=== PATIENT | male | born 1970 | race Hispanic/Latino ===

== ENCOUNTER 2018-10-02 20:41 | Emergency (ER) | payer OTHER, SELFPAY ==
[2018-10-02] MEDS ORDERED: IBUPROFEN 600 MG TABLET ONE (21:34)
== END 2018-10-02 22:25 | disposition home or self-care (01) ==
LOC: EDH 20:41
DX: S62.396A Other fracture of fifth metacarpal bone, right hand, initial encounter for closed fracture (principal); W21.11XA Struck by baseball bat, initial encounter; Y93.64 Activity, baseball; Y92.39 Other specified sports and athletic area as the place of occurrence of the external cause; Y99.8 Other external cause status
CPT/HCPCS: 29125; 73130

== ENCOUNTER 2018-12-22 18:58 | Emergency (ER) | payer OTHER, SELFPAY | END 2018-12-22 19:29 | disposition home or self-care (01) | LOC: EDH 18:58 | DX: M79.672 Pain in left foot (principal) | CPT/HCPCS: 99281 ==

== ENCOUNTER 2019-07-10 20:56 | Emergency (ER) | payer OTHER ==
[2019-07-10] MEDS ORDERED: KETOROLAC TROMETHAMINE 60 MG/2 ML VIAL ONE (21:56)
[2019-07-10] MEDS ORDERED: COLCHICINE 0.6 MG TABLET ONE (23:35)
[2019-07-11] MEDS ORDERED: ACETAMINOPHEN EXTRA STRENGTH 500 MG TABLET ONE (00:07)
== END 2019-07-11 01:22 | disposition home or self-care (01) ==
LOC: EDH 20:56
DX: S83.91XA Sprain of unspecified site of right knee, initial encounter (principal); X58.XXXA Exposure to other specified factors, initial encounter; Y93.89 Activity, other specified; Y92.89 Other specified places as the place of occurrence of the external cause; Y99.8 Other external cause status
CPT/HCPCS: 73562; 96372; 99283; J1885

== ENCOUNTER 2019-10-03 15:38 | Emergency (ER) | payer SELFPAY ==
[2019-10-03 16:30] LABS: BASOPHILS % (AUTO) 0.2 % (0.0-5.0); HEMATOCRIT 45.8 % (42-54); LYMPHOCYTES % (AUTO) 22.1 % (21.0-51.0); MEAN CORPUSCULAR HEMOGLOBIN 31.4 pg (27.0-33.0); MEAN CORPUSCULAR HGB CONC 34.7 g/dL (32.0-36.0); MEAN CORPUSCULAR VOLUME 90.3 fL (79-99); MONOCYTES % (AUTO) 9.2 % (3.0-13.0); NEUTROPHILS % (AUTO) 68.1 % (40.0-77.0); PLATELET COUNT (AUTO) 211 K/uL (130-400); RED BLOOD CELL COUNT(AUTO) 5.07 MIL/uL (4.50-6.20); RED CELL DISTRIBUTION WIDTH 12.2 % (11.0-15.5); WHITE BLOOD COUNT (AUTO) 5.1 K/uL (4.8-10.8)
[2019-10-03 16:34] LABS: APPEARANCE,URINE Cloudy (CLEAR); BILIRUBIN,URINE Small (NEGATIVE); COLOR,URINE Dark Yellow (YELLOW); GLUCOSE, URINE (UA) Negative (NEGATIVE); KETONES,URINE 15 mg/dL (NEGATIVE); LEUKOCYTE ESTERASE ,URINE Trace (NEGATIVE); NITRATE,URINE Negative (NEGATIVE); OCCULT BLOOD,URINE Negative (NEGATIVE); PH,URINE 5.5 (5.0-8.0); PROTEIN,URINE POS 1+ mg/dL (NEGATIVE)
[2019-10-03 16:37] LABS: CREATININE 1.4 mg/dL (0.5-1.5); POTASSIUM 4.6 mmol/L (3.5-5.1)
[2019-10-03 16:43] LABS: ALBUMIN 3.6 g/dL (3.5-5.0); BILIRUBIN,TOTAL 0.4 mg/dL (0.2-1.0); TOTAL PROTEIN, SERUM 7.5 g/dL (6.0-8.3)
[2019-10-03 17:10] LABS: BACTERIA,URINE Few /HPF (None Seen); MUCUS,URINE Few LPF (None Seen); OTHER CASTS, URINE WBC CASTS 1+ /LPF (None Seen); RBC,URINE None Seen /HPF (0-1); SQUAMOUS EPITHELIAL CELL,UR None Seen /HPF (0-2)
[2019-10-03 19:19] LABS: RAPID GROUP A STREP NEGATIVE (NEGATIVE)
== END 2019-10-03 20:03 | disposition home or self-care (01) ==
LOC: EDH 15:38
DX: R05 Cough (principal); R10.9 Unspecified abdominal pain; Z87.891 Personal history of nicotine dependence
CPT/HCPCS: 36415; 71045; 80053; 81001; 82150; 83690; 85025; 87804; 87880

== ENCOUNTER 2021-12-28 07:13 | Emergency (ER) | payer BC, OTHER ==
[~2021-12-28] VITALS: Ht 182.9 cm; Wt 129.3 kg
[2021-12-28 07:14] VITALS: BP 137/78
[2021-12-28] MEDS ORDERED: INDO50CA98 PO (07:38)
[2021-12-28] MEDS ORDERED: KETOROLAC 60 MG VIAL (30MG/ML) IM ONE (08:00)
== END 2021-12-28 07:45 | disposition home or self-care (01) ==
LOC: EDH 07:13
DX: M10.9 Gout, unspecified (principal)
CPT/HCPCS: 99284; 36415; 96372; J1885

== ENCOUNTER 2022-01-22 07:26 | Emergency (ER) | payer BC ==
[~2022-01-22] VITALS: Ht 182.9 cm; Wt 135.6 kg
[~2022-01-22 07:26] MED LIST: INDO50CA98 PO
[2022-01-22 07:27] VITALS: BP 122/87
[2022-01-22] MEDS ORDERED: KETOROLAC 60 MG VIAL (30MG/ML) IM ONE (08:30)
[2022-01-22] MEDS ORDERED: INDO50CA98 PO (08:31)
== END 2022-01-22 08:44 | disposition home or self-care (01) ==
LOC: EDH 07:26
DX: M10.9 Gout, unspecified (principal)
CPT/HCPCS: 99284; 96372; J1885

== ENCOUNTER → 2022-04-05 | Emergency (ER) | payer BC | LOC: EDH 15:10 | DX: M25.569 Pain in unspecified knee (principal); Z53.21 Procedure and treatment not carried out due to patient leaving prior to being seen by health care provider ==

== ENCOUNTER 2022-05-23 06:31 | Emergency (ER) | payer BC ==
[~2022-05-23] VITALS: Ht 182.9 cm; Wt 131.1 kg
[2022-05-23 08:12] LABS: BASOPHILS % (AUTO) 0.6 % (0.0-5.0); EOSINOPHILS % (AUTO) 1.5 % (0.0-8.0); LYMPHOCYTES % (AUTO) 19.3 % (21.0-51.0); MEAN CORPUSCULAR HEMOGLOBIN 31.8 pg (27.0-33.0); MEAN CORPUSCULAR HGB CONC 35.5 g/dL (32.0-36.0); MEAN CORPUSCULAR VOLUME 89.6 fL (79-99); MONOCYTES % (AUTO) 7.6 % (3.0-13.0); NEUTROPHILS % (AUTO) 70.9 % (40.0-77.0); PLATELET COUNT (AUTO) 245 K/uL (130-400); RED BLOOD CELL COUNT(AUTO) 4.69 MIL/uL (4.50-6.20); RED CELL DISTRIBUTION WIDTH 12.3 % (11.0-15.5); WHITE BLOOD COUNT (AUTO) 6.8 K/uL (4.8-10.8)
[2022-05-23 08:52] LABS: CREATININE 1.1 mg/dL (0.5-1.5); POTASSIUM 3.9 mmol/L (3.5-5.1)
[2022-05-23 08:56] LABS: ALBUMIN 2.8 g/dL (3.5-5.0)
[2022-05-23] MEDS ORDERED: INDO50CA98 PO (09:10)
[2022-05-23] MEDS ORDERED: KETOROLAC 60 MG VIAL (30MG/ML) IM ONE ×2 (09:16→09:30)
[2022-05-23 09:19] VITALS: BP 125/81
== END 2022-05-23 09:28 | disposition home or self-care (01) ==
LOC: EDH 06:31
DX: M10.9 Gout, unspecified (principal)
CPT/HCPCS: 99284; 80053; 85025; 36415; 73630; 96372; J1885

== ENCOUNTER 2022-07-11 13:54 | Emergency (ER) | payer BC ==
[~2022-07-11] VITALS: Ht 182.9 cm; Wt 132.9 kg
[2022-07-11] MEDS ORDERED: INDO50CA98 PO (15:59)
[2022-07-11] MEDS ORDERED: KETOROLAC 30MG VIAL (30MG/ML) IM ONE (16:00)
[2022-07-11 17:15] VITALS: BP 146/80
== END 2022-07-11 17:31 | disposition home or self-care (01) ==
LOC: EDH 13:54
DX: M10.9 Gout, unspecified (principal)
CPT/HCPCS: 99284; 84550; 36415; 73660; 96372; J1885

== ENCOUNTER 2022-11-13 15:54 | Emergency (ER) | payer BC ==
[~2022-11-13] VITALS: Ht 182.9 cm; Wt 131.5 kg
[2022-11-13] MEDS ORDERED: ACETAMINOPHEN 500 MG TABLET PO ONE (16:00)
[2022-11-13] MEDS ORDERED: OSEL75 PO (18:26)
[2022-11-13] MEDS ORDERED: AMOX1TAB16 PO (18:26)
[2022-11-13 18:29] VITALS: BP 132/84
== END 2022-11-13 18:36 | disposition home or self-care (01) ==
LOC: EDH 15:54
DX: J10.1 Influenza due to other identified influenza virus with other respiratory manifestations (principal); J02.0 Streptococcal pharyngitis; Z20.822 Contact with and (suspected) exposure to COVID-19; Z79.899 Other long term (current) drug therapy
CPT/HCPCS: 99283; 87635; 87880; 87804 ×2; C9803

== ENCOUNTER 2023-11-29 20:48 | Emergency (ER) | payer BC ==
[~2023-11-29] VITALS: Ht 182.9 cm; Wt 131.5 kg
[~2023-11-29 20:48] MED LIST changes: +AMOX1TAB16 PO; +OSEL75 PO
[2023-11-29] MEDS: ORPHENADRINE 60MG/2ML IM STA (23:12)
[2023-11-29] MEDS: KETOROLAC 30MG VIAL (30MG/ML) IM ONE (23:13)
[2023-11-29 23:14] VITALS: BP 132/80; PULSE 80; RESP 20; O2SAT 100
[2023-11-29] MEDS ORDERED: METH-662 PO (23:31)
[2023-11-29] MEDS ORDERED: NAPR375T6 PO (23:31)
== END 2023-11-29 23:56 | disposition home or self-care (01) ==
LOC: EDH 20:48
DX: M10.9 Gout, unspecified (principal); Z79.899 Other long term (current) drug therapy
CPT/HCPCS: 99284; 96372 ×2; J1885; J2360

== ENCOUNTER 2023-12-04 13:14 | Emergency (ER) | payer BC ==
[~2023-12-04] VITALS: Ht 182.9 cm; Wt 131.5 kg
[~2023-12-04 13:14] MED LIST changes: +METH-662 PO; +NAPR375T6 PO
[2023-12-04] MEDS: HYDROCODONE/ACETAMINOPHEN 5/325 MG TAB PO ONE (13:33)
[2023-12-04] MEDS ORDERED: COLCHICINE 0.6 MG TABLET PO SCH (14:30)
[2023-12-04] MEDS ORDERED: PRED5TAB PO (14:34)
[2023-12-04] MEDS ORDERED: ALLO100T PO (14:34)
[2023-12-04] MEDS: KETOROLAC 30MG VIAL (30MG/ML) IM ONE (14:40)
[2023-12-04] MEDS: PREDNISONE 20 MG TABLET PO ONE (14:40)
[2023-12-04] MEDS: COLCHICINE 0.6 MG TABLET PO ONE (15:01)
[2023-12-04] MEDS: COLCHICINE 0.6 MG TABLET PO SCH (15:25)
[2023-12-04 15:26] VITALS: BP 131/71; PULSE 74; RESP 18; O2SAT 98
== END 2023-12-04 15:47 | disposition home or self-care (01) ==
LOC: EDH 13:14
DX: M10.9 Gout, unspecified (principal); M77.31 Calcaneal spur, right foot; F17.200 Nicotine dependence, unspecified, uncomplicated; Z79.899 Other long term (current) drug therapy
CPT/HCPCS: 99284; 84550; 85651; 36415; 73610; 96372; J1885

== ENCOUNTER 2023-12-29 19:58 | Emergency (ER) | payer BC ==
[~2023-12-29] VITALS: Ht 182.9 cm; Wt 131.5 kg
[~2023-12-29 19:58] MED LIST changes: +ALLO100T PO; +PRED5TAB PO
[2023-12-29] MEDS ORDERED: PRED20TA3 PO (20:49)
[2023-12-29] MEDS ORDERED: COLC0.6T73 PO (20:49)
[2023-12-29] MEDS: COLCHicine 0.6 MG TABLET PO SCH (21:16)
[2023-12-29] MEDS: Solu-medROL 125MG VIAL IM ONE (21:17)
[2023-12-29] MEDS: KETOROLAC 15MG/ML VIAL (15MG/ML) IM ONE (21:17)
[2023-12-29] MEDS ORDERED: INDO50CA98 PO (21:22)
[2023-12-29] MEDS: hydroMORPHone 0.5 MG SYG (0.5MG/0.5ML) IM ONE (22:36)
[2023-12-29 23:30] VITALS: BP 132/74; PULSE 76; RESP 18; O2SAT 98
== END 2023-12-29 23:31 | disposition home or self-care (01) ==
LOC: EDH 19:58
DX: M77.31 Calcaneal spur, right foot (principal); E66.01 Morbid (severe) obesity due to excess calories; M10.9 Gout, unspecified; F10.90 Alcohol use, unspecified, uncomplicated; F17.200 Nicotine dependence, unspecified, uncomplicated; Z79.52 Long term (current) use of systemic steroids; Z79.899 Other long term (current) drug therapy
CPT/HCPCS: 99284; 96372 ×3; J2919; J1885; J1170

== ENCOUNTER 2024-05-03 08:24 | Emergency (ER) | payer BC ==
[~2024-05-03] VITALS: Ht 182.9 cm; Wt 133.8 kg
[~2024-05-03 08:24] MED LIST changes: +COLC0.6T73 PO; +NAPR-1505 PO; -NAPR375T6 PO; +PRED20TA3 PO
[2024-05-03] MEDS: dexaMETHasone SOD PHOSPHATE 4 MG/ML 1ML VIAL IM ONE (09:02)
[2024-05-03] MEDS: ketOROlac 60 MG VIAL (30MG/ML) IM ONE (09:02)
[2024-05-03] MEDS: HYDROcodone/acetaMINOPHEN 10/325 MG TAB PO ONE (09:03)
--- NOTE | 2024-05-03 09:23 | ERN ---
ED Note History of Present Illness Stated Complaint: ELBOW PAIN Chief Complaint: Elbow Problem Time Seen by MD: 08:28 Dictation: 53-year-old male presents to the ED for evaluation of right elbow pain onset 1 week ago. Patient reports history of gout. Patient denies any trauma, injury or any other associated symptoms at this time. Allergies: Coded Allergies: No Known Allergies (Unverified Allergy, Unknown, 10/02/18) No Known Drug Allergies (Unverified Allergy, Unknown, 07/11/19) Home Meds Active Scripts Naproxen (Naproxen) 250 Mg Tablet, 250 MG PO BID for 5 Days, #10 TAB Prov:JOHN MARTINO MD 05/03/24 Colchicine (Colchicine) 0.6 Mg Capsule, 1 CAP PO DAILY for 30 Days, #30 CAP 0 Refills Prov:JOHN MARTINO MD 05/03/24 Indomethacin (Indomethacin) 50 Mg Capsule, 50 MG PO TID for gouty pain, #30 CAP Prov:LENNY GILL MD 12/29/23 Prednisone (Prednisone) 20 Mg Tablet, 20 MG PO DAILY for 5 Days, #5 TAB Prov:LENNY GILL MD 12/29/23 Colchicine (Colchicine) 0.6 Mg Tablet, 0.6 MG PO QID for gout pain, #30 TAB Prov:LENNY GILL MD 12/29/23 Prednisone (Prednisone) 5 Mg Tablet, 30 MG PO DAILY for 4 Days, #4 TAB 0 Refills Prov:JOSE DUNN NP 12/04/23 Allopurinol (Allopurinol) 100 Mg Tablet, 100 MG PO DAILY for 7 Days, #7 TAB 0 Refills Prov:JOSE DUNN NP 12/04/23 Methocarbamol (Robaxin) 750 Mg Tab, 750 MG PO BID for 5 Days, #10 TAB Prov:MAGGIE HERNANDEZ MD 11/29/23 Naproxen (Naproxen) 375 Mg Tablet.dr, 375 MG PO BID PRN for PAIN for 10 Days, #20 TAB Prov:MAGGIE HERNADNEZ MD 11/29/23 Amoxicillin/Potassium Clav (Amox Tr-K Clv 875-125 mg Tab) 1 Each Tablet, 1 EACH PO BID for 10 Days, #20 TAB Prov:LAURA COOK 11/13/22 Oseltamivir Phosphate (Tamiflu) 75 Mg Cap, 75 MG PO BID for 5 Days, #10 CAP Prov:LAURA COOK V RIVET HOLE MACHINE OPERATOR 11/13/22 Indomethacin (Indomethacin) 50 Mg Capsule, 50 MG PO TID for 30 Days, #90 CAP Prov:LAURA COOK V RIVET HOLE MACHINE OPERATOR 07/11/22 Indomethacin (Indomethacin) 50 Mg Capsule, 50 MG PO TID PRN for PAIN, #30 CAP 0 Refills Prov:GERTRUDE TARIQ MD 05/23/22 Indomethacin (Indomethacin) 50 Mg Capsule, 50 MG PO TIDP PRN for Gout pain, #20 CAP 2 Refills Prov:KIERAN ECHEVERRIA MD 01/22/22 Indomethacin (Indomethacin) 50 Mg Capsule, 50 MG PO TIDP PRN for SEVERE PAIN (7- 10), #20 CAP 0 Refills Prov:KIERAN ECHEVERRIA MD 12/28/21 Past Medical History Past Medical History: Other Additional Past Medical Hx: GOUT Surgical History: None Family History: CAD Social History: Smokers, ETOH, Lives with family, Other Review of System Dictation Constitutional: Negative for fever,chills, and weight loss Eyes: Negative for injury, pain,redness, and discharge ENT: Negative for injury,pain or swelling Cardiovascular: Negative for chest pain, palpitations, and edema Respiratory: Negative for shortness of breath, cough, and wheezing, Abdomen/GI: Negative for abdominal pain, nausea, vomiting, diarrhea, and constipation Back: Negative for injury and pain : Negative for injury, bleeding and discharge MS/Extremity: Positive for right elbow pain Negative for injury and deformity Skin: Negative for rash, and discoloration Neuro: Negative for headache, weakness, numbness, tingling, and seizure Psych: Negative for suicide ideation, homicidal ideation, and hallucinations Initial Vital Sign VS Vital Signs Date Time Temp Pulse Resp B/P (MAP) Pulse Ox O2 Delivery O2 Flow Rate FiO2 05/03/24 08:27 98.2 71 18 135/67 98 05/03/24 08:54 Room Air* 0 21 Physical Exam Dictation General: awake, alert, NAD Head/Face: Normocephalic, atraumatic Eyes: PERRL, EOMI, vision at baseline ENT: oral cavity clear, TMs clear, no signs of infection Neck: Trachea midline, supple, no nuchal rigidity Cardiovascular: RRR, normal S1/S2, No MRGs, no JVD Respiratory: CTAB, no respiratory distress, No rales or wheezes Abdomen: Soft, non-tender, non-distended, normal bowel sounds, no guarding or rebound. Skin: Warm, dry, normal turgor, no rash MS/Extremity: Pulses equal, no cyanosis, neurovascular intact, painful range of motion Neuro: COAx4, GCS 15, strength 5/5, CN 2-12 intact, normal cerebellar exam, normal gait, Psych: Normal behavior, mood, and affect normal Results (Laboratory/Radiology) Laboratory/Radiology Laboratory Tests Test 05/03/24 08:39 Whole Blood Glucose 112 MG/DL (70-110) H Labs Reviewed?: Yes ED Course ED Course Orders Procedure Category Date Status Time Dexamethasone 4mg/Ml PHA 05/03/24 Complete 1ml Vial (Dexametha 09:00 Ketorolac 60mg/2ml PHA 05/03/24 Complete (Toradol 60mg/2ml) 09:00 Hydrocodone/Apap PHA 05/03/24 Complete 10/325 Tab ([place] 10) 09:00 Current Medications Medications (Trade) Dose Ordered Sig/Dino Route PRN Reason Start Time Stop Time Status Last Admin Dose Admin Acetaminophen/ Hydrocodone Bitart (NORco 10) 1 tab ONCE ONCE PO 05/03/24 09:00 05/03/24 09:01 DC 05/03/24 09:03 Dexamethasone Sodium Phosphate (dexaMETHasone 4MG/ML 1ML VIAL) 6 mg ONCE ONCE IM 05/03/24 09:00 05/03/24 09:01 DC 05/03/24 09:02 Ketorolac Tromethamine (toRADol 60MG/ 2ML) 30 mg ONCE ONCE IM 05/03/24 09:00 05/03/24 09:01 DC 05/03/24 09:02 Vital Signs Date Time Temp Pulse Resp B/P (MAP) Pulse Ox O2 Delivery O2 Flow Rate FiO2 05/03/24 08:54 98.6 70 16 130/84 99 Room Air* 0 21 05/03/24 08:27 98.2 71 18 135/67 98 Medical Decision Making MDM MDM: Differential diagnosis: Elbow pain, gout, elbow effusion Previous outside records reviewed: Old ER visits. Need for hospitalization: Patient does not meet criteria for hospitalization. Need for emergency major/minor surgery: No Patient's prior external medical records from other ER visits were reviewed by me as indicated. Prior testing and results from previous visits were reviewed. Prior tests were taken into account with medical decision making and resource utilization, independent historian/historians were used to obtain complete medical history. I independently interpreted the test that were performed, results were reviewed by me and considered findings on radiology if ordered. Medical management and examination interpretation discussions were had by me with other qualified healthcare professionals as indicated for the patient's care. Patient is improving and stable. Discussed physical findings, results, current treatment plan for discharge and plan of treatment with patient. Follow up and return to emergency department and warnings for any new or worsening conditions given. Patient understands and agrees with plan discussed. All questions have been answered at this time. DX & DISP Disposition: Discharge Departure Impression: Primary Impression: Acute gout Additional Impression: Effusion, right elbow Condition: Stable Scripts Naproxen (Naproxen) 250 Mg Tablet 250 MG PO BID for 5 Days, #10 TAB Prov: JOHN MARTINO MD 05/03/24 Colchicine (Colchicine) 0.6 Mg Capsule 1 CAP PO DAILY for 30 Days, #30 CAP 0 Refills Prov: JOHN MARTINO MD 05/03/24 Referrals: JCARLOS BALLESTEROS MD (PCP) Time of Disposition: 10:00 I have reviewed, & agreed with my scribe's, documentation. (Entered by Tate Dennison, acting as a scribe for Dr. Martino) I personally scribed for JOHN MARTINO MD ([email or web address]) on 05/03/24 at 09:23. Electronically submitted by Tate Dennison ([email or web address]). I personally scribed for JOHN MARTINO MD ([email or web address]) on 05/03/24 at 10:06. Electronically submitted by Tate Dennison ([email or web address]). JOHN MARTINO MD May 03, 2024 09:23
[2024-05-03] MEDS ORDERED: COLC0.6C3 PO (10:00)
[2024-05-03] MEDS ORDERED: NAPR-1196 PO (10:00)
[2024-05-03 10:07] VITALS: BP 127/76; PULSE 70; RESP 16; TEMP 98.6; O2SAT 98
[2024-05-03] MEDS: hydroMORPHone 0.5 MG SYG (0.5MG/0.5ML) IVP ONE (10:49)
--- NOTE | 2024-05-03 11:05 | NUR ---
PT AAOX4, STABLE NO DISTRESS VITALS WNL PT MEDICATED FOR PAIN PRIOR TO DISCHARGED PT STATES HE READY TO GO HOME. PT HAD NO IV, PT GIVEN INSTRUCTIONS FOR HOME WILL VICE PRESIDENT NETWORK PRESCRIPTIONS FROM PHARMACY AND START TODAY. PT DRIVEN HOME BY .
== END 2024-05-03 11:09 | disposition home or self-care (01) ==
LOC: EDH 08:24
DX: M10.9 Gout, unspecified (principal); F17.200 Nicotine dependence, unspecified, uncomplicated; Z79.52 Long term (current) use of systemic steroids; Z79.899 Other long term (current) drug therapy
CPT/HCPCS: 99284; 96374; 82948; 96372 ×2; J1100; J1885; J1171

== ENCOUNTER 2024-06-19 07:11 | Emergency (ER) | payer BC ==
[~2024-06-19] VITALS: Ht 182.9 cm; Wt 133.8 kg
[~2024-06-19 07:11] MED LIST changes: +COLC0.6C3 PO; +NAPR-1196 PO
--- NOTE | 2024-06-19 08:37 | ERN ---
General Chief Complaint: Elbow Problem Stated Complaint: RIGHT ELBOW PAIN Time Seen by MD: 07:22 History of Present Illness Initial Comments Patient is a 53-year-old male with a past medical history of gout who presented to the emergency room with acute onset of severe pain, redness and swelling to the right elbow the symptoms started about 3 days ago and have progressively worsened. Patient described the pain as sharp, throbbing and continuous in frequency rated the pain as a 9/10. Pain is exacerbated by movement and reli eved mildly by rest. Patient reports similar episodes in the past. No history of trauma or falls. States he ate at a restaurant prior to the onset the pain. Patient denies any chest pain, shortness of breath, palpitations, nausea vomiting or change in bowel movements. Allergies: Coded Allergies: No Known Allergies (Unverified Allergy, Unknown, 10/02/18) No Known Drug Allergies (Unverified Allergy, Unknown, 07/11/19) Home Meds Active Scripts Naproxen (Naproxen) 250 Mg Tablet, 250 MG PO BID for 5 Days, #10 TAB Prov:JOHN MARTINO MD 05/03/24 Colchicine (Colchicine) 0.6 Mg Capsule, 1 CAP PO DAILY for 30 Days, #30 CAP 0 Refills Prov:JOHN MARTINO MD 05/03/24 Indomethacin (Indomethacin) 50 Mg Capsule, 50 MG PO TID for gouty pain, #30 CAP Prov:LENNY GILL MD 12/29/23 Prednisone (Prednisone) 20 Mg Tablet, 20 MG PO DAILY for 5 Days, #5 TAB Prov:LENNY GILL MD 12/29/23 Colchicine (Colchicine) 0.6 Mg Tablet, 0.6 MG PO QID for gout pain, #30 TAB Prov:LENNY GILL MD 12/29/23 Prednisone (Prednisone) 5 Mg Tablet, 30 MG PO DAILY for 4 Days, #4 TAB 0 Refills Prov:JOSE DUNN NP 12/04/23 Allopurinol (Allopurinol) 100 Mg Tablet, 100 MG PO DAILY for 7 Days, #7 TAB 0 Refills Prov:JOSE DUNN NP 12/04/23 Methocarbamol (Robaxin) 750 Mg Tab, 750 MG PO BID for 5 Days, #10 TAB Prov:MAGGIE HERNANDEZ MD 11/29/23 Naproxen (Naproxen) 375 Mg Tablet.dr, 375 MG PO BID PRN for PAIN for 10 Days, #20 TAB Prov:MAGGIE HERNANDEZ MD 11/29/23 Amoxicillin/Potassium Clav (Amox Tr-K Clv 875-125 mg Tab) 1 Each Tablet, 1 EACH PO BID for 10 Days, #20 TAB Prov:LAURA COOK V HAND ROUTER OPERATOR 11/13/22 Oseltamivir Phosphate (Tamiflu) 75 Mg Cap, 75 MG PO BID for 5 Days, #10 CAP Prov:LAURA COOK V HAND ROUTER OPERATOR 11/13/22 Indomethacin (Indomethacin) 50 Mg Capsule, 50 MG PO TID for 30 Days, #90 CAP Prov:LAURA COOKP 07/11/22 Indomethacin (Indomethacin) 50 Mg Capsule, 50 MG PO TID PRN for PAIN, #30 CAP 0 Refills Prov:GERTRUDE TARIQ MD 05/23/22 Indomethacin (Indomethacin) 50 Mg Capsule, 50 MG PO TIDP PRN for Gout pain, #20 CAP 2 Refills Prov:KIERAN ECHEVERRIA MD 01/22/22 Indomethacin (Indomethacin) 50 Mg Capsule, 50 MG PO TIDP PRN for SEVERE PAIN (7- 10), #20 CAP 0 Refills Prov:KIERAN ECHEVERRIA MD 12/28/21 Past Medical History Past Medical History: Other Medical History Other: GOUT Past Surgical History: None Family History Family History: CAD Social History Social History: Smokers, ETOH, Lives with family, Other ROS Dictation Constitutional: No appetite loss, No fevers, chills , No night sweats, No weakness, fatigue Eye: No vision change, No redness, pain or discharge ENT: No hearing loss, ear pain or discharge, No nose bleeds, No sore throat, Neck: No swelling. pain or stiffness Respiratory: No cough, shortness of breath, wheezing Cardiovascular: No chest pain,, palpitations, dyspnea, No edema Gastrointestinal: No abdominal pain, No nausea, vomiting, No diarrhea, constipation Genitourinary: No painful urination, No blood in urine, No urinary incontinence, No frequency or urgency Musculoskeletal: Right elbow pain , swelling or stiffness Neurological: No numbness, tingling, No weakness, tremors or seizures Psychiatric: : No depression, No anxiety, No sleep disturbance, No Memory changes Lymphatic: No easy bruising, No bleeding tendencies , No swollen lymph nodes A 13-point Review of Systems was assessed, all of which are negative except for HPI or as indicated above. Physical Exam Physical Exam Dictation General: Alert & Oriented, No acute distress. EENT: No conjunctival redness or discharge noted Tympanic membranes are clear, Normal hearing, Oral mucosa is moist, No pharyngeal erythema, No nasal discharge, No oral lesions. Neck: Non-tender, No jugular vein distention, No lymphadenopathy, No thyromegaly, Supple. Respiratory: Lungs are clear to auscultation, Respirations are non-labored, Breath sounds are equal, No chest wall tenderness, _. Cardiovascular: Normal rate, Normal rhythm, No murmur, Good pulses equal in all extremities, Normal peripheral perfusion, No edema. Gastrointestinal: Soft, Non-tender, Non-distended, Normal bowel sounds, No organomegaly, _. Musculoskeletal: Decreased range of motion, decreased strength, tenderness, swelling, Integumentary: Warm, Dry, [place], Intact, No pallor, No rash. Neurologic: Alert, Oriented x4, Normal sensory, No focal defects Psychiatric: Cooperative, Appropriate mood & affect, Normal judgement, Non- suicidal. MDM Potential differential diagnoses include: * Acute gout * Rheumatoid arthritis * Trauma * Assessment: Patient with a right swollen elbow, we will order Toradol 30 mg IM and Kenalog 40 mg for adequate pain relief. I will re-evaluate the patient after treatment to determine whether they require further testing, can be safely discharged home, or need admission for further treatment and evaluation. Given the social determinants of health affecting care, including literacy, access to medical care, prescription drug management, and [id number] drugs, I will ensure that treatment plans are tailored accordingly. Revaluation : Patient is alert and oriented. States she feels a lot better . Disposition: Will discharge patient at this time with prescription of Naproxen 500mg. PO and instructions to follow up with PCP for further evaluation and treatment. Attestation: Patient's case was discussed with the ER MD. Reviewed the documentation, medical decision making and treatment plan. Agrees with the findings and plan of care. ED Course Orders Procedure Category Date Status Time Ketorolac 60mg/2ml PHA 06/19/24 Complete (Toradol 60mg/2ml) 08:00 Triamcinolone Acet PHA 06/19/24 Complete 40mg/Ml 1ml (Kenalog 08:00 Current Medications Medications (Trade) Dose Ordered Sig/Dino Route PRN Reason Start Time Stop Time Status Last Admin Dose Admin Ketorolac Tromethamine (toRADol 60MG/ 2ML) 30 mg ONCE ONCE IM 06/19/24 08:00 06/19/24 08:02 DC Triamcinolone Acetonide (Kenalog 40) 40 mg ONCE ONCE SQ 06/19/24 08:00 06/19/24 08:02 DC Vital Signs Date Time Temp Pulse Resp B/P (MAP) Pulse Ox O2 Delivery O2 Flow Rate FiO2 06/19/24 07:12 99.0 75 20 124/71 96 Room Air 0 DX & DISP Disposition: Discharge Departure Impression: Primary Impression: Acute gout Critical Time: 30 minutes Condition: Stable Scripts Naproxen (Naproxen) 250 Mg Tablet 1 TAB PO BID for pain for 15 Days, #30 TAB 0 Refills Prov: RICHELLE MARMOLEJO MD 06/19/24 Referrals: JCARLOS BALLESTEROS MD (PCP) RICHELLE MARMOLEJO MD Jun 19, 2024 08:37
[2024-06-19] MEDS ORDERED: NAPR-1196 PO (08:53)
[2024-06-19 09:42] VITALS: BP 151/77; PULSE 87; RESP 18; TEMP 98.7; O2SAT 100
[2024-06-19] MEDS: TRIAMCINOLONE ACETONIDE 40 MG/ML 1ML VIAL SQ ONE (09:52)
[2024-06-19] MEDS: ketOROlac 60 MG VIAL (30MG/ML) IM ONE (09:52)
== END 2024-06-19 10:09 | disposition home or self-care (01) ==
LOC: EDH 07:11
DX: M10.9 Gout, unspecified (principal); F17.200 Nicotine dependence, unspecified, uncomplicated; Z79.52 Long term (current) use of systemic steroids; Z79.899 Other long term (current) drug therapy
CPT/HCPCS: 99284; 96372 ×2; J1885; J3301

== ENCOUNTER 2024-11-08 18:01 | Emergency (ER) | payer BC ==
[~2024-11-08] VITALS: Ht 182.9 cm; Wt 131.5 kg
--- NOTE | 2024-11-08 18:12 | ERN ---
ED Note History of Present Illness Stated Complaint: RT FOOT PAIN Chief Complaint: FOOT INJURY/PAIN Time Seen by MD: 18:05 Time Seen by Midlevel: 18:06 Dictation: 54-year-old male who presents to the emergency department due to reported having a flare-up of his gout that began 4 days ago. He states that he has been dealing with a gone for years in today the flare-up is occurring I his right foot. Patient states that the pain feels exactly like when he has post flare- ups. At this time, he rates his pain level as a 10/10. Currently, he denies having any fever, chills or any reported trauma. Patient states the pain is worsened when he attempts to ambulate in the right foot. Upon initial evaluation, the patient presents mildly uncomfortable looking. 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6 Mg Tablet, 0.6 MG PO QID for gout pain, #30 TAB Prov:LENNY GILL MD 12/29/23 Prednisone (Prednisone) 5 Mg Tablet, 30 MG PO DAILY for 4 Days, #4 TAB 0 Refills Prov:JOSE DUNN NP 12/04/23 Allopurinol (Allopurinol) 100 Mg Tablet, 100 MG PO DAILY for 7 Days, #7 TAB 0 Refills Prov:JOSE DUNN NP 12/04/23 Methocarbamol (Robaxin) 750 Mg Tab, 750 MG PO BID for 5 Days, #10 TAB Prov:MAGGIE HERNANDEZ MD 11/29/23 Naproxen (Naproxen) 375 Mg Tablet.dr, 375 MG PO BID PRN for PAIN for 10 Days, #20 TAB Prov:MAGGIE HERNANDEZ MD 11/29/23 Amoxicillin/Potassium Clav (Amox Tr-K Clv 875-125 mg Tab) 1 Each Tablet, 1 EACH PO BID for 10 Days, #20 TAB Prov:LAURA COOK V SPOUT LINER HELPER 11/13/22 Oseltamivir Phosphate (Tamiflu) 75 Mg Cap, 75 MG PO BID for 5 Days, #10 CAP Prov:LAURA COOK V SPOUT LINER HELPER 11/13/22 Indomethacin (Indomethacin) 50 Mg Capsule, 50 MG PO TID for 30 Days, #90 CAP Prov:LAURA COOK V SPOUT LINER HELPER 07/11/22 Indomethacin (Indomethacin) 50 Mg Capsule, 50 MG PO TID PRN for PAIN, #30 CAP 0 Refills Prov:GERTRUDE TARIQ MD 05/23/22 Indomethacin (Indomethacin) 50 Mg Capsule, 50 MG PO TIDP PRN for Gout pain, #20 CAP 2 Refills Prov:KIERAN ECHEVERRIA MD 01/22/22 Indomethacin (Indomethacin) 50 Mg Capsule, 50 MG PO TIDP PRN for SEVERE PAIN (7- 10), #20 CAP 0 Refills Prov:KIERAN ECHEVERRIA MD 12/28/21 Past Medical History Past Medical History: Other Additional Past Medical Hx: GOUT Surgical History: None Family History: CAD Social History: Smokers, ETOH, Lives with family, Other RN Note Reviewed/Agreed w/PFSH: Yes Review of System Dictation MS/Extremity: Right foot pain. Initial Vital Sign VS Vital Signs Date Time Temp Pulse Resp B/P (MAP) Pulse Ox O2 Delivery O2 Flow Rate FiO2 11/08/24 18:03 98.2 72 18 146/89 95 Room Air 0 11/08/24 19:32 21 Physical Exam Dictation General: awake, alert, NAD Head/Face: Normocephalic, atraumatic Eyes: PERRL, EOMI ENT: Oral mucosa moist Neck: Trachea midline, supple Cardiovascular: RRR, no edema Respiratory: Symmetrical, non-labored Abdomen: Soft, non-tender, non-distended, no guarding. Skin: Warm, dry, good turgor, no rash MS/Extremity: Pain, swelling and tenderness to the dorsal aspect of the right foot. Normal neurovascular examination. Neuro: COAx4, GCS 15, steady gait, Psych: Normal behavior, mood, and affect normal ED Course ED Course Orders Procedure Category Date Status Time Ketorolac 60mg/2ml PHA 11/08/24 Complete (Toradol 60mg/2ml) 19:00 Methylprednisolone PHA 11/08/24 Complete Acetate (Depo-Medrol 19:00 Current Medications Medications (Trade) Dose Ordered Sig/Dino Route PRN Reason Start Time Stop Time Status Last Admin Dose Admin Ketorolac Tromethamine (toRADol 60MG/ 2ML) 60 mg ONCE ONCE IM 11/08/24 19:00 11/08/24 19:01 DC 11/08/24 20:05 Methylprednisolone Acetate (Depo-Medrol 40 Mg/ml Vial) 80 mg ONCE ONCE IM 11/08/24 19:00 11/08/24 19:01 DC 11/08/24 20:04 Vital Signs Date Time Temp Pulse Resp B/P (MAP) Pulse Ox O2 Delivery O2 Flow Rate FiO2 11/08/24 19:32 98.2 70 16 145/85 98 Room Air* 0 21 11/08/24 18:03 98.2 72 18 146/89 95 Room Air 0 Medical Decision Making MDM MDM: Differential diagnosis: Doubt t flare-up, acute right foot pain, foot strain. Rationale: Tests considered and ordered secondary to shared decision making include: Previous outside records reviewed: Old ER visits. Risk of complication and/or morbidity or mortality of patient management: None Medications-Per medication reconciliation Need for hospitalization: Patient does not meet criteria for hospitalization. Need for emergency major/minor surgery: No There are no social concerns with this patient. Prescription drug management Prescriptions will include symptomatic care Patient's prior external medical records from other ER visits were reviewed by me as indicated. Prior testing and results from previous visits were reviewed. Prior tests were taken into account with medical decision making and resource utilization, independent historian/historians were used to obtain complete medical history. I independently interpreted the test that were performed, results were reviewed by me and considered findings on radiology if ordered. Medical management and examination interpretation discussions were had by me with other qualified healthcare professionals as indicated for the patient's care. DX & DISP Disposition: Discharge Departure Impression: Primary Impression: Chronic gout of right foot Condition: Stable Scripts Naproxen Sodium (Naproxen Sodium) 550 Mg Tablet 1 TAB PO BID for arthritis for 15 Days, #30 TAB 0 Refills Prov: CHRISTY GIBBS 11/08/24 Referrals: JCARLOS BALLESTEROS MD (PCP) Time of Disposition: 20:13 CHRISTY GIBBS Nov 08, 2024 18:12
[2024-11-08 19:32] VITALS: BP 145/85; PULSE 70; RESP 16; TEMP 98.3; O2SAT 98
[2024-11-08] MEDS: methylPREDNISolone aceTATE 40 MG/ML VIAL IM ONE (20:04)
[2024-11-08] MEDS ORDERED: NAPR-1174 PO (20:13)
== END 2024-11-08 20:26 | disposition home or self-care (01) ==
LOC: EDH 18:01
DX: M1A.0710 Idiopathic chronic gout, right ankle and foot, without tophus (tophi) (principal); F17.200 Nicotine dependence, unspecified, uncomplicated; Z79.52 Long term (current) use of systemic steroids; Z79.899 Other long term (current) drug therapy
CPT/HCPCS: 99284; 96372 ×2; J1885; J1010

== ENCOUNTER 2025-03-18 17:26 | Inpatient (IN) | payer BC ==
[~2025-03-18] VITALS: Ht 182.9 cm; Wt 139.6 kg
[~2025-03-18 17:26] MED LIST changes: -COLC0.6T73 PO; +COLC0.6T79 PO; +NAPR-1174 PO
[2025-03-18 17:55] VITALS: BP 137/82; PULSE 77; RESP 18; TEMP 98.6
--- NOTE | 2025-03-18 18:25 | HP ---
[facility] HISTORY AND PHYSICAL Date of Service: Mar 18, 2025 Time of Service: 18:24 HISTORY OF PRESENT ILLNESS: 54-year-old male with no significant past medical history presented to the hospital secondary to pain in the left lateral aspect of the chest wall. The patient states around two days ago he noted a small induration on the left anterior lateral aspect of the chest wall. The area was getting progressively indurated with increasing pain with movement of the shoulder and chest. He noted redness on the chest area. Denied any drainage from the area. Denied any insect bites, any cuts, scrapes to the chest wall. Patient is unsure if he had a rash present. Denied any chest pain, abdominal pain, nausea, vomiting. He noted he was having fevers today. Denied any nausea, vomiting. He currently does not take any medications at home. Denied any previous history of skin abscess. Patient thereafter went to [facility] for further evaluation. Patient was transferred from [facility] to [facility] due to concern for chest wall cellulitis with associated abscess. Labs in [facility] showed white count of 15.1, hemoglobin was 13.9, platelet count was 226 K, sodium was 134, potassium was 4.5, chloride was 107, bicarb was 31 , blood glucose was 114 Patient underwent a ultrasound which showed a two subcutaneous lesions with echogenic center and anechoic rims. This was concerning for possible early abscess versus infected sebaceous cyst. In [facility] ER patient had a T-max of 101.9, heart rate was 92, patient was saturating 97% on room air, blood pressure was 168/71 REVIEW OF SYSTEMS CONSTITUTIONAL: Denies fevers, chills, or night sweats. No unintentional weight loss reported. NEUROLOGICAL: Denies headache, amaurosis fugax, motor weakness, sensory deficit, vertigo/spinning sensation, gait abnormalities, or tremors. ENT: No hearing loss, otalgia, otorrhea, rhinitis, rhinorrhea, hoarseness, or sore throat. CARDIOVASCULAR: Denies any exertional angina, dyspnea on exertion, orthopnea, paroxysmal nocturnal dyspnea, palpitations, life-threatening arrhythmias, claudication. PULMONARY: Denies any shortness of breath, cough, phlegm/sputum, hemoptysis, pleuritic chest pain. GASTROINTESTINAL: Denies any type of dysphagia to either liquids or solids. Denies nausea, vomiting, pyrosis, early satiety, abdominal pain, diarrhea, c onstipation, or changes in stool consistency or caliber. Denies coffee-ground emesis, hematemesis, hematochezia, or melanotic stools. GENITOURINARY: Denies frequency, urgency, nocturia, hematuria or incontinence (Storage/Irritative symptoms.) Low urinary stream, straining to void, urinary intermittency or hesitancy, splitting of the voiding stream, terminal dribbling. ENDOCRINOLOGIC: Denies polyuria, polydipsia, polyphagia or heat/cold intolerances. HEMATOLOGIC: Denies thrombophilia/previous clots, or coagulopathy/bleeding disorders. ONCOLOGIC: Denies personal history of malignancy. DERMATOLOGIC: Positive Erythema and swelling on the left anterior chest wall area PSYCHIATRIC: Denies any suicidal or homicidal ideation. Denies hallucinations. PAST MEDICAL HISTORY: No significant past medical history PAST SURGICAL HISTORY: Denied any previous surgical history PAST SOCIAL HISTORY: Denied any smoking, alcohol, drug use FAMILY HISTORY: Denied any pertinent family Coded Allergies: No Known Allergies (Unverified Allergy, Unknown, 10/02/18) No Known Drug Allergies (Unverified Allergy, Unknown, 07/11/19) PHYSICAL EXAM GENERAL APPEARANCE: The patient is awake, alert, and oriented, in no acute cardiopulmonary distress. NEUROLOGICAL: Cranial nerves II-XII grossly intact. Motor is 5/5 in bilateral upper and lower extremities proximal to distal. No sensory deficits. HEENT: Face is symmetric. Pupils are equal and reactive. Extraocular movements are intact. NECK: Supple. No JVD. No thyromegaly. No submental, submandibular, pre- /postauricular, occipital or supraclavicular lymphadenopathy. CHEST: Normal chest expansion. No Telemetry. On the left lateral anterior asp ect of the chest wall. There is significant induration which is tender to palpation there is a small open wound which is not draining anything. There is associated erythema on the left chest wall area. No redness in the arm LUNGS: Absence of any rales, rhonchi or any wheezing. CARDIOVASCULAR: Regular. S1 and S2 normal. No appreciable rubs, murmurs or gallops. ABDOMEN: Soft, nontender, and nondistended. There is no rebound, voluntary guarding, or rigidity. : Deferred. No Berger. EXTREMITIES: Non-edematous and not cyanotic. No clubbing. Good capillary refill. SKIN: Erythema and induration on the left lateral anterior chest wall area LABS: Labs reviewed from [facility] DIAGNOSTICS / RADIOLOGY: Ultrasound was reviewed for outside ER ASSESSMENT: Sepsis secondary to chest wall cellulitis with associated abscess POA Obesity BMI 41.4 Leukocytosis secondary to chest wall cellulitis PLAN: -patient to be admitted to medical-surgical unit -in reference to chest wall cellulitis in the associated abscess. Patient will be started on vancomycin, cefepime, Flagyl. We will request consultation with General surgery. We will repeat CBC, CMP, blood cultures, A1c, procalcitonin. -we will request consultation with ID -obtain home medications which will be reconciled once available -further orders per hospitalization course Advanced Care Planning Which of the following were discussed: Hospice care: Yes __ No _x_ Therapeutic options: Yes __ No __ Advance directives: Yes __ No __ Other discussions: Discussed with who?: patient (Patient, family or surrogates) Voluntary nature of this service was explained to the patient? Yes _x_ No __ Amount of time spent: 25 minutes PREM Vazquez MD, MD Mar 18, 2025 18:25
[2025-03-18] MEDS ORDERED: VANCOMYCIN PROTOCOL PER PHARMACY IV SCH (18:30)
[2025-03-18] MEDS ORDERED: LACTATED RINGERS 1000ML 1,000 ML IV SCH (18:30)
[2025-03-18 18:34] VITALS: O2SAT 98
[2025-03-18 19:16] LABS: IMMATURE GRANULOCYTE ABSOLUTE 0.08 K/uL (0-1); NUCLEATED RED BLOOD CELLS 0.0 % (0.0-0.19); PLATELET COUNT (AUTO) 225 K/uL (130-400); RED BLOOD CELL COUNT(AUTO) 4.29 MIL/uL (4.50-6.20); RED CELL DISTRIBUTION WIDTH 12.3 % (11.0-15.5); WHITE BLOOD COUNT (AUTO) 15.4 K/uL (4.8-10.8)
[2025-03-18 19:20] LABS: ASPARTATE AMINOTRANSFERASE 12.0 U/L (10-37); CREATININE 1.2 mg/dL (0.5-1.3); GLOMERULAR FILTR. RATE CALC 71.0 mL/min (>90); GLUCOSE,RANDOM 90.0 mg/dL (70-105); PHOSPHORUS 2.5 mg/dL (2.5-4.9); SODIUM SERUM 138.0 mmol/L (136-145); TOTAL PROTEIN, SERUM 7.1 g/dL (6.0-8.3); UREA NITROGEN, BLOOD 12.0 mg/dL (7-18)
[2025-03-18 20:00] VITALS: BP 157/63; PULSE 90; RESP 20; TEMP 100.7
[2025-03-18] MEDS: VANCOMYCIN 2GM/500 ML BAG 500 ML IV ONE (20:26)
[2025-03-18] MEDS: 0.9%NACL 1000ML 1,000 ML IV SCH (20:26)
[2025-03-18] MEDS: FAMOTIDINE 20MG VIAL IV SCH (21:00)
[2025-03-19] VITALS (26 sets, daily range): BP systolic 110–136; BP diastolic 51–85; PULSE 78–89; RESP 16–19; TEMP 97.6–101.7; O2SAT 96–97
--- NOTE | 2025-03-19 06:26 | HMCIMG ---
EXAM: CR Chest, 1 View. CLINICAL HISTORY: pre procedural COMPARISON: None provided. FINDINGS: LUNGS: There is no mass, infiltrate, or acute pulmonary abnormality. Mild bibasilar atelectasis. PLEURAL SPACES: No pleural effusion or pneumothorax. MEDIASTINUM: Cardiomediastinal silhouette is mildly prominent. BONES: No aggressive appearing osseous lesion seen. IMPRESSION: 1. No acute cardiopulmonary findings. 2. Mildly prominent cardiomediastinal silhouette. /[place]
[2025-03-19 07:21] LABS: IMMATURE GRANULOCYTE ABSOLUTE 0.07 K/uL (0-1); NUCLEATED RED BLOOD CELLS 0.0 % (0.0-0.19); PLATELET COUNT (AUTO) 210 K/uL (130-400); RED BLOOD CELL COUNT(AUTO) 4.01 MIL/uL (4.50-6.20); RED CELL DISTRIBUTION WIDTH 12.2 % (11.0-15.5); WHITE BLOOD COUNT (AUTO) 14.8 K/uL (4.8-10.8)
[2025-03-19 07:32] LABS: CREATININE 1.2 mg/dL (0.5-1.3); GLOMERULAR FILTR. RATE CALC 71.0 mL/min (>90); GLUCOSE,RANDOM 112.0 mg/dL (70-105); SODIUM SERUM 139.0 mmol/L (136-145); UREA NITROGEN, BLOOD 10.0 mg/dL (7-18)
[2025-03-19] MEDS ORDERED: FAMOTIDINE 20MG VIAL IV SCH (09:00)
--- NOTE | 2025-03-19 09:03 | NUR ---
PHYSICIAN ROUNDING Dr. Elliott at bedside. New order for consent for Incision and Drainage, left under arm abscess
--- NOTE | 2025-03-19 09:25 | NUR ---
VANCOMYCIN PENDING DELIVERY Called pharmacistJese. Vancomycin not available in [facility]. Pharmacy will deliver dose. Will administer once received. Per pharmacist, no need to retime, may give within 2 hours of scheduled time.
[2025-03-19] MEDS: VANCOMYCIN 1.25 GM/250 ML BAG 250 ML IV SCH (09:34)
--- NOTE | 2025-03-19 09:57 | NUR ---
DCp; HOME Pr resides at his mobile home with ramp with common law Blanca Hung [phone]. Pt states they have been together 13+ years. 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 Pt uses no DME or in home care services. PCP is Fanny Zuniga and uses [facility] for rx needs. Pt denies dc needs and will return home with
[2025-03-19] MEDS ORDERED: LIDOCAINE PF 100MG/5ML (2%) SYRINGE 5ML ONE (10:54)
[2025-03-19] MEDS ORDERED: MIDAZOLAM HCL 1 MG/ML 2ML VIAL ONE (10:57)
[2025-03-19] MEDS ORDERED: PROMETHAZINE HCL 25 MG/ML 1ML AMPULE IM PRN (11:30)
[2025-03-19] MEDS ORDERED: LIDOCAINE HCL 1% 20 ML VIAL ONE (11:54)
[2025-03-19] MEDS: LIDOCAINE HCL 1% 20 ML VIAL INJ ONE (12:00)
--- NOTE | 2025-03-19 12:00 | NUR ---
PAIN ASSESSMENT, NURSING OBSERVATION Interventions not performed as patient is off unit for scheduled procedure Addendum: 03/19/25 at 1252 by LJ FLORES RN RN Amended: Links added.
--- NOTE | 2025-03-19 13:06 | CONS ---
GENERAL SURGERY CONSULTATION NOTE DATE OF CONSULTATION: Mar 19, 2025 TIME OF CONSULTATION: 13:06 CONSULTING SERVICE: Marino Lira MD REQUESTING PHYSICAIN: [ ] REASON FOR CONSULTATION: [ ] Pain and swelling chest wall HISTORY OF PRESENT ILLNESS: [ ] 54-year-old male who presented with painful swelling and redness chest wall Denied any trauma prior to onset of this Fever PAST MEDICAL HISTORY: [ ] Gout PAST SURGICAL HISTORY: [ ] None FAMILY HISTORY: [ ] Positive for diabetes in the mother SOCIAL HISTORY: [ ] Ex-smoker No alcohol Current Medications Medications (Trade) Dose Ordered Sig/Dino Route Start Time Stop Time Status Last Admin Dose Admin Cefepime HCl (MAXipime 1 GM vial) 1 gm Q8H IVPB 03/19/25 01:00 03/18/25 23:58 DC Cefepime HCl (MAXipime 1 GM vial) 1 gm Q8H IVPB 03/19/25 02:00 03/29/25 01:59 03/19/25 09:34 1 GM Cefepime HCl (MAXipime 1 GM vial) 1 gm Q8H IVPB 03/18/25 18:30 03/18/25 18:26 DC Famotidine (Pepcid 20mg Vial) 20 mg BID IV 03/18/25 21:00 04/17/25 20:59 03/19/25 09:33 20 MG Famotidine (Pepcid 20mg Vial) 20 mg DAILY IV 03/19/25 09:00 03/18/25 18:37 DC Lactated Ringer's 1,000 ml @ 75 mls/hr [id number] IV 03/18/25 18:30 03/18/25 18:51 DC Metronidazole/ Sodium Chloride 100 ml @ 100 mls/hr Q8H6 IVPB 03/19/25 01:00 03/29/25 00:59 03/19/25 00:57 100 MLS/HR Metronidazole/ Sodium Chloride 100 ml @ 100 mls/hr Q8H6 IVPB 03/18/25 23:00 03/18/25 23:57 DC Sodium Chloride 1,000 ml @ 100 mls/hr Q10H IV 03/18/25 18:30 04/17/25 18:29 03/18/25 20:26 100 MLS/HR Vancomycin HCl 250 ml @ 125 mls/hr Q12H IV 03/19/25 08:00 03/29/25 07:59 03/19/25 09:34 125 MLS/HR Vancomycin HCl (Vancomycin Protocol) 1 each AD IV 03/18/25 18:30 04/01/25 18:29 Allergies: Coded Allergies: No Known Allergies (Unverified Allergy, Unknown, 10/02/18) No Known Drug Allergies (Unverified Allergy, Unknown, 07/11/19) REVIEW OF SYSTEMS: ASSISTANT MANAGER: [Denies headaches or blurring of vision.] RESP: [No cough, chest pain or SOB.] CVS: [No palpitaions.] GI: [No abdominal pain with nausea and vomiting, no diarrhea or constipation.] Chest wall pain and swelling JARAD: [No dysuria or hematuria.] Musculoskeletal: [No swelling or joint pain.] BACK: [No pain or swelling.] All other systems are reviewed and essentially negative pertinent positives in HPI. PHYSICAL EXAMINATION: GENERAL: [Patient is lying comfortably in bed, not in any obvious distress.] HEAD: [Normal with no signs of head trauma.] EYES: [Not pale not jaundiced afebrile to touch.] ENT: [ Normal.] NECK: [Supple,no tenderness,no lymphadenopathy,no masses,no thyromegaly ,no bruits, no JVD.] LUNGS: [Clear breath sounds bilaterally. No wheezes, rales, or rhonchi.] Chest wall swelling erythema tender HEART: [Regular rate and rhythm. Normal S1 and S2, without murmurs, rub or gallop.] VASC: [No edema. Peripheral pulses normal and equal in all extremities.] ABD: [Obese benign.] : [Normal, no suprapubic tenderness.] LYMPH: [No lymphadenopathy noted.] EXT: [ Warm soft, non tender.] SKIN: [ No rashes or lesions.] NEURO: [ Awake Alert and oriented x3.] Vital Signs (last 8hr) Date Time Temp Pulse Resp B/P (MAP) Pulse Ox O2 Delivery O2 Flow Rate FiO2 03/19/25 12:58 83 16 113/72 94 Room Air 03/19/25 12:53 85 17 121/67 94 Room Air 03/19/25 12:48 85 18 122/67 95 Room Air 03/19/25 12:43 84 17 117/75 95 Room Air 03/19/25 12:38 89 16 114/68 95 Room Air 03/19/25 12:33 86 17 117/70 96 Room Air 03/19/25 12:28 85 18 127/67 98 Nonrebreathing Mask 10.0 03/19/25 12:23 84 17 124/63 98 Nonrebreathing Mask 10.0 03/19/25 12:18 98.1 87 16 110/68 98 Nonrebreathing Mask 10.0 03/19/25 08:03 98.8 84 18 131/72 97 Room Air LABORATORY: [ ] Hematology Labs: Test 03/19/25 06:12 Range/Units White Blood Count 14.8 H 4.8-10.8 K/uL Red Blood Count 4.01 L 4.50-6.20 MIL/uL Hemoglobin 12.8 L 14.0-18.0 g/dL Hematocrit 37.9 L 42-54 % Mean Corpuscular Volume 94.5 79-99 fL Mean Corpuscular Hemoglobin 31.9 27.0-33.0 pg Mean Corpuscular Hemoglobin Concent 33.8 32.0-36.0 g/dL Red Cell Distribution Width 12.2 11.0-15.5 % Platelet Count 210 130-400 K/uL Mean Platelet Volume 10.6 H 7.5-10.5 fL Immature Granulocyte % (Auto) 0.5 0-1 % Neutrophils (%) (Auto) 81.7 H 40.0-77.0 % Lymphocytes (%) (Auto) 9.4 L 21.0-51.0 % Monocytes (%) (Auto) 7.9 3.0-13.0 % Eosinophils (%) (Auto) 0.3 0.0-8.0 % Basophils (%) (Auto) 0.2 0.0-5.0 % Neutrophils # (Auto) 12.1 H 1.8-7.7 K/uL Lymphocytes # (Auto) 1.4 1.0-4.8 K/uL Monocytes # (Auto) 1.2 H 0.1-1.0 K/uL Eosinophils # (Auto) 0.04 0.00-0.70 K/uL Basophils # (Auto) 0.03 0.00-0.20 K/uL Absolute Immature Granulocyte (auto 0.07 0-1 K/uL Nucleated Red Blood Cells 0.0 0.0-0.19 % White Cell Morphology Comment See comments Chemistry Labs: Test 03/19/25 06:12 03/18/25 18:40 Range/Units Sodium Level 139 136-145 mmol/L Potassium Level 4.2 3.5-5.1 mmol/L Chloride Level 103 101-111 mmol/L Carbon Dioxide Level 29 21-32 mmol/L Blood Urea Nitrogen 10 7-18 mg/dL Creatinine 1.2 0.5-1.3 mg/dL Glomerular Filtration Rate Calc 71 >90 mL/min Random Glucose 112 H 70-105 mg/dL Total Calcium 8.2 L 8.5-10.1 mg/dL Hemoglobin A1c 5.8 4.0-6.0 % Estimated Average Glucose (eAG) 120 70-126 mg/dL Phosphorus Level 2.5 2.5-4.9 mg/dL Magnesium Level 1.80 1.80-2.40 mg/dL Total Bilirubin 1.3 H 0.2-1.0 mg/dL Aspartate Amino Transf (AST/SGOT) 12 10-37 U/L Alanine Aminotransferase (ALT/SGPT) 28 12-78 U/L Alkaline Phosphatase 84 50-136 U/L C-Reactive Protein, Quantitative 130.50 H 0.5-3.0 mg/L Total Protein 7.1 6.0-8.3 g/dL Albumin 2.8 L 3.5-5.0 g/dL Procalcitonin < 0.05 L 0.05-0.5 ng/mL Thyroid Stimulating Hormone (TSH) 1.05 0.36-3.74 uIU/mL DIAGNOSTICS / RADIOLOGY: [Copy/Paste Echos/Imaging Report here] ASSESSMENT: [] Chest wall cellulitis and abscess PLAN: [] NPO/IVF/IV ANTIOBIOTICS Schedule for OR We talked about various treatment options including but not limited to surgery. We talked about risks and benefits of surgery, patient verbalized understanding has agreed to proceed [ ]. We will schedule [ incision and drainage chest wall cellulitis and abscess]. MARINO LIRA MD Mar 19, 2025 13:06
--- NOTE | 2025-03-19 13:06 | PN ---
[facility] PROGRESS NOTE Date of Service: Mar 19, 2025 Time of Service: 12:57 SUBJECTIVE: [ Patient evaluated in PACU, status post incision and drainage (I&D) of left anterior chest wall abscess. He currently has no complaints. Reports adequate pain control and is tolerating pain management regimen. No new symptoms reported. ] Objective: Physical Exam: Chest wall: Post-I&D site on left anterior chest wall, no new erythema or drainage noted. No signs of acute distress. No evidence of systemic complications. Labs: WBC: Downtrending, now 14.8 (previously 15.4) Hgb/Hct: 12.8/37.9 Random glucose: 112 Total calcium: 8.2 Magnesium: 1.8 CRP: 130.50 on admission Albumin: 2.8 REVIEW OF SYSTEMS CONSTITUTIONAL: Denies fevers, chills, or night sweats. No unintentional weight loss reported. NEUROLOGICAL: Denies headache, amaurosis fugax, motor weakness, sensory deficit, vertigo/spinning sensation, gait abnormalities, or tremors. ENT: No hearing loss, otalgia, otorrhea, rhinitis, rhinorrhea, hoarseness, or sore throat. CARDIOVASCULAR: Denies any exertional angina, dyspnea on exertion, orthopnea, paroxysmal nocturnal dyspnea, palpitations, life-threatening arrhythmias, claudication. PULMONARY: Denies any shortness of breath, cough, phlegm/sputum, hemoptysis, p leuritic chest pain. GASTROINTESTINAL: Denies any type of dysphagia to either liquids or solids. Denies nausea, vomiting, pyrosis, early satiety, abdominal pain, diarrhea, constipation, or changes in stool consistency or caliber. Denies coffee-ground emesis, hematemesis, hematochezia, or melanotic stools. GENITOURINARY: Denies frequency, urgency, nocturia, hematuria or incontinence (Storage/Irritative symptoms.) Low urinary stream, straining to void, urinary intermittency or hesitancy, splitting of the voiding stream, terminal dribbling. ENDOCRINOLOGIC: Denies polyuria, polydipsia, polyphagia or heat/cold intolerances. HEMATOLOGIC: Denies thrombophilia/previous clots, or coagulopathy/bleeding disorders. ONCOLOGIC: Denies personal history of malignancy. DERMATOLOGIC: Positive Erythema and swelling on the left anterior chest wall area PSYCHIATRIC: Denies any suicidal or homicidal ideation. Denies hallucinations. PHYSICAL EXAM GENERAL APPEARANCE: The patient is awake, alert, and oriented, in no acute cardiopulmonary distress. NEUROLOGICAL: Cranial nerves II-XII grossly intact. Motor is 5/5 in bilateral upper and lower extremities proximal to distal. No sensory deficits. HEENT: Face is symmetric. Pupils are equal and reactive. Extraocular movements are intact. NECK: Supple. No JVD. No thyromegaly. No submental, submandibular, pre- /postauricular, occipital or supraclavicular lymphadenopathy. CHEST: Normal chest expansion. No Telemetry. On the left lateral anterior aspect of the chest wall. There is significant induration which is tender to palpation there is a small open wound which is not draining anything. There is associated erythema on the left chest wall area. No redness in the arm LUNGS: Absence of any rales, rhonchi or any wheezing. CARDIOVASCULAR: Regular. S1 and S2 normal. No appreciable rubs, murmurs or gallops. ABDOMEN: Soft, nontender, and nondistended. There is no rebound, voluntary guarding, or rigidity. : Deferred. No Berger. EXTREMITIES: Non-edematous and not cyanotic. No clubbing. Good capillary refill. SKIN: Erythema and induration on the left lateral anterior chest wall area Vital Signs (last 8hr) Date Time Temp Pulse Resp B/P (MAP) Pulse Ox O2 Delivery O2 Flow Rate FiO2 03/19/25 12:53 85 17 121/67 94 Room Air 03/19/25 12:48 85 18 122/67 95 Room Air 03/19/25 12:43 84 17 117/75 95 Room Air 03/19/25 12:38 89 16 114/68 95 Room Air 03/19/25 12:33 86 17 117/70 96 Room Air 03/19/25 12:28 85 18 127/67 98 Nonrebreathing Mask 10.0 03/19/25 12:23 84 17 124/63 98 Nonrebreathing Mask 10.0 03/19/25 12:18 98.1 87 16 110/68 98 Nonrebreathing Mask 10.0 03/19/25 08:03 98.8 84 18 131/72 97 Room Air LABS: Laboratory: Test 03/19/25 06:12 03/18/25 18:40 Range/Units White Blood Count 14.8 H 4.8-10.8 K/uL Red Blood Count 4.01 L 4.50-6.20 MIL/uL Hemoglobin 12.8 L 14.0-18.0 g/dL Hematocrit 37.9 L 42-54 % Mean Corpuscular Volume 94.5 79-99 fL Mean Corpuscular Hemoglobin 31.9 27.0-33.0 pg Mean Corpuscular Hemoglobin Concent 33.8 32.0-36.0 g/dL Red Cell Distribution Width 12.2 11.0-15.5 % Platelet Count 210 130-400 K/uL Mean Platelet Volume 10.6 H 7.5-10.5 fL Immature Granulocyte % (Auto) 0.5 0-1 % Neutrophils (%) (Auto) 81.7 H 40.0-77.0 % Lymphocytes (%) (Auto) 9.4 L 21.0-51.0 % Monocytes (%) (Auto) 7.9 3.0-13.0 % Eosinophils (%) (Auto) 0.3 0.0-8.0 % Basophils (%) (Auto) 0.2 0.0-5.0 % Neutrophils # (Auto) 12.1 H 1.8-7.7 K/uL Lymphocytes # (Auto) 1.4 1.0-4.8 K/uL Monocytes # (Auto) 1.2 H 0.1-1.0 K/uL Eosinophils # (Auto) 0.04 0.00-0.70 K/uL Basophils # (Auto) 0.03 0.00-0.20 K/uL Absolute Immature Granulocyte (auto 0.07 0-1 K/uL Nucleated Red Blood Cells 0.0 0.0-0.19 % White Cell Morphology Comment See comments Sodium Level 139 136-145 mmol/L Potassium Level 4.2 3.5-5.1 mmol/L Chloride Level 103 101-111 mmol/L Carbon Dioxide Level 29 21-32 mmol/L Blood Urea Nitrogen 10 7-18 mg/dL Creatinine 1.2 0.5-1.3 mg/dL Glomerular Filtration Rate Calc 71 >90 mL/min Random Glucose 112 H 70-105 mg/dL Total Calcium 8.2 L 8.5-10.1 mg/dL Hemoglobin A1c 5.8 4.0-6.0 % Estimated Average Glucose (eAG) 120 70-126 mg/dL Phosphorus Level 2.5 2.5-4.9 mg/dL Magnesium Level 1.80 1.80-2.40 mg/dL Total Bilirubin 1.3 H 0.2-1.0 mg/dL Aspartate Amino Transf (AST/SGOT) 12 10-37 U/L Alanine Aminotransferase (ALT/SGPT) 28 12-78 U/L Alkaline Phosphatase 84 50-136 U/L C-Reactive Protein, Quantitative 130.50 H 0.5-3.0 mg/L Total Protein 7.1 6.0-8.3 g/dL Albumin 2.8 L 3.5-5.0 g/dL Procalcitonin < 0.05 L 0.05-0.5 ng/mL Thyroid Stimulating Hormone (TSH) 1.05 0.36-3.74 uIU/mL Current Medications Medications (Trade) Dose Ordered Sig/Dino Route PRN Reason Start Time Stop Time Status Last Admin Dose Admin Cefepime HCl (MAXipime 1 GM vial) 1 gm Q8H IVPB 03/19/25 01:00 03/18/25 23:58 DC Cefepime HCl (MAXipime 1 GM vial) 1 gm Q8H IVPB 03/19/25 02:00 03/29/25 01:59 03/19/25 09:34 1 GM Cefepime HCl (MAXipime 1 GM vial) 1 gm Q8H IVPB 03/18/25 18:30 03/18/25 18:26 DC Famotidine (Pepcid 20mg Vial) 20 mg BID IV 03/18/25 21:00 04/17/25 20:59 03/19/25 09:33 20 MG Famotidine (Pepcid 20mg Vial) 20 mg DAILY IV 03/19/25 09:00 03/18/25 18:37 DC Fentanyl Citrate (FENTanyl CITRate PF 50 MCG/ 1 ML 2ML VIAL) 25 mcg Q5MIN PRN IVP PAIN LEVEL 7 TO 10 03/19/25 11:30 Hydralazine HCl (APRESOLine 20MG INJ) 10 mg Q6H PRN IV For:SBP above 160;DBP above 90 03/18/25 18:30 04/17/25 18:29 Ketorolac Tromethamine (toRADol) 15 mg Q6H PRN IV MODERATE PAIN (4-6) 03/18/25 18:30 03/23/25 18:29 03/18/25 20:56 15 MG Ketorolac Tromethamine (toRADol) 30 mg AD PRN IV PAIN LEVEL 1 TO 3 03/19/25 11:30 Lactated Ringer's 1,000 ml @ 75 mls/hr [id number] IV 03/18/25 18:30 03/18/25 18:51 DC Metoclopramide HCl (regLAN 10MG IV) 10 mg AD PRN IVP NAUSEA/VOMITING 03/19/25 11:30 Metronidazole/ Sodium Chloride 100 ml @ 100 mls/hr Q8H6 IVPB 03/19/25 01:00 03/29/25 00:59 03/19/25 00:57 100 MLS/HR Metronidazole/ Sodium Chloride 100 ml @ 100 mls/hr Q8H6 IVPB 03/18/25 23:00 03/18/25 23:57 DC Morphine Sulfate (morPHINE 2MG SYG) 2 mg AD PRN IVP PAIN LEVEL 4 TO 6 03/19/25 11:30 Morphine Sulfate (morPHINE 2MG SYG) 2 mg Q4H PRN IVP SEVERE PAIN (7-10) 03/18/25 18:30 03/25/25 18:29 Morphine Sulfate (morPHINE 4MG SYG) 4 mg Q4H PRN IVP SEVERE PAIN (7-10) 03/18/25 18:30 03/18/25 18:37 DC Naloxone HCl (NARcan 0.4mg/1 mL) 0.1 mg AD PRN IVP RESPIRATORY SYMPTOMS 03/19/25 11:30 04/18/25 11:29 Ondansetron HCl (zoFRAN 4MG INJ) 4 mg AD PRN IVP NAUSEA/VOMITING 03/19/25 11:30 Ondansetron HCl (zoFRAN 4MG INJ) 4 mg Q6H PRN IV NAUSEA/VOMITING 03/18/25 18:30 04/17/25 18:29 Promethazine HCl (Phenergan) 25 mg AD PRN IM NAUSEA/VOMITING 03/19/25 11:30 Sodium Chloride 1,000 ml @ 100 mls/hr Q10H IV 03/18/25 18:30 04/17/25 18:29 03/18/25 20:26 100 MLS/HR Vancomycin HCl 250 ml @ 125 mls/hr Q12H IV 03/19/25 08:00 03/29/25 07:59 03/19/25 09:34 125 MLS/HR Vancomycin HCl (Vancomycin Protocol) 1 each AD IV 03/18/25 18:30 04/01/25 18:29 DIAGNOSTICS / RADIOLOGY: [ ] ASSESSMENT: Status post I&D of left anterior chest wall abscess, secondary to cellulitis. Sepsis, improving. Leukocytosis, downtrending. Obesity (BMI 41.4). Hypoalbuminemia PLAN: Continue current IV antibiotics (vancomycin, cefepime, metronidazole). Continue pain management as tolerated. Monitor wound site for signs of recurrent infection or drainage. Repeat CBC, CMP, CRP as indicated. Infectious Disease consultation to be obtained. Monitor for clinical improvement and adjust management as needed. Continue to monitor hemodynamic status and laboratory trends. Advance care planning previously discussed; no new updates at this time. ATTESTATION BY PHYSICIAN I have seen and examined the patient. I reviewed the documentation, medical decision making, and treatment plan as noted by the mid-level provider above. I agree with the findings and plan of care. RUBIN ORONA MD, JANICE B AGACNP Mar 19, 2025 13:06
--- NOTE | 2025-03-19 17:00 | NUR ---
NURSING NOTE Patient had scheduled procedure, I & D of left chest wall abscess performed today by Dr. Durand. Returned to unit with dressing in place, clean dry and intact. Wound care: 2" iodoform packing, cover with gauze, abd pad, medipore tape. Wound care consult for wound care to initiate tomorrow, 03/20/25. Nurse, Vanessa with Dr. Meir Marshall present on unit today and notified. She will evaluate patient tomorrow. Patient has had no complaints of pain status post procedure. Continues with SCDs to bilateral lower extremity. Ambulates to restroom. Has voided within appropriated timeframe. Infectious disease consult. Bernice Diana visited patient at bedside. Aerobic and anaerobic cultures obtained during surgical procedure, pending results.
--- NOTE | 2025-03-19 17:23 | CONS ---
INFECTIOUS DISEASE CONSULTATION NOTE Date of Service: Mar 19, 2025 Reason for Consultation: Chest wall cellulitis and Abscess. Requesting Physician: Katherine Simpson NP. HISTORY OF PRESENT ILLNESS: This is a 54-year-old male patient with current medical history of gout and obesity who presented to the emergency room for chief complaint of left lateral chest wall erythema, pain and swelling which patient first noticed it on Wednesday. Yesterday however patient stated that the redness was spreading and he started with a stabbing pain on the chest wall and he [facility]. There he was found with a fever of 101.9, an ultrasound was obtained which showed concern for possible early abscess versus infected sebaceous cyst. Patient denying experiencing fevers at home, he did reported experiencing chills and nausea yesterday. Denied any previous history o f similar abscess. Patient was evaluated by General surgery and underwent an incision and drainage of the abscess on the left side of the chest today. Patient has been started on vancomycin, cefepime and metronidazole. We will continue current antibiotics and follow up on the intraoperative wound cultures. REVIEW OF SYSTEMS CONSTITUTIONAL: Denies fever, chills, or fatigue. HEAD/FACE: No signs of trauma. EENT: Denies eye pain, blurred vision, double vision, or light sensitivity. RESPIRATORY: Denies shortness of breath, cough, wheezing. CARDIOVASCULAR: Denies chest pain, palpitation, syncope GASTROINTESTINAL/ABDOMINAL: Denies abdominal pain, constipation, diarrhea, nausea or vomiting. GENITOURINARY: Denies dysuria or hematuria. MUSCULOSKELETAL: Denies joint pain, tenderness, or trauma. INTEGUMENTARY: Denies rash or itchiness. Swelling, pain and redness on the left lateral chest area. NEUROLOGICAL/PSYCH: Denies anxiety, depression, heat or cold intolerance. PAST MEDICAL HISTORY: Gout. Obesity. Former smoker, quit 30 years ago. PAST SURGICAL HISTORY: Skull laceration on the right side requiring sutures at age [age]. PAST SOCIAL HISTORY: Quit smoking 30 years ago, drinks two cups of wine approximately twice a month. Denied current use of illicit drug. FAMILY HISTORY: Mother is diabetic. Coded Allergies: No Known Allergies (Unverified Allergy, Unknown, 10/02/18) No Known Drug Allergies (Unverified Allergy, Unknown, 07/11/19) PHYSICAL EXAM EYES: Anicteric. Pupils equal and reactive. HENT: No oral thrush seen, moist Oral mucosa. NECK: Supple, no JVD or thyromegaly. LUNGS: Good air entry. No rales, no rhonchi. CHEST: Abscess on left lateral side of the chest, status post I&D. CARDIOVASCULAR: S1, S2 regular. No murmur heard. ABDOMEN: Soft, non tender, bowel sounds present. CENTRAL NERVOUS SYSTEM: Awake, alert, oriented x 3. SKIN: No rashes, no swelling. LYMPHATICS: No peripheral lymphadenopathy. MUSCULOSKELETAL: No joint swelling, erythema or tenderness. EXTREMITIES: No cyanosis or clubbing. BACK: No deformity, no pressure ulcer. GENITOURINARY: No dysuria or hematuria. Vital Sign (Last 24 Hours) 03/19/25 03/19/25 03/19/25 03/19/25 01:45 12:28 13:03 15:15 Temp 97.5 Pulse 78 Resp 17 B/P (MAP) 120/68 Pulse Ox 96 O2 Delivery Room Air O2 Flow Rate 10.0 FiO2 21 Intake & Output (last 24hrs) 03/18/25 03/18/25 03/19/25 15:00 23:00 07:00 Intake Total 1600.0 ml Balance 1600.0 ml LABS: Laboratory: Test 03/19/25 06:12 03/18/25 18:40 Range/Units White Blood Count 14.8 H 4.8-10.8 K/uL Red Blood Count 4.01 L 4.50-6.20 MIL/uL Hemoglobin 12.8 L 14.0-18.0 g/dL Hematocrit 37.9 L 42-54 % Mean Corpuscular Volume 94.5 79-99 fL Mean Corpuscular Hemoglobin 31.9 27.0-33.0 pg Mean Corpuscular Hemoglobin Concent 33.8 32.0-36.0 g/dL Red Cell Distribution Width 12.2 11.0-15.5 % Platelet Count 210 130-400 K/uL Mean Platelet Volume 10.6 H 7.5-10.5 fL Immature Granulocyte % (Auto) 0.5 0-1 % Neutrophils (%) (Auto) 81.7 H 40.0-77.0 % Lymphocytes (%) (Auto) 9.4 L 21.0-51.0 % Monocytes (%) (Auto) 7.9 3.0-13.0 % Eosinophils (%) (Auto) 0.3 0.0-8.0 % Basophils (%) (Auto) 0.2 0.0-5.0 % Neutrophils # (Auto) 12.1 H 1.8-7.7 K/uL Lymphocytes # (Auto) 1.4 1.0-4.8 K/uL Monocytes # (Auto) 1.2 H 0.1-1.0 K/uL Eosinophils # (Auto) 0.04 0.00-0.70 K/uL Basophils # (Auto) 0.03 0.00-0.20 K/uL Absolute Immature Granulocyte (auto 0.07 0-1 K/uL Nucleated Red Blood Cells 0.0 0.0-0.19 % White Cell Morphology Comment See comments Sodium Level 139 136-145 mmol/L Potassium Level 4.2 3.5-5.1 mmol/L Chloride Level 103 101-111 mmol/L Carbon Dioxide Level 29 21-32 mmol/L Blood Urea Nitrogen 10 7-18 mg/dL Creatinine 1.2 0.5-1.3 mg/dL Glomerular Filtration Rate Calc 71 >90 mL/min Random Glucose 112 H 70-105 mg/dL Total Calcium 8.2 L 8.5-10.1 mg/dL Hemoglobin A1c 5.8 4.0-6.0 % Estimated Average Glucose (eAG) 120 70-126 mg/dL Phosphorus Level 2.5 2.5-4.9 mg/dL Magnesium Level 1.80 1.80-2.40 mg/dL Total Bilirubin 1.3 H 0.2-1.0 mg/dL Aspartate Amino Transf (AST/SGOT) 12 10-37 U/L Alanine Aminotransferase (ALT/SGPT) 28 12-78 U/L Alkaline Phosphatase 84 50-136 U/L C-Reactive Protein, Quantitative 130.50 H 0.5-3.0 mg/L Total Protein 7.1 6.0-8.3 g/dL Albumin 2.8 L 3.5-5.0 g/dL Procalcitonin < 0.05 L 0.05-0.5 ng/mL Thyroid Stimulating Hormone (TSH) 1.05 0.36-3.74 uIU/mL ASSESSMENT: Left lateral chest wall abscess, s/p incision and drainage. Chest wall Cellulitis. Leukocytosis. Former smoker. Gout. Morbid Obesity. PLAN: Continue vancomycin per pharmacy protocol. Continue cefepime. Continue metronidazole. Continue GI prophylaxis. We will follow up on the culture results. Continue pain management. Thank you for allowing ID to participate in the care of this patient. This case was reviewed and discussed with my supervising physician Dr. Gomez and the above assessment and plan was formulated and agreed upon. ATTESTATION BY PHYSICIAN I have seen and examined the patient. I reviewed the documentation, medical decision making, and treatment plan as noted by the mid-level provider above. I agree with the findings and plan of care. ABDIRAHMAN GOMEZ MD, [facility] Mar 19, 2025 17:23
[2025-03-20] VITALS (7 sets, daily range): BP systolic 124–136; BP diastolic 60–85; PULSE 69–83; RESP 18–19; TEMP 97.9–98.3; O2SAT 96–97
[2025-03-20 07:42] LABS: NUCLEATED RED BLOOD CELLS 0.0 % (0.0-0.19); PLATELET COUNT (AUTO) 215.0 K/uL (130-400); RED BLOOD CELL COUNT(AUTO) 3.83 MIL/uL (4.50-6.20); RED CELL DISTRIBUTION WIDTH 12.0 % (11.0-15.5); WHITE BLOOD COUNT (AUTO) 13.8 K/uL (4.8-10.8)
[2025-03-20 08:27] LABS: ASPARTATE AMINOTRANSFERASE 14.0 U/L (10-37); CREATININE 1.0 mg/dL (0.5-1.3); GLOMERULAR FILTR. RATE CALC 88.0 mL/min (>90); GLUCOSE,RANDOM 129.0 mg/dL (70-105); SODIUM SERUM 141.0 mmol/L (136-145); TOTAL PROTEIN, SERUM 5.8 g/dL (6.0-8.3); UREA NITROGEN, BLOOD 11.0 mg/dL (7-18)
--- NOTE | 2025-03-20 13:25 | NUR ---
CHANGE IN CONDITION: LEFT FOREARM WITH RED, SWOLLEN AREA (APRROXIMATELY 2" X 1 1/2") DISTAL FROM ANTECUBITAL Patient reports that this originated last night. Right hand is edematous. Radial pulses strong. Capillary refill within normal limits. Patient unable to fully close fingers to make a fist. Reports pain at wrist with flexion/extenion of wrist joint. Primary team notified.
--- NOTE | 2025-03-20 14:10 | NUR ---
INFECTIOUS DISEASE ROUNDING Dr. Pendleton at bedside. Patient with blood cultures negative (24 hours). Wound cultures with gram + cocci clusters. Patient will continue on Maxipime and Vancomycin. Flagyl has been discontinued. Pending final results of wound ID & sensitivity.
--- NOTE | 2025-03-20 14:10 | NUR ---
[facility] Consult: Patient assessed by wound healing team. See wound assessment. Assessment and recommendations provided to primary nurse. Education provided to patient r/t to wound and wound management. Wound care done.
--- NOTE | 2025-03-20 14:15 | NUR ---
WOUND CARE CONSULT Wound care nurse, Vanessa at bedside. Wound care performed as ordered. Iodoform packing, 4 x 4 gauze, cover with abd, secure with Medipore tape. Wound care nurse may consider placement of wound vac to expedite healing. Will continue with current order in place, until further notified/order changed. Patient tolerated procedure. Morphine prn administered for acute wound dressing change, pain.
--- NOTE | 2025-03-20 14:38 | NUR ---
VENOUS DOPPLER, RIGHT UPPER EXTREMITY New order received for venous doppler to right arm. Indication: Rule out DVT. Patient aware.
--- NOTE | 2025-03-20 16:22 | PN ---
[facility] PROGRESS NOTE Date of Service: Mar 20, 2025 Time of Service: 16:[address] [place] SUBJECTIVE: 03/18/25 54-year-old male with no significant past medical history presented to the hospital secondary to pain in the left lateral aspect of the chest wall. The patient states around two days ago he noted a small induration on the left anterior lateral aspect of the chest wall. The area was getting progressively indurated with increasing pain with movement of the shoulder and chest. He noted redness on the chest area. Denied any drainage from the area. Denied any insect bites, any cuts, scrapes to the chest wall. Patient is unsure if he had a rash present. Denied any chest pain, abdominal pain, nausea, vomiting. He noted he was having fevers today. Denied any nausea, vomiting. He currently does not take any medications at home. Denied any previous history of skin abscess. Patient thereafter went to [facility] for further evaluation. Patient was transferred from [facility] to [facility] due to concern for chest wall cellulitis with associated abscess. Labs in [facility] ER showed white count of 15.1, hemoglobin was 13.9, platelet count was 226 K, sodium was 134, potassium was 4.5, chloride was 107, bicarb was 31 , blood glucose was 114 Patient underwent a ultrasound which showed a two subcutaneous lesions with echogenic center and anechoic rims. This was concerning for possible early abscess versus infected sebaceous cyst. 03/19/25 Patient evaluated in PACU, status post incision and drainage (I&D) of left anterior chest wall abscess. He currently has no complaints. Reports adequate pain control and is tolerating pain management regimen. No new symptoms reported. 03/20/25 patient was seen by nurse practitioner and physician during rounding in room 427. Patient is s/p I and D with Dr. Wen on 03/19/2025. Patient continues to be on Flagyl cefepime and vancomycin. ID consulted for IV antibiotic treatment. Cultures growing Gram-positive cocci. Patient is complaining of the right wrist swelling. Right wrist x-ray and right wrist ultrasound Doppler was ordered. We will continue to monitor patient in the meantime. A.m. labs. REVIEW OF SYSTEMS CONSTITUTIONAL: Denies fevers, chills, or night sweats. No unintentional weight loss reported. NEUROLOGICAL: Denies headache, amaurosis fugax, motor weakness, sensory deficit, vertigo/spinning sensation, gait abnormalities, or tremors. ENT: No hearing loss, otalgia, otorrhea, rhinitis, rhinorrhea, hoarseness, or sore throat. CARDIOVASCULAR: Denies any exertional angina, dyspnea on exertion, orthopnea, paroxysmal nocturnal dyspnea, palpitations, life-threatening arrhythmias, claudication. PULMONARY: Denies any shortness of breath, cough, phlegm/sputum, hemoptysis, pleuritic chest pain. GASTROINTESTINAL: Denies any type of dysphagia to either liquids or solids. Denies nausea, vomiting, pyrosis, early satiety, abdominal pain, diarrhea, constipation, or changes in stool consistency or caliber. Denies coffee-ground emesis, hematemesis, hematochezia, or melanotic stools. GENITOURINARY: Denies frequency, urgency, nocturia, hematuria or incontinence (Storage/Irritative symptoms.) Low urinary stream, straining to void, urinary intermittency or hesitancy, splitting of the voiding stream, terminal dribbling. ENDOCRINOLOGIC: Denies polyuria, polydipsia, polyphagia or heat/cold intolerances. HEMATOLOGIC: Denies thrombophilia/previous clots, or coagulopathy/bleeding disorders. ONCOLOGIC: Denies personal history of malignancy. DERMATOLOGIC: Positive Erythema and swelling on the left anterior chest wall area PSYCHIATRIC: Denies any suicidal or homicidal ideation. Denies hallucinations. PHYSICAL EXAM GENERAL APPEARANCE: The patient is awake, alert, and oriented, in no acute cardiopulmonary distress. NEUROLOGICAL: Cranial nerves II-XII grossly intact. Motor is 5/5 in bilateral upper and lower extremities proximal to distal. No sensory deficits. HEENT: Face is symmetric. Pupils are equal and reactive. Extraocular movements are intact. NECK: Supple. No JVD. No thyromegaly. No submental, submandibular, pre- /postauricular, occipital or supraclavicular lymphadenopathy. CHEST: Normal chest expansion. No Telemetry. On the left lateral anterior aspect of the chest wall. There is significant induration which is tender to palpation there is a small open wound which is not draining anything. There is associated erythema on the left chest wall area. No redness in the arm LUNGS: Absence of any rales, rhonchi or any wheezing. CARDIOVASCULAR: Regular. S1 and S2 normal. No appreciable rubs, murmurs or gallops. ABDOMEN: Soft, nontender, and nondistended. There is no rebound, voluntary guarding, or rigidity. : Deferred. No Berger. EXTREMITIES: Non-edematous and not cyanotic. No clubbing. Good capillary refill. SKIN: Erythema and induration on the left lateral anterior chest wall area Vital Signs (last 8hr) Date Time Temp Pulse Resp B/P (MAP) Pulse Ox O2 Delivery O2 Flow Rate FiO2 03/20/25 12:12 98.2 72 18 128/79 97 Room Air 03/20/25 08:20 97.9 72 19 128/85 98 Room Air LABS: Laboratory: Test 03/20/25 07:31 03/19/25 06:12 03/18/25 18:40 Range/Units White Blood Count 13.8 H 4.8-10.8 K/uL Red Blood Count 3.83 L 4.50-6.20 MIL/uL Hemoglobin 12.2 L 14.0-18.0 g/dL Hematocrit 35.7 L 42-54 % Mean Corpuscular Volume 93.2 79-99 fL Mean Corpuscular Hemoglobin 31.9 27.0-33.0 pg Mean Corpuscular Hemoglobin Concent 34.2 32.0-36.0 g/dL Red Cell Distribution Width 12.0 11.0-15.5 % Platelet Count 215 130-400 K/uL Mean Platelet Volume 10.5 7.5-10.5 fL Nucleated Red Blood Cells 0.0 0.0-0.19 % Sodium Level 141 136-145 mmol/L Potassium Level 4.0 3.5-5.1 mmol/L Chloride Level 107 101-111 mmol/L Carbon Dioxide Level 29 21-32 mmol/L Blood Urea Nitrogen 11 7-18 mg/dL Creatinine 1.0 0.5-1.3 mg/dL Glomerular Filtration Rate Calc 88 >90 mL/min Random Glucose 129 H 70-105 mg/dL Total Calcium 8.1 L 8.5-10.1 mg/dL Magnesium Level 2.10 1.80-2.40 mg/dL Total Bilirubin 0.4 0.2-1.0 mg/dL Aspartate Amino Transf (AST/SGOT) 14 10-37 U/L Alanine Aminotransferase (ALT/SGPT) 25 12-78 U/L Alkaline Phosphatase 78 50-136 U/L Total Protein 5.8 L 6.0-8.3 g/dL Albumin 2.4 L 3.5-5.0 g/dL Vancomycin Level Trough 9.2 L 10.0-20.0 UG/ML Immature Granulocyte % (Auto) 0.5 0-1 % Neutrophils (%) (Auto) 81.7 H 40.0-77.0 % Lymphocytes (%) (Auto) 9.4 L 21.0-51.0 % Monocytes (%) (Auto) 7.9 3.0-13.0 % Eosinophils (%) (Auto) 0.3 0.0-8.0 % Basophils (%) (Auto) 0.2 0.0-5.0 % Neutrophils # (Auto) 12.1 H 1.8-7.7 K/uL Lymphocytes # (Auto) 1.4 1.0-4.8 K/uL Monocytes # (Auto) 1.2 H 0.1-1.0 K/uL Eosinophils # (Auto) 0.04 0.00-0.70 K/uL Basophils # (Auto) 0.03 0.00-0.20 K/uL Absolute Immature Granulocyte (auto 0.07 0-1 K/uL White Cell Morphology Comment See comments Hemoglobin A1c 5.8 4.0-6.0 % Estimated Average Glucose (eAG) 120 70-126 mg/dL Phosphorus Level 2.5 2.5-4.9 mg/dL C-Reactive Protein, Quantitative 130.50 H 0.5-3.0 mg/L Procalcitonin < 0.05 L 0.05-0.5 ng/mL Thyroid Stimulating Hormone (TSH) 1.05 0.36-3.74 uIU/mL Current Medications Medications (Trade) Dose Ordered Sig/Dino Route PRN Reason Start Time Stop Time Status Last Admin Dose Admin Cefepime HCl (MAXipime 1 GM vial) 1 gm Q8H IVPB 03/19/25 01:00 03/18/25 23:58 DC Cefepime HCl (MAXipime 1 GM vial) 1 gm Q8H IVPB 03/19/25 02:00 03/29/25 01:59 03/20/25 10:05 1 GM Cefepime HCl (MAXipime 1 GM vial) 1 gm Q8H IVPB 03/18/25 18:30 03/18/25 18:26 DC Enoxaparin Sodium (Lovenox) 40 mg DAILY SQ 03/21/25 09:00 04/20/25 08:59 Famotidine (Pepcid 20mg Vial) 20 mg BID IV 03/18/25 21:00 04/17/25 20:59 03/20/25 10:05 20 MG Famotidine (Pepcid 20mg Vial) 20 mg DAILY IV 03/19/25 09:00 03/18/25 18:37 DC Fentanyl Citrate (FENTanyl CITRate PF 50 MCG/ 1 ML 2ML VIAL) 25 mcg Q5MIN PRN IVP PAIN LEVEL 7 TO 10 03/19/25 11:30 03/20/25 03:07 DC Hydralazine HCl (APRESOLine 20MG INJ) 10 mg Q6H PRN IV For:SBP above 160;DBP above 90 03/18/25 18:30 04/17/25 18:29 Hydromorphone HCl (DiLAUDid 1MG INJ) 1 mg Q4H PRN IVP SEVERE PAIN (7-10) 03/20/25 03:00 03/25/25 02:59 03/20/25 14:15 1 MG Ketorolac Tromethamine (toRADol) 15 mg Q6H PRN IV MILD PAIN (1-3) 03/18/25 18:30 03/23/25 18:29 03/18/25 20:56 15 MG Ketorolac Tromethamine (toRADol) 30 mg AD PRN IV MODERATE PAIN (4-6) 03/19/25 11:30 03/20/25 08:26 DC Lactated Ringer's 1,000 ml @ 75 mls/hr [id number] IV 03/18/25 18:30 03/18/25 18:51 DC Metoclopramide HCl (regLAN 10MG IV) 10 mg AD PRN IVP NAUSEA/VOMITING 03/19/25 11:30 03/20/25 08:26 DC Metronidazole/ Sodium Chloride 100 ml @ 100 mls/hr Q8H6 IVPB 03/19/25 01:00 03/19/25 22:05 DC 03/19/25 18:32 100 MLS/HR Metronidazole/ Sodium Chloride 100 ml @ 100 mls/hr Q8H6 IVPB 03/20/25 02:30 03/30/25 02:29 03/20/25 06:34 100 MLS/HR Metronidazole/ Sodium Chloride 100 ml @ 100 mls/hr Q8H6 IVPB 03/18/25 23:00 03/18/25 23:57 DC Morphine Sulfate (morPHINE 2MG SYG) 2 mg AD PRN IVP PAIN LEVEL 4 TO 6 03/19/25 11:30 03/20/25 03:05 DC Morphine Sulfate (morPHINE 2MG SYG) 2 mg Q4H PRN IVP SEVERE PAIN (7-10) 03/18/25 18:30 03/20/25 03:06 DC Morphine Sulfate (morPHINE 4MG SYG) 4 mg Q4H PRN IVP SEVERE PAIN (7-10) 03/18/25 18:30 03/18/25 18:37 DC Naloxone HCl (NARcan 0.4mg/1 mL) 0.1 mg AD PRN IVP RESPIRATORY SYMPTOMS 03/19/25 11:30 03/20/25 08:26 DC Ondansetron HCl (zoFRAN 4MG INJ) 4 mg AD PRN IVP NAUSEA/VOMITING 03/19/25 11:30 03/20/25 08:26 DC Ondansetron HCl (zoFRAN 4MG INJ) 4 mg Q6H PRN IV NAUSEA/VOMITING 03/18/25 18:30 04/17/25 18:29 Oxycodone/ Acetaminophen (perCOCET) 1 tab Q4H PRN PO SEVERE PAIN (7-10) 03/20/25 03:00 03/27/25 02:59 Promethazine HCl (Phenergan) 25 mg AD PRN IM NAUSEA/VOMITING 03/19/25 11:30 03/20/25 08:26 DC Sodium Chloride 1,000 ml @ 100 mls/hr Q10H IV 03/18/25 18:30 04/17/25 18:29 03/20/25 02:06 100 MLS/HR Vancomycin HCl 250 ml @ 125 mls/hr Q12H IV 03/19/25 08:00 03/29/25 07:59 03/20/25 10:05 125 MLS/HR Vancomycin HCl (Vancomycin Protocol) 1 each AD IV 03/18/25 18:30 04/01/25 18:29 DIAGNOSTICS / RADIOLOGY: [ ] ASSESSMENT: Status post I&D of left anterior chest wall abscess, secondary to cellulitis. Sepsis, improving. Leukocytosis, downtrending. Obesity (BMI 41.4). Hypoalbuminemia PLAN: Patient is s/p I and D with Dr. Wen on 03/19/2025. Patient continues to be on Flagyl cefepime and vancomycin. ID consulted for IV antibiotic treatment. Cultures growing Gram-positive cocci. Patient is complaining of the right wrist swelling. Right wrist x-ray and right wrist ultrasound Doppler was ordered. We will continue to monitor patient in the meantime. A.m. labs. Continue pain management as tolerated. Monitor wound site for signs of recurrent infection or drainage. Infectious Disease consultated Monitor for clinical improvement and adjust management as needed. Continue to monitor hemodynamic status and laboratory trends. Advance care planning previously discussed; no new updates at this time. ATTESTATION BY PHYSICIAN I have seen and examined the patient. I reviewed the documentation, medical decision making, and treatment plan as noted by the mid-level provider above. I agree with the findings and plan of care. RUBIN ORONA MD, [facility] Mar 20, 2025 16:22
--- NOTE | 2025-03-20 19:05 | PN ---
INFECTIOUS DISEASE PROGRESS NOTE Date of Service: Mar 20, 2025 SUBJECTIVE: This is a 54-year-old male patient who is status post incision and drainage of the left lateral chest wall abscess day #1. During visit today the wound care team was evaluating patient and the wound is packed with packing gauze. No fever reported this morning, latest temperature is 98.2 and the WBC has trended down to 13.8. Patient continues on vancomycin, cefepime and metronidazole. We will discontinue metronidazole. Swelling present to the right upper extremity. We will obtain a venous Doppler to rule out DVT. PHYSICAL EXAM EYES: Anicteric. Pupils equal and reactive. HENT: No oral thrush seen, moist Oral mucosa NECK: Supple, no JVD or thyromegaly. LUNGS: Good air entry. No rales, no rhonchi. CHEST: Left chest wall Abscess/ s/p I/D. CARDIOVASCULAR: S1, S2 regular. No murmur heard. ABDOMEN: Soft, non tender, bowel sounds present. Obese. CENTRAL NERVOUS SYSTEM: Awake, alert, oriented x 3. SKIN: No rashes, no swelling. LYMPHATICS: No peripheral lymphadenopathy. MUSCULOSKELETAL: No joint swelling, erythema or tenderness. EXTREMITIES: No cyanosis or clubbing. Right upper extremity swelling. BACK: No deformity, no pressure ulcer. GENITOURINARY: No dysuria or hematuria. Vital Sign (Last 12 Hours) 03/20/25 03/20/25 03/20/25 03/20/25 08:00 08:00 08:20 12:12 Temp 97.9 98.2 Pulse 72 72 Resp 19 18 B/P (MAP) 128/85 128/79 Pulse Ox 96 97 98 97 O2 Delivery Room Air* Room Air* Room Air Room Air O2 Flow Rate 0 0 FiO2 21 21 03/20/25 16:24 Temp 97.9 Pulse 83 Resp 19 B/P (MAP) 136/74 Pulse Ox 97 O2 Delivery Room Air Intake & Output (last 24hrs) 03/19/25 03/19/25 03/20/25 15:00 23:00 07:00 Intake Total 0 ml 500 ml 1100.0 ml Balance 0 ml 500 ml 1100.0 ml LABS: Laboratory: Test 03/20/25 07:31 03/19/25 06:12 Range/Units White Blood Count 13.8 H 4.8-10.8 K/uL Red Blood Count 3.83 L 4.50-6.20 MIL/uL Hemoglobin 12.2 L 14.0-18.0 g/dL Hematocrit 35.7 L 42-54 % Mean Corpuscular Volume 93.2 79-99 fL Mean Corpuscular Hemoglobin 31.9 27.0-33.0 pg Mean Corpuscular Hemoglobin Concent 34.2 32.0-36.0 g/dL Red Cell Distribution Width 12.0 11.0-15.5 % Platelet Count 215 130-400 K/uL Mean Platelet Volume 10.5 7.5-10.5 fL Nucleated Red Blood Cells 0.0 0.0-0.19 % Sodium Level 141 136-145 mmol/L Potassium Level 4.0 3.5-5.1 mmol/L Chloride Level 107 101-111 mmol/L Carbon Dioxide Level 29 21-32 mmol/L Blood Urea Nitrogen 11 7-18 mg/dL Creatinine 1.0 0.5-1.3 mg/dL Glomerular Filtration Rate Calc 88 >90 mL/min Random Glucose 129 H 70-105 mg/dL Total Calcium 8.1 L 8.5-10.1 mg/dL Magnesium Level 2.10 1.80-2.40 mg/dL Total Bilirubin 0.4 0.2-1.0 mg/dL Aspartate Amino Transf (AST/SGOT) 14 10-37 U/L Alanine Aminotransferase (ALT/SGPT) 25 12-78 U/L Alkaline Phosphatase 78 50-136 U/L Total Protein 5.8 L 6.0-8.3 g/dL Albumin 2.4 L 3.5-5.0 g/dL Vancomycin Level Trough 9.2 L 10.0-20.0 UG/ML Immature Granulocyte % (Auto) 0.5 0-1 % Neutrophils (%) (Auto) 81.7 H 40.0-77.0 % Lymphocytes (%) (Auto) 9.4 L 21.0-51.0 % Monocytes (%) (Auto) 7.9 3.0-13.0 % Eosinophils (%) (Auto) 0.3 0.0-8.0 % Basophils (%) (Auto) 0.2 0.0-5.0 % Neutrophils # (Auto) 12.1 H 1.8-7.7 K/uL Lymphocytes # (Auto) 1.4 1.0-4.8 K/uL Monocytes # (Auto) 1.2 H 0.1-1.0 K/uL Eosinophils # (Auto) 0.04 0.00-0.70 K/uL Basophils # (Auto) 0.03 0.00-0.20 K/uL Absolute Immature Granulocyte (auto 0.07 0-1 K/uL White Cell Morphology Comment See comments ASSESSMENT: Left lateral chest wall abscess, s/p incision and drainage. Chest wall Cellulitis. Leukocytosis. Right upper extremity swelling. Former smoker. Gout. Morbid Obesity. PLAN: Discontinue metronidazole Continue vancomycin per pharmacy protocol. Continue cefepime. Continue GI prophylaxis. Wound care as recommended by General surgeon. We will follow up on the culture results. Continue pain management. Obtain right upper extremity venous Doppler to rule out DVT. This case was reviewed and discussed with my supervising physician Dr. Gomez and the above assessment and plan was formulated and agreed upon. ATTESTATION BY PHYSICIAN I have seen and examined the patient. I reviewed the documentation, medical decision making, and treatment plan as noted by the mid-level provider above. I agree with the findings and plan of care. ABDIRAHMAN GOMEZ MD, [facility] Mar 20, 2025 19:04
--- NOTE | 2025-03-20 19:31 | PN ---
GENERAL SURGERY PROGRESS NOTE DATE OF SERVICE: Mar 20, 2025 TIME OF SERVICE: 19:31 PROBLEM LISTS: [ ] Chest wall cellulitis and abscess INTERVAL HISTORY: [ ] Status post I and D PHYSICAL EXAMINATION: GENERAL: [Patient is lying comfortably in bed, not in any obvious distress.] HEAD: [Normal with no signs of head trauma.] EYES: [Not pale not jaundiced afebrile to touch.] ENT: [ Normal.] NECK: [Supple,no tenderness,no lymphadenopathy,no masses,no thyromegaly ,no bruits, no JVD.] LUNGS: [Clear breath sounds bilaterally. No wheezes, rales, or rhonchi.] Chest wall dressing in place HEART: [Regular rate and rhythm. Normal S1 and S2, without murmurs, rub or gallop.] VASC: [No edema. Peripheral pulses normal and equal in all extremities.] ABD: [Benign : [Normal, no suprapubic tenderness.] LYMPH: [No lymphadenopathy noted.] EXT: [ Warm soft, non tender.] SKIN: [ No rashes or lesions.] NEURO: [ Awake Alert and oriented x3.] LABORATORY: [ ] Hematology Labs: Test 03/20/25 07:31 03/19/25 06:12 Range/Units White Blood Count 13.8 H 4.8-10.8 K/uL Red Blood Count 3.83 L 4.50-6.20 MIL/uL Hemoglobin 12.2 L 14.0-18.0 g/dL Hematocrit 35.7 L 42-54 % Mean Corpuscular Volume 93.2 79-99 fL Mean Corpuscular Hemoglobin 31.9 27.0-33.0 pg Mean Corpuscular Hemoglobin Concent 34.2 32.0-36.0 g/dL Red Cell Distribution Width 12.0 11.0-15.5 % Platelet Count 215 130-400 K/uL Mean Platelet Volume 10.5 7.5-10.5 fL Nucleated Red Blood Cells 0.0 0.0-0.19 % Immature Granulocyte % (Auto) 0.5 0-1 % Neutrophils (%) (Auto) 81.7 H 40.0-77.0 % Lymphocytes (%) (Auto) 9.4 L 21.0-51.0 % Monocytes (%) (Auto) 7.9 3.0-13.0 % Eosinophils (%) (Auto) 0.3 0.0-8.0 % Basophils (%) (Auto) 0.2 0.0-5.0 % Neutrophils # (Auto) 12.1 H 1.8-7.7 K/uL Lymphocytes # (Auto) 1.4 1.0-4.8 K/uL Monocytes # (Auto) 1.2 H 0.1-1.0 K/uL Eosinophils # (Auto) 0.04 0.00-0.70 K/uL Basophils # (Auto) 0.03 0.00-0.20 K/uL Absolute Immature Granulocyte (auto 0.07 0-1 K/uL White Cell Morphology Comment See comments Chemistry Labs: Test 03/20/25 07:31 Range/Units Sodium Level 141 136-145 mmol/L Potassium Level 4.0 3.5-5.1 mmol/L Chloride Level 107 101-111 mmol/L Carbon Dioxide Level 29 21-32 mmol/L Blood Urea Nitrogen 11 7-18 mg/dL Creatinine 1.0 0.5-1.3 mg/dL Glomerular Filtration Rate Calc 88 >90 mL/min Random Glucose 129 H 70-105 mg/dL Total Calcium 8.1 L 8.5-10.1 mg/dL Magnesium Level 2.10 1.80-2.40 mg/dL Total Bilirubin 0.4 0.2-1.0 mg/dL Aspartate Amino Transf (AST/SGOT) 14 10-37 U/L Alanine Aminotransferase (ALT/SGPT) 25 12-78 U/L Alkaline Phosphatase 78 50-136 U/L Total Protein 5.8 L 6.0-8.3 g/dL Albumin 2.4 L 3.5-5.0 g/dL DIAGNOSTICS / RADIOLOGY: [Copy/Paste Echos/Imaging Report here] ASSESSMENT: [] Cellulitis and abscess Left chest wall S/p I&D PLAN: Local wound care IV antibiotics MARINO MCCRAY MD Mar 20, 2025 19:31
--- NOTE | 2025-03-20 23:51 | HMCIMG ---
EXAM: RIGHT WRIST (SCAPHOID) RADIOGRAPH, 2 VIEWS CLINICAL INFORMATION: Swelling. TECHNIQUE: Dedicated scaphoid (navicular) projections of the right wrist. COMPARISON: None provided. FINDINGS: OSSEOUS STRUCTURES: No acute fracture or cortical interruption of the scaphoid is identified and osseous alignment is preserved. JOINTS: Scapholunate interval is within normal limits and no carpal malalignment is identified. SOFT TISSUES: No soft-tissue gas or focal swelling is identified. DEVICES/FOREIGN BODIES: No radiopaque foreign body is identified. IMPRESSION: * No acute osseous abnormality of the right scaphoid or wrist. /[place]
[2025-03-21] VITALS (9 sets, daily range): BP systolic 122–148; BP diastolic 69–88; PULSE 66–86; RESP 16–20; TEMP 98–98.8; O2SAT 96–97
--- NOTE | 2025-03-21 00:58 | HMCIMG ---
EXAM: RIGHT UPPER EXTREMITY VENOUS DOPPLER ULTRASOUND CLINICAL INFORMATION: Right upper extremity edema; right hand edema with inability to make a fist. TECHNIQUE: Grayscale, color Doppler, and spectral Doppler evaluation of the right internal jugular, subclavian, axillary, brachial, radial, ulnar, basilic, and cephalic veins with compression maneuvers and augmentation where feasible. COMPARISON: None provided. FINDINGS: VENOUS SYSTEM ??? DEEP (IJV, SUBCLAVIAN, AXILLARY, BRACHIAL, RADIAL, ULNAR): Veins are patent with complete compressibility where assessable and demonstrate normal color fill and phasic/spectral flow; no intraluminal thrombus is identified. VENOUS SYSTEM ??? SUPERFICIAL (BASILIC, CEPHALIC): Noncompressible thrombus is present within the cephalic vein at the antecubital fossa with absent color flow consistent with superficial venous thrombosis; basilic vein is patent and compressible. SOFT TISSUES: Regional soft-tissue edema is present about the antecubital fossa. IMPRESSION: * Thrombosis of the right cephalic vein at the antecubital fossa, consistent with superficial venous thrombosis. * No evidence of deep venous thrombosis in the evaluated right upper extremity veins. * Correlate clinically for management of superficial thrombophlebitis; if there is progression of symptoms, extension toward the deep system, or persistent concern, short-interval follow-up ultrasound may be considered. /[place]
[2025-03-21 04:00] LABS: IMMATURE GRANULOCYTE ABSOLUTE 0.04 K/uL (0-1); NUCLEATED RED BLOOD CELLS 0.0 % (0.0-0.19); PLATELET COUNT (AUTO) 267 K/uL (130-400); RED BLOOD CELL COUNT(AUTO) 3.79 MIL/uL (4.50-6.20); RED CELL DISTRIBUTION WIDTH 12.2 % (11.0-15.5); WHITE BLOOD COUNT (AUTO) 9.6 K/uL (4.8-10.8)
[2025-03-21 04:15] LABS: ASPARTATE AMINOTRANSFERASE 17.0 U/L (10-37); CREATININE 1.1 mg/dL (0.5-1.3); GLOMERULAR FILTR. RATE CALC 79.0 mL/min (>90); GLUCOSE,RANDOM 113.0 mg/dL (70-105); SODIUM SERUM 139.0 mmol/L (136-145); TOTAL PROTEIN, SERUM 6.1 g/dL (6.0-8.3); UREA NITROGEN, BLOOD 14.0 mg/dL (7-18)
[2025-03-21] MEDS: ENOXAPARIN SODIUM 40 MG/0.4 ML SYRINGE SQ SCH (08:14)
--- NOTE | 2025-03-21 13:30 | PN ---
[facility] PROGRESS NOTE Date of Service: Mar 21, 2025 Time of Service: 13:25 Attending doctor Shade SUBJECTIVE: 03/18/25 54-year-old male with no significant past medical history presented to the hospital secondary to pain in the left lateral aspect of the chest wall. The patient states around two days ago he noted a small induration on the left anterior lateral aspect of the chest wall. The area was getting progressively indurated with increasing pain with movement of the shoulder and chest. He noted redness on the chest area. Denied any drainage from the area. Denied any insect bites, any cuts, scrapes to the chest wall. Patient is unsure if he had a rash present. Denied any chest pain, abdominal pain, nausea, vomiting. He noted he was having fevers today. Denied any nausea, vomiting. He currently does not take any medications at home. Denied any previous history of skin absc ess. Patient thereafter went to [facility] for further evaluation. Patient was transferred from [facility] to [facility] due to concern for chest wall cellulitis with associated abscess. Labs in [facility] ER showed white count of 15.1, hemoglobin was 13.9, platelet count was 226 K, sodium was 134, potassium was 4.5, chloride was 107, bicarb was 31 , blood glucose was 114 Patient underwent a ultrasound which showed a two subcutaneous lesions with echogenic center and anechoic rims. This was concerning for possible early abscess versus infected sebaceous cyst. 03/19/25 Patient evaluated in PACU, status post incision and drainage (I&D) of left anterior chest wall abscess. He currently has no complaints. Reports adequate pain control and is tolerating pain management regimen. No new symptoms reported. 03/20/25 patient was seen by nurse practitioner and physician during rounding in room 427. Patient is s/p I and D with Dr. Wen on 03/19/2025. Patient continues to be on Flagyl cefepime and vancomycin. ID consulted for IV antibiotic treatment. Cultures growing Gram-positive cocci. Patient is complaining of the right wrist swelling. Right wrist x-ray and right wrist ultrasound Doppler was ordered. We will continue to monitor patient in the meantime. A.m. labs. 03/21/25 patient was seen by nurse practitioner physician during rounding in room 4. WBC 9.6. Patient continues to be on vanco, cefepime and Flagyl as per ID. Wound culture is growing Gram-positive cocci. Patient was also complaining yesterday regarding that right wrist pain. Wrist x-ray showed no acute osseous abnormality of the right scaphoid or wrist. Venous Doppler showed thrombosis of the right cephalic vein at the antecubital suck consistent with a superficial venous thrombosis no evidence of DVT. Patient to elevate the hand and apply hot packs. Potassium today is 3.4 patient will receive 40 mEq x2 of potassium. We will continue to monitor patient in the meantime. A.m. labs. REVIEW OF SYSTEMS CONSTITUTIONAL: Denies fevers, chills, or night sweats. No unintentional weight loss reported. NEUROLOGICAL: Denies headache, amaurosis fugax, motor weakness, sensory deficit, vertigo/spinning sensation, gait abnormalities, or tremors. ENT: No hearing loss, otalgia, otorrhea, rhinitis, rhinorrhea, hoarseness, or sore throat. CARDIOVASCULAR: Denies any exertional angina, dyspnea on exertion, orthopnea, paroxysmal nocturnal dyspnea, palpitations, life-threatening arrhythmias, claudication. PULMONARY: Denies any shortness of breath, cough, phlegm/sputum, hemoptysis, pleuritic chest pain. GASTROINTESTINAL: Denies any type of dysphagia to either liquids or solids. Denies nausea, vomiting, pyrosis, early satiety, abdominal pain, diarrhea, constipation, or changes in stool consistency or caliber. Denies coffee-ground emesis, hematemesis, hematochezia, or melanotic stools. GENITOURINARY: Denies frequency, urgency, nocturia, hematuria or incontinence (Storage/Irritative symptoms.) Low urinary stream, straining to void, urinary intermittency or hesitancy, splitting of the voiding stream, terminal dribbling. ENDOCRINOLOGIC: Denies polyuria, polydipsia, polyphagia or heat/cold intolerances. HEMATOLOGIC: Denies thrombophilia/previous clots, or coagulopathy/bleeding disorders. ONCOLOGIC: Denies personal history of malignancy. DERMATOLOGIC: Positive Erythema and swelling on the left anterior chest wall area PSYCHIATRIC: Denies any suicidal or homicidal ideation. Denies hallucinations. PHYSICAL EXAM GENERAL APPEARANCE: The patient is awake, alert, and oriented, in no acute cardiopulmonary distress. NEUROLOGICAL: Cranial nerves II-XII grossly intact. Motor is 5/5 in bilateral upper and lower extremities proximal to distal. No sensory deficits. HEENT: Face is symmetric. Pupils are equal and reactive. Extraocular movements are intact. NECK: Supple. No JVD. No thyromegaly. No submental, submandibular, pre- /postauricular, occipital or supraclavicular lymphadenopathy. CHEST: Normal chest expansion. No Telemetry. On the left lateral anterior aspect of the chest wall. There is significant induration which is tender to palpation there is a small open wound which is not draining anything. There is associated erythema on the left chest wall area. No redness in the arm LUNGS: Absence of any rales, rhonchi or any wheezing. CARDIOVASCULAR: Regular. S1 and S2 normal. No appreciable rubs, murmurs or gallops. ABDOMEN: Soft, nontender, and nondistended. There is no rebound, voluntary guarding, or rigidity. : Deferred. No Berger. EXTREMITIES: Non-edematous and not cyanotic. No clubbing. Good capillary refill. SKIN: Erythema and induration on the left lateral anterior chest wall area Vital Signs (last 8hr) Date Time Temp Pulse Resp B/P (MAP) Pulse Ox O2 Delivery O2 Flow Rate FiO2 03/21/25 08:20 97 Room Air* 0 21 03/21/25 08:00 98.2 71 16 134/84 97 Room Air LABS: Laboratory: Test 03/21/25 03:32 03/20/25 07:31 Range/Units White Blood Count 9.6 # 4.8-10.8 K/uL Red Blood Count 3.79 L 4.50-6.20 MIL/uL Hemoglobin 11.9 L 14.0-18.0 g/dL Hematocrit 35.0 L 42-54 % Mean Corpuscular Volume 92.3 79-99 fL Mean Corpuscular Hemoglobin 31.4 27.0-33.0 pg Mean Corpuscular Hemoglobin Concent 34.0 32.0-36.0 g/dL Red Cell Distribution Width 12.2 11.0-15.5 % Platelet Count 267 130-400 K/uL Mean Platelet Volume 11.2 H 7.5-10.5 fL Immature Granulocyte % (Auto) 0.4 0-1 % Neutrophils (%) (Auto) 71.1 40.0-77.0 % Lymphocytes (%) (Auto) 18.7 L 21.0-51.0 % Monocytes (%) (Auto) 8.2 3.0-13.0 % Eosinophils (%) (Auto) 1.2 0.0-8.0 % Basophils (%) (Auto) 0.4 0.0-5.0 % Neutrophils # (Auto) 6.8 1.8-7.7 K/uL Lymphocytes # (Auto) 1.8 1.0-4.8 K/uL Monocytes # (Auto) 0.8 0.1-1.0 K/uL Eosinophils # (Auto) 0.11 0.00-0.70 K/uL Basophils # (Auto) 0.04 0.00-0.20 K/uL Absolute Immature Granulocyte (auto 0.04 0-1 K/uL Nucleated Red Blood Cells 0.0 0.0-0.19 % Sodium Level 139 136-145 mmol/L Potassium Level 3.4 L 3.5-5.1 mmol/L Chloride Level 106 101-111 mmol/L Carbon Dioxide Level 28 21-32 mmol/L Blood Urea Nitrogen 14 7-18 mg/dL Creatinine 1.1 0.5-1.3 mg/dL Glomerular Filtration Rate Calc 79 >90 mL/min Random Glucose 113 H 70-105 mg/dL Total Calcium 8.0 L 8.5-10.1 mg/dL Magnesium Level 1.90 1.80-2.40 mg/dL Total Bilirubin 0.3 # 0.2-1.0 mg/dL Aspartate Amino Transf (AST/SGOT) 17 10-37 U/L Alanine Aminotransferase (ALT/SGPT) 27 12-78 U/L Alkaline Phosphatase 69 50-136 U/L B-Type Natriuretic Peptide 90 0-100 pg/mL Total Protein 6.1 6.0-8.3 g/dL Albumin 2.2 L 3.5-5.0 g/dL Vancomycin Level Trough 9.2 L 10.0-20.0 UG/ML Current Medications Medications (Trade) Dose Ordered Sig/Dino Route PRN Reason Start Time Stop Time Status Last Admin Dose Admin Cefepime HCl (MAXipime 1 GM vial) 1 gm Q8H IVPB 03/19/25 01:00 03/18/25 23:58 DC Cefepime HCl (MAXipime 1 GM vial) 1 gm Q8H IVPB 03/19/25 02:00 03/21/25 11:56 DC 03/21/25 10:53 1 GM Cefepime HCl (MAXipime 1 GM vial) 1 gm Q8H IVPB 03/18/25 18:30 03/18/25 18:26 DC Enoxaparin Sodium (Lovenox) 40 mg DAILY SQ 03/21/25 09:00 04/20/25 08:59 03/21/25 08:14 40 MG Famotidine (Pepcid 20mg Vial) 20 mg BID IV 03/18/25 21:00 04/17/25 20:59 03/21/25 08:13 20 MG Famotidine (Pepcid 20mg Vial) 20 mg DAILY IV 03/19/25 09:00 03/18/25 18:37 DC Fentanyl Citrate (FENTanyl CITRate PF 50 MCG/ 1 ML 2ML VIAL) 25 mcg Q5MIN PRN IVP PAIN LEVEL 7 TO 10 03/19/25 11:30 03/20/25 03:07 DC Hydralazine HCl (APRESOLine 20MG INJ) 10 mg Q6H PRN IV For:SBP above 160;DBP above 90 03/18/25 18:30 04/17/25 18:29 Hydromorphone HCl (DiLAUDid 1MG INJ) 1 mg Q4H PRN IVP SEVERE PAIN (7-10) 03/20/25 03:00 03/25/25 02:59 03/20/25 18:25 1 MG Ketorolac Tromethamine (toRADol) 15 mg Q4HPRN PRN IV MODERATE PAIN (4-6) 03/20/25 19:30 03/25/25 19:29 Ketorolac Tromethamine (toRADol) 15 mg Q6H PRN IV MILD PAIN (1-3) 03/18/25 18:30 03/20/25 19:23 DC 03/18/25 20:56 15 MG Ketorolac Tromethamine (toRADol) 30 mg AD PRN IV MODERATE PAIN (4-6) 03/19/25 11:30 03/20/25 08:26 DC Lactated Ringer's 1,000 ml @ 75 mls/hr [id number] IV 03/18/25 18:30 03/18/25 18:51 DC Metoclopramide HCl (regLAN 10MG IV) 10 mg AD PRN IVP NAUSEA/VOMITING 03/19/25 11:30 03/20/25 08:26 DC Metronidazole/ Sodium Chloride 100 ml @ 100 mls/hr Q8H6 IVPB 03/19/25 01:00 03/19/25 22:05 DC 03/19/25 18:32 100 MLS/HR Metronidazole/ Sodium Chloride 100 ml @ 100 mls/hr Q8H6 IVPB 03/20/25 02:30 03/20/25 19:03 DC 03/20/25 06:34 100 MLS/HR Metronidazole/ Sodium Chloride 100 ml @ 100 mls/hr Q8H6 IVPB 03/18/25 23:00 03/18/25 23:57 DC Morphine Sulfate (morPHINE 2MG SYG) 2 mg AD PRN IVP PAIN LEVEL 4 TO 6 03/19/25 11:30 03/20/25 03:05 DC Morphine Sulfate (morPHINE 2MG SYG) 2 mg Q4H PRN IVP SEVERE PAIN (7-10) 03/18/25 18:30 03/20/25 03:06 DC Morphine Sulfate (morPHINE 4MG SYG) 4 mg Q4H PRN IVP SEVERE PAIN (7-10) 03/18/25 18:30 03/18/25 18:37 DC Naloxone HCl (NARcan 0.4mg/1 mL) 0.1 mg AD PRN IVP RESPIRATORY SYMPTOMS 03/19/25 11:30 03/20/25 08:26 DC Ondansetron HCl (zoFRAN 4MG INJ) 4 mg AD PRN IVP NAUSEA/VOMITING 03/19/25 11:30 03/20/25 08:26 DC Ondansetron HCl (zoFRAN 4MG INJ) 4 mg Q6H PRN IV NAUSEA/VOMITING 03/18/25 18:30 04/17/25 18:29 Oxycodone/ Acetaminophen (perCOCET) 1 tab Q4H PRN PO SEVERE PAIN (7-10) 03/20/25 03:00 03/27/25 02:59 03/21/25 08:14 1 TAB Promethazine HCl (Phenergan) 25 mg AD PRN IM NAUSEA/VOMITING 03/19/25 11:30 03/20/25 08:26 DC Sodium Chloride 1,000 ml @ 100 mls/hr Q10H IV 03/18/25 18:30 04/17/25 18:29 03/20/25 02:06 100 MLS/HR Vancomycin HCl 250 ml @ 125 mls/hr Q12H IV 03/19/25 08:00 03/29/25 07:59 03/21/25 08:13 125 MLS/HR Vancomycin HCl (Vancomycin Protocol) 1 each AD IV 03/18/25 18:30 04/01/25 18:29 DIAGNOSTICS / RADIOLOGY: [ ] ASSESSMENT: Status post I&D of left anterior chest wall abscess, secondary to cellulitis. Sepsis, improving. Leukocytosis, downtrending. Obesity (BMI 41.4). Hypoalbuminemia PLAN: WBC 9.6. Patient continues to be on vanco, cefepime and Flagyl as per ID. Wound culture is growing Gram-positive cocci. Patient was also complaining yesterday regarding that right wrist pain. Wrist x-ray showed no acute osseous abnormality of the right scaphoid or wrist. Venous Doppler showed thrombosis of the right cephalic vein at the antecubital suck consistent with a superficial venous thrombosis no evidence of DVT. Patient to elevate the hand and apply hot packs. Potassium today is 3.4 patient will receive 40 mEq x2 of potassium. We will continue to monitor patient in the meantime. A.m. labs. Continue pain management as tolerated. Monitor wound site for signs of recurrent infection or drainage. Infectious Disease consultated Monitor for clinical improvement and adjust management as needed. Continue to monitor hemodynamic status and laboratory trends. Advance care planning previously discussed; no new updates at this time. ATTESTATION BY PHYSICIAN I have seen and examined the patient. I reviewed the documentation, medical decision making, and treatment plan as noted by the mid-level provider above. I agree with the findings and plan of care. RUBIN ORONA MD ATTESTATION BY PHYSICIAN I have seen and examined the patient. I reviewed the documentation, medical decision making, and treatment plan as noted by the mid-level provider above. I agree with the findings and plan of care. RUBIN ORONA MD, KATARZYNA B [facility] Mar 21, 2025 13:30
[2025-03-21] MEDS: PoTASSium chloRIDE 20MEQ ER 20 MEQ ERTAB PO ONE ×2 (16:28→19:39)
--- NOTE | 2025-03-21 16:45 | CONS ---
CONSULTATION NOTE Date of Service: Mar 21, 2025 Reason for Consultation: [ ] Requesting Physician: [ ] HISTORY OF PRESENT ILLNESS: [ ] REVIEW OF SYSTEMS CONSTITUTIONAL: Denies fever, chills, or fatigue. HEAD/FACE: No signs of trauma. EENT: Denies eye pain, blurred vision, double vision, or light sensitivity. RESPIRATORY: Denies shortness of breath, cough, wheezing CARDIOVASCULAR: Denies chest pain, palpitation, syncope GASTROINTESTINAL/ABDOMINAL: Denies abdominal pain, constipation, diarrhea, nausea or vomiting GENITOURINARY: Denies dysuria or hematuria. MUSCULOSKELETAL: Denies joint pain, tenderness, or trauma. INTEGUMENTARY: Denies rash or itchiness NEUROLOGICAL/PSYCH: Denies anxiety, depression, heat or cold intolerance. PAST MEDICAL HISTORY: [ ] PAST SURGICAL HISTORY: [ ] PAST SOCIAL HISTORY: [ ] FAMILY HISTORY: [ ] Coded Allergies: No Known Allergies (Unverified Allergy, Unknown, 10/02/18) No Known Drug Allergies (Unverified Allergy, Unknown, 07/11/19) PHYSICAL EXAM EYES: Anicteric. Pupils equal and reactive. HENT: No oral thrush seen, moist Oral mucosa NECK: Supple, no JVD or thyromegaly. LUNGS: Good air entry. No rales, no rhonchi. CARDIOVASCULAR: S1, S2 regular. No murmur heard. ABDOMEN: Soft, non tender, bowel sounds present, no organomegaly CENTRAL NERVOUS SYSTEM: Awake, alert, oriented x 3. No focal deficits. SKIN: No rashes, no swelling. LYMPHATICS: No peripheral lymphadenopathy MUSCULOSKELETAL: No joint swelling, erythema or tenderness. EXTREMITIES: No cyanosis or clubbing BACK: No deformity, no pressure ulcer. GENITOURINARY: No dysuria or hematuria Vital Sign (Last 24 Hours) 03/21/25 03/21/25 08:20 12:00 Temp 98.1 Pulse 75 Resp 17 B/P (MAP) 148/88 Pulse Ox 98 O2 Delivery Room Air O2 Flow Rate 0 FiO2 21 Intake & Output (last 24hrs) 03/20/25 03/20/25 03/21/25 15:00 23:00 07:00 Intake Total 600 ml 500 ml Balance 600 ml 500 ml LABS: Laboratory: Test 03/21/25 03:32 03/20/25 07:31 Range/Units White Blood Count 9.6 # 4.8-10.8 K/uL Red Blood Count 3.79 L 4.50-6.20 MIL/uL Hemoglobin 11.9 L 14.0-18.0 g/dL Hematocrit 35.0 L 42-54 % Mean Corpuscular Volume 92.3 79-99 fL Mean Corpuscular Hemoglobin 31.4 27.0-33.0 pg Mean Corpuscular Hemoglobin Concent 34.0 32.0-36.0 g/dL Red Cell Distribution Width 12.2 11.0-15.5 % Platelet Count 267 130-400 K/uL Mean Platelet Volume 11.2 H 7.5-10.5 fL Immature Granulocyte % (Auto) 0.4 0-1 % Neutrophils (%) (Auto) 71.1 40.0-77.0 % Lymphocytes (%) (Auto) 18.7 L 21.0-51.0 % Monocytes (%) (Auto) 8.2 3.0-13.0 % Eosinophils (%) (Auto) 1.2 0.0-8.0 % Basophils (%) (Auto) 0.4 0.0-5.0 % Neutrophils # (Auto) 6.8 1.8-7.7 K/uL Lymphocytes # (Auto) 1.8 1.0-4.8 K/uL Monocytes # (Auto) 0.8 0.1-1.0 K/uL Eosinophils # (Auto) 0.11 0.00-0.70 K/uL Basophils # (Auto) 0.04 0.00-0.20 K/uL Absolute Immature Granulocyte (auto 0.04 0-1 K/uL Nucleated Red Blood Cells 0.0 0.0-0.19 % Sodium Level 139 136-145 mmol/L Potassium Level 3.4 L 3.5-5.1 mmol/L Chloride Level 106 101-111 mmol/L Carbon Dioxide Level 28 21-32 mmol/L Blood Urea Nitrogen 14 7-18 mg/dL Creatinine 1.1 0.5-1.3 mg/dL Glomerular Filtration Rate Calc 79 >90 mL/min Random Glucose 113 H 70-105 mg/dL Total Calcium 8.0 L 8.5-10.1 mg/dL Magnesium Level 1.90 1.80-2.40 mg/dL Total Bilirubin 0.3 # 0.2-1.0 mg/dL Aspartate Amino Transf (AST/SGOT) 17 10-37 U/L Alanine Aminotransferase (ALT/SGPT) 27 12-78 U/L Alkaline Phosphatase 69 50-136 U/L B-Type Natriuretic Peptide 90 0-100 pg/mL Total Protein 6.1 6.0-8.3 g/dL Albumin 2.2 L 3.5-5.0 g/dL Vancomycin Level Trough 9.2 L 10.0-20.0 UG/ML DIAGNOSTICS / RADIOLOGY: [ ] PROBLEM LIST : Unspecified open wound of left front wall of thorax without penetration into thoracic cavity, initial encounter PLAN: Wound care to left lateral chest wall: Cleanse with normal saline, pat dry, lightly pack with 1/2 inch iodoform packing strip, cover with gauze, secure with tape change daily and prn Keep wounds clean and dry Offloading/reposition q 2 hours Continue IV antibiotics per ID Comorbidities per primary care team Further Management per hospital course. Thank You for the consult and allowing us to participate in the care of this patient. FRANCINE GODOY SCOURER Mar 21, 2025 16:45
--- NOTE | 2025-03-21 17:35 | PN ---
INFECTIOUS DISEASE PROGRESS NOTE Date of Service: Mar 21, 2025 SUBJECTIVE: This is a 54-year-old male patient who was seen and examined at bedside in room 427. Patient is status post incision and drainage of the left lateral chest wall abscess on 03/19/2025. The preliminary wound cultures results is growing Gram- positive cocci in clusters, Staphylococcus aureus. The wound is very deep and being packed with iodoform gauze. Recommended Solara placement, patient's granddaughter however wants for patient to be discharged to home. Stated she is wound care certified and she wants to do the dressing changes at home. Case management to arrange. We will discontinue cefepime and continue Vancomycin per pharmacy protocol. The venous Doppler of the right upper extremity is positive for a superficial venous thrombosis of the right cephalic vein. Remains afebrile, temperature is 98.1. We will continue to monitor. PHYSICAL EXAM EYES: Anicteric. Pupils equal and reactive. HENT: No oral thrush seen, moist Oral mucosa NECK: Supple, no JVD or thyromegaly. LUNGS: Good air entry. No rales, no rhonchi. CHEST: Left chest wall Abscess/ s/p I/D. CARDIOVASCULAR: S1, S2 regular. No murmur heard. ABDOMEN: Soft, non tender, bowel sounds present. Obese. CENTRAL NERVOUS SYSTEM: Awake, alert, oriented x 3. SKIN: No rashes, no swelling. LYMPHATICS: No peripheral lymphadenopathy. MUSCULOSKELETAL: No joint swelling, erythema or tenderness. EXTREMITIES: No cyanosis or clubbing. Right upper extremity superficial venous thrombosis of the right cephalic vein. BACK: No deformity, no pressure ulcer. GENITOURINARY: No dysuria or hematuria. Vital Sign (Last 12 Hours) 03/21/25 03/21/25 03/21/25 03/21/25 08:00 08:20 12:00 16:00 Temp 98.2 98.1 98.8 Pulse 71 75 76 Resp 16 17 16 B/P (MAP) 134/84 148/88 143/81 Pulse Ox 97 97 98 98 O2 Delivery Room Air Room Air* Room Air Room Air O2 Flow Rate 0 FiO2 21 Intake & Output (last 24hrs) 03/20/25 03/20/25 03/21/25 15:00 23:00 07:00 Intake Total 600 ml 500 ml Balance 600 ml 500 ml LABS: Laboratory: Test 03/21/25 03:32 03/20/25 07:31 Range/Units White Blood Count 9.6 # 4.8-10.8 K/uL Red Blood Count 3.79 L 4.50-6.20 MIL/uL Hemoglobin 11.9 L 14.0-18.0 g/dL Hematocrit 35.0 L 42-54 % Mean Corpuscular Volume 92.3 79-99 fL Mean Corpuscular Hemoglobin 31.4 27.0-33.0 pg Mean Corpuscular Hemoglobin Concent 34.0 32.0-36.0 g/dL Red Cell Distribution Width 12.2 11.0-15.5 % Platelet Count 267 130-400 K/uL Mean Platelet Volume 11.2 H 7.5-10.5 fL Immature Granulocyte % (Auto) 0.4 0-1 % Neutrophils (%) (Auto) 71.1 40.0-77.0 % Lymphocytes (%) (Auto) 18.7 L 21.0-51.0 % Monocytes (%) (Auto) 8.2 3.0-13.0 % Eosinophils (%) (Auto) 1.2 0.0-8.0 % Basophils (%) (Auto) 0.4 0.0-5.0 % Neutrophils # (Auto) 6.8 1.8-7.7 K/uL Lymphocytes # (Auto) 1.8 1.0-4.8 K/uL Monocytes # (Auto) 0.8 0.1-1.0 K/uL Eosinophils # (Auto) 0.11 0.00-0.70 K/uL Basophils # (Auto) 0.04 0.00-0.20 K/uL Absolute Immature Granulocyte (auto 0.04 0-1 K/uL Nucleated Red Blood Cells 0.0 0.0-0.19 % Sodium Level 139 136-145 mmol/L Potassium Level 3.4 L 3.5-5.1 mmol/L Chloride Level 106 101-111 mmol/L Carbon Dioxide Level 28 21-32 mmol/L Blood Urea Nitrogen 14 7-18 mg/dL Creatinine 1.1 0.5-1.3 mg/dL Glomerular Filtration Rate Calc 79 >90 mL/min Random Glucose 113 H 70-105 mg/dL Total Calcium 8.0 L 8.5-10.1 mg/dL Magnesium Level 1.90 1.80-2.40 mg/dL Total Bilirubin 0.3 # 0.2-1.0 mg/dL Aspartate Amino Transf (AST/SGOT) 17 10-37 U/L Alanine Aminotransferase (ALT/SGPT) 27 12-78 U/L Alkaline Phosphatase 69 50-136 U/L B-Type Natriuretic Peptide 90 0-100 pg/mL Total Protein 6.1 6.0-8.3 g/dL Albumin 2.2 L 3.5-5.0 g/dL Vancomycin Level Trough 9.2 L 10.0-20.0 UG/ML DIAGNOSTICS/ RADIOLOGY: ATIENT: KRISTINA BLOCK ACCT: [id number] LOC: [facility] U: [id number] AGE/SX: 54/M ROOM: 427 RE03/18/[address]: PREM ADAM MD : 1970 BED: 1 DIS: STATUS: ADM IN TLOC: --------- --- SPEC: [id number] FIOR: 03/19/25 STATUS: RES REQ: [id number] RECD: 03/19/[address]: MARINO MCCRAY MD SOURCE: CHEST ENTR: 03/19/25-[address]: ABDIRAHMAN GOMEZ MD SPDESC: ABSCESS PREM ADAM MD, FRANK MD ORDERED: GS, NADINE CULTURE, AEROBIC CULTURE COMMENTS: Has specimen been collected/obtained? Y Specimen Comment: CHEST LEFT SIDE ABSCESS COL BY DR Procedure Result Curtis Date-Time GRAM STAIN ONLY Final 03/19/25161 GRAM STAIN: RARE GRAM POSITIVE COCCI 2+ GRAM POSITIVE COCCI IN CLUSTERS 2+ WBC ANAEROBIC CULTURE Preliminary 03/21/25 [facility] DESCRIPTION: REPORT 1: NO ANAEROBES AT 24-35 HOURS; STUDIES TO CONTINUE Test(s) performed by: [facility] [address] [place] [address] AEROBIC CULTURE Preliminary 03/21/25 [facility] DESCRIPTION: REPORT 1: 2+ GRAM POSITIVE COCCI IN CLUSTERS STAPHYLOCOCCUS AUREUS SENSITIVITY TO FOLLOW ASSESSMENT: Left lateral chest wall abscess, s/p incision and drainage on 03/19/2025. Chest wall Cellulitis. Leukocytosis, improving. Former smoker. Gout. Morbid Obesity. Superficial venous thrombosis of the right cephalic vein. PLAN: Discontinue cefepime. Continue vancomycin per pharmacy protocol. Continue GI prophylaxis. Continue Wound care as recommended by General surgeon. We will follow up on the culture results. Continue pain management. This case was reviewed and discussed with my supervising physician Dr. Gomez and the above assessment and plan was formulated and agreed upon. ATTESTATION BY PHYSICIAN I have seen and examined the patient. I reviewed the documentation, medical decision making, and treatment plan as noted by the mid-level provider above. I agree with the findings and plan of care. ABDIRAHMAN GOMEZ MD, MIRTA L [facility] Mar 21, 2025 17:35
--- NOTE | 2025-03-21 19:08 | PN ---
GENERAL SURGERY PROGRESS NOTE DATE OF SERVICE: Mar 21, 2025 TIME OF SERVICE: 19:08 No new issues PROBLEM LISTS: [ ] Left chest wall cellulitis and abscess INTERVAL HISTORY: [ ] S/p I&D Doing better PHYSICAL EXAMINATION: GENERAL: [Patient is lying comfortably in bed, not in any obvious distress.] HEAD: [Normal with no signs of head trauma.] EYES: [Not pale not jaundiced afebrile to touch.] ENT: [ Normal.] NECK: [Supple,no tenderness,no lymphadenopathy,no masses,no thyromegaly ,no bruits, no JVD.] LUNGS: [Clear breath sounds bilaterally. No wheezes, rales, or rhonchi.] Left chest wall dressing in place HEART: [Regular rate and rhythm. Normal S1 and S2, without murmurs, rub or gallop.] VASC: [No edema. Peripheral pulses normal and equal in all extremities.] ABD: Benign : [Normal, no suprapubic tenderness.] LYMPH: [No lymphadenopathy noted.] EXT: [ Warm soft, non tender.] SKIN: [ No rashes or lesions.] NEURO: [ Awake Alert and oriented x3.] LABORATORY: [ ] Hematology Labs: Test 03/21/25 03:32 Range/Units White Blood Count 9.6 # 4.8-10.8 K/uL Red Blood Count 3.79 L 4.50-6.20 MIL/uL Hemoglobin 11.9 L 14.0-18.0 g/dL Hematocrit 35.0 L 42-54 % Mean Corpuscular Volume 92.3 79-99 fL Mean Corpuscular Hemoglobin 31.4 27.0-33.0 pg Mean Corpuscular Hemoglobin Concent 34.0 32.0-36.0 g/dL Red Cell Distribution Width 12.2 11.0-15.5 % Platelet Count 267 130-400 K/uL Mean Platelet Volume 11.2 H 7.5-10.5 fL Immature Granulocyte % (Auto) 0.4 0-1 % Neutrophils (%) (Auto) 71.1 40.0-77.0 % Lymphocytes (%) (Auto) 18.7 L 21.0-51.0 % Monocytes (%) (Auto) 8.2 3.0-13.0 % Eosinophils (%) (Auto) 1.2 0.0-8.0 % Basophils (%) (Auto) 0.4 0.0-5.0 % Neutrophils # (Auto) 6.8 1.8-7.7 K/uL Lymphocytes # (Auto) 1.8 1.0-4.8 K/uL Monocytes # (Auto) 0.8 0.1-1.0 K/uL Eosinophils # (Auto) 0.11 0.00-0.70 K/uL Basophils # (Auto) 0.04 0.00-0.20 K/uL Absolute Immature Granulocyte (auto 0.04 0-1 K/uL Nucleated Red Blood Cells 0.0 0.0-0.19 % Chemistry Labs: Test 03/21/25 03:32 Range/Units Sodium Level 139 136-145 mmol/L Potassium Level 3.4 L 3.5-5.1 mmol/L Chloride Level 106 101-111 mmol/L Carbon Dioxide Level 28 21-32 mmol/L Blood Urea Nitrogen 14 7-18 mg/dL Creatinine 1.1 0.5-1.3 mg/dL Glomerular Filtration Rate Calc 79 >90 mL/min Random Glucose 113 H 70-105 mg/dL Total Calcium 8.0 L 8.5-10.1 mg/dL Magnesium Level 1.90 1.80-2.40 mg/dL Total Bilirubin 0.3 # 0.2-1.0 mg/dL Aspartate Amino Transf (AST/SGOT) 17 10-37 U/L Alanine Aminotransferase (ALT/SGPT) 27 12-78 U/L Alkaline Phosphatase 69 50-136 U/L B-Type Natriuretic Peptide 90 0-100 pg/mL Total Protein 6.1 6.0-8.3 g/dL Albumin 2.2 L 3.5-5.0 g/dL DIAGNOSTICS / RADIOLOGY: [Copy/Paste Echos/Imaging Report here] ASSESSMENT: [] Left chest wall cellulitis and abscess S/p I&D Overall doing well PLAN: Local wound care IV antibiotics MARINO MCCRAY MD Mar 21, 2025 19:08
[2025-03-21] MEDS: INDOMETHACIN 25 MG CAP PO SCH (20:52)
[2025-03-22 03:44] VITALS: BP 120/68; PULSE 72; RESP 16; TEMP 97.7
[2025-03-22 04:09] LABS: IMMATURE GRANULOCYTE ABSOLUTE 0.04 K/uL (0-1); NUCLEATED RED BLOOD CELLS 0.0 % (0.0-0.19); PLATELET COUNT (AUTO) 278 K/uL (130-400); RED BLOOD CELL COUNT(AUTO) 3.69 MIL/uL (4.50-6.20); RED CELL DISTRIBUTION WIDTH 12.0 % (11.0-15.5); WHITE BLOOD COUNT (AUTO) 8.3 K/uL (4.8-10.8)
[2025-03-22 04:28] LABS: ASPARTATE AMINOTRANSFERASE 16.0 U/L (10-37); CREATININE 1.0 mg/dL (0.5-1.3); GLOMERULAR FILTR. RATE CALC 88.0 mL/min (>90); GLUCOSE,RANDOM 111.0 mg/dL (70-105); SODIUM SERUM 140.0 mmol/L (136-145); TOTAL PROTEIN, SERUM 6.1 g/dL (6.0-8.3); UREA NITROGEN, BLOOD 10.0 mg/dL (7-18)
[2025-03-22 08:00] VITALS: BP 139/84; PULSE 81; RESP 18; TEMP 99.3
[2025-03-22 08:56] VITALS: O2SAT 99
[2025-03-22 12:00] VITALS: BP 127/70; PULSE 76; RESP 16; TEMP 97.9
[2025-03-22] MEDS: Solu-medROL 40MG VIAL IVP ONE (13:21)
--- NOTE | 2025-03-22 14:12 | PN ---
INFECTIOUS DISEASE PROGRESS NOTE Date of Service: Mar 22, 2025 SUBJECTIVE: This is a 54-year-old male patient who was seen and examined at bedside in room 427. Patient is status post incision and drainage of the left lateral chest wall abscess on 03/19/2025. The preliminary wound cultures results is growing Methicillin-Resistant Staphylococcus aureus. Patient is to continue on vancomycin. Low-grade fever of 99.3 this morning, the WBC however has trended down to 8.3. Patient reported pain to his joints and applying ice packs. Stated he feels he feels is probably his gout flaring-up. We will administer Solu-Medrol 40 mg IV x1 dose. Case management working on placement. PHYSICAL EXAM EYES: Anicteric. Pupils equal and reactive. HENT: No oral thrush seen, moist Oral mucosa NECK: Supple, no JVD or thyromegaly. LUNGS: Good air entry. No rales, no rhonchi. CHEST: Left chest wall Abscess/ s/p I/D. CARDIOVASCULAR: S1, S2 regular. No murmur heard. ABDOMEN: Soft, non tender, bowel sounds present. Obese. CENTRAL NERVOUS SYSTEM: Awake, alert, oriented x 3. SKIN: No rashes, no swelling. LYMPHATICS: No peripheral lymphadenopathy. MUSCULOSKELETAL: No joint swelling, erythema or tenderness. EXTREMITIES: No cyanosis or clubbing. Right upper extremity superficial venous thrombosis of the right cephalic vein. BACK: No deformity, no pressure ulcer. GENITOURINARY: No dysuria or hematuria. Vital Sign (Last 12 Hours) 03/22/25 03/22/25 03/22/25 03/22/25 03:44 08:00 08:56 12:00 Temp 97.7 99.3 97.9 Pulse 72 81 76 Resp 16 18 16 B/P (MAP) 120/68 139/84 127/70 Pulse Ox 98 99 99 98 O2 Delivery Room Air Room Air Room Air* Room Air O2 Flow Rate 0 FiO2 21 Intake & Output (last 24hrs) 03/21/25 03/21/25 03/22/25 15:00 23:00 07:00 Intake Total 300.0 ml 850.0 ml Balance 300.0 ml 850.0 ml LABS: Laboratory: Test 03/22/25 06:33 03/22/25 03:40 03/21/25 03:32 Range/Units Vancomycin Level Trough 9.9 L 10.0-20.0 UG/ML White Blood Count 8.3 4.8-10.8 K/uL Red Blood Count 3.69 L 4.50-6.20 MIL/uL Hemoglobin 11.6 L 14.0-18.0 g/dL Hematocrit 34.1 L 42-54 % Mean Corpuscular Volume 92.4 79-99 fL Mean Corpuscular Hemoglobin 31.4 27.0-33.0 pg Mean Corpuscular Hemoglobin Concent 34.0 32.0-36.0 g/dL Red Cell Distribution Width 12.0 11.0-15.5 % Platelet Count 278 130-400 K/uL Mean Platelet Volume 10.5 7.5-10.5 fL Immature Granulocyte % (Auto) 0.5 0-1 % Neutrophils (%) (Auto) 68.0 40.0-77.0 % Lymphocytes (%) (Auto) 18.5 L 21.0-51.0 % Monocytes (%) (Auto) 11.2 3.0-13.0 % Eosinophils (%) (Auto) 1.3 0.0-8.0 % Basophils (%) (Auto) 0.5 0.0-5.0 % Neutrophils # (Auto) 5.6 1.8-7.7 K/uL Lymphocytes # (Auto) 1.5 1.0-4.8 K/uL Monocytes # (Auto) 0.9 0.1-1.0 K/uL Eosinophils # (Auto) 0.11 0.00-0.70 K/uL Basophils # (Auto) 0.04 0.00-0.20 K/uL Absolute Immature Granulocyte (auto 0.04 0-1 K/uL Nucleated Red Blood Cells 0.0 0.0-0.19 % Sodium Level 140 136-145 mmol/L Potassium Level 3.6 3.5-5.1 mmol/L Chloride Level 104 101-111 mmol/L Carbon Dioxide Level 27 21-32 mmol/L Blood Urea Nitrogen 10 7-18 mg/dL Creatinine 1.0 0.5-1.3 mg/dL Glomerular Filtration Rate Calc 88 >90 mL/min Random Glucose 111 H 70-105 mg/dL Total Calcium 8.3 L 8.5-10.1 mg/dL Magnesium Level 1.80 1.80-2.40 mg/dL Total Bilirubin 0.4 0.2-1.0 mg/dL Aspartate Amino Transf (AST/SGOT) 16 10-37 U/L Alanine Aminotransferase (ALT/SGPT) 29 12-78 U/L Alkaline Phosphatase 74 50-136 U/L Total Protein 6.1 6.0-8.3 g/dL Albumin 2.3 L 3.5-5.0 g/dL B-Type Natriuretic Peptide 90 0-100 pg/mL DIAGNOSTICS/ RADIOLOGY: PATIENT: KRISTINA BLOCK ACCT: [id number] LOC: [facility] U: [id number] AGE/SX: 54/M ROOM: [facility] RE03/18/[address]: PREM ADAM MD : 1970 BED: 1 DIS: STATUS: ADM IN TLOC: SPEC: [id number] FIOR: 03/19/25 STATUS: RES REQ: [id number] RECD: 03/19/[address]: MARINO MCCRAY MD SOURCE: CHEST ENTR: 03/19/25-[address]: ABDIRAHMAN GOMEZ MD SPDESC: ABSCESS PREM ADAM MD, FRANK MD ORDERED: GS, NADINE CULTURE, AEROBIC CULTURE COMMENTS: Has specimen been collected/obtained? Y Specimen Comment: CHEST LEFT SIDE ABSCESS COL BY Has specimen been collected/obtained? Y Specimen Comment: CHEST LEFT SIDE ABSCESS COL BY Procedure Result Curtis Date-Time GRAM STAIN ONLY Final 03/19/25-1611 GRAM STAIN: RARE GRAM POSITIVE COCCI 2+ GRAM POSITIVE COCCI IN CLUSTERS 2+ WBC CONTINUED ON NEXT PAGE RUN DATE: 03/22/25 [facility] PAGE 2 RUN TIME: [id number] [address] Department of [employer] CLIA # [id number] Hoof Trimmer: Chen Garcia DO Specimen Report SPEC: [id number] PATIENT: MCKAYLAKRISTINA [id number] (Continued) Procedure Result Curtis Date-Time ANAEROBIC CULTURE Preliminary 03/22/25-1102 [facility] DESCRIPTION: REPORT 1: NO ANAEROBES AT 24-35 HOURS; STUDIES TO CONTINUE REPORT 2: NO ANAEROBES AT 48-59 HOURS; STUDIES TO CONTINUE Test(s) performed by: [facility] [address] [address] AEROBIC CULTURE Final 03/22/25-1102 [facility] METHICILLIN-RESISTANT STAPHYLOCOCCUS AUREUS RESULT WAS CALLED BY CHRISTY MARIE ON 03/22/25 AT 0825. CRITICAL VALUES WERE READ BACK AND ACKNOWLEDGED BY MARGOTH ESCUDERO ( [facility] ) COLONY DESCRIPTION: REPORT 1: 2+ GRAM POSITIVE COCCI IN CLUSTERS STAPHYLOCOCCUS AUREUS SENSITIVITY TO FOLLOW REPORT 2: NO FURTHER WORK-UP DONE MRSA: NOTE: THIS IS A METHICILLIN-RESISTANT STAPH AUREUS STAPHYLOCOCCUS AUREUS-MRSA MRSA M.I.C. RX --------- ---- CLINDAMYCIN 0.5 S ERYTHROMYCIN <=0.5 S GENTAMICIN <=4 S VANCOMYCIN 1 S OXACILLIN PAULETTE >2 R RIFAMPIN <=1 S TETRACYCLINE <=4 S TRIMETHOPRIM/SUFLAMETHOXAZOLE <=0.5/9.5 S ASSESSMENT: Left lateral chest wall abscess, s/p incision and drainage on 03/19/2025. Infection with Methicillin-Resistant Staphylococcus Aureus. Chest wall Cellulitis. Leukocytosis, resolved. Former smoker. Gout. Morbid Obesity. Superficial venous thrombosis of the right cephalic vein. PLAN: Continue vancomycin per pharmacy protocol. Continue GI prophylaxis. Continue Lovenox. Continue Wound care as recommended by General surgeon. Continue pain management. Case management working on placement. Solu-Medrol 40 mg IV x1 dose for possible gout flare-up. This case was reviewed and discussed with my supervising physician Dr. Gomez and the above assessment and plan was formulated and agreed upon. ATTESTATION BY PHYSICIAN I have seen and examined the patient. I reviewed the documentation, medical decision making, and treatment plan as noted by the mid-level provider above. I agree with the findings and plan of care. ABDIRAHMAN GOMEZ MD, [facility] Mar 22, 2025 14:11
--- NOTE | 2025-03-22 14:28 | PN ---
[facility] PROGRESS NOTE Date of Service: Mar 22, 2025 Time of Service: 14:[address] Orona SUBJECTIVE: 03/18/25 54-year-old male with no significant past medical history presented to the hospital secondary to pain in the left lateral aspect of the chest wall. The patient states around two days ago he noted a small induration on the left anterior lateral aspect of the chest wall. The area was getting progressively indurated with increasing pain with movement of the shoulder and chest. He noted redness on the chest area. Denied any drainage from the area. Denied any insect bites, any cuts, scrapes to the chest wall. Patient is unsure if he had a rash present. Denied any chest pain, abdominal pain, nausea, vomiting. He noted he was having fevers today. Denied any nausea, vomiting. He currently does not take any medications at home. Denied any previous history of skin abscess. Patient thereafter went to [facility] for further evaluation. Patient was transferred from [facility] to [facility] due to concern for chest wall cellulitis with associated abscess. Labs in [facility] showed white count of 15.1, hemoglobin was 13.9, platelet count was 226 K, sodium was 134, potassium was 4.5, chloride was 107, bicarb was 31 , blood glucose was 114 Patient underwent a ultrasound which showed a two subcutaneous lesions with echogenic center and anechoic rims. This was concerning for possible early abscess versus infected sebaceous cyst. 03/19/25 Patient evaluated in PACU, status post incision and drainage (I&D) of left anterior chest wall abscess. He currently has no complaints. Reports adequate pain control and is tolerating pain management regimen. No new symptoms reported. 03/20/25 patient was seen by nurse practitioner and physician during rounding in room 427. Patient is s/p I and D with Dr. Wen on 03/19/2025. Patient continues to be on Flagyl cefepime and vancomycin. ID consulted for IV antibiotic treatment. Cultures growing Gram-positive cocci. Patient is complaining of the right wrist swelling. Right wrist x-ray and right wrist ultrasound Doppler was ordered. We will continue to monitor patient in the meantime. A.m. labs. 03/21/25 patient was seen by nurse practitioner physician during rounding in room 4. WBC 9.6. Patient continues to be on vanco, cefepime and Flagyl as per ID. Wound culture is growing Gram-positive cocci. Patient was also complaining yesterday regarding that right wrist pain. Wrist x-ray showed no acute osseous abnormality of the right scaphoid or wrist. Venous Doppler showed thrombosis of the right cephalic vein at the antecubital suck consistent with a superficial venous thrombosis no evidence of DVT. Patient to elevate the hand and apply hot packs. Potassium today is 3.4 patient will receive 40 mEq x2 of potassium. We will continue to monitor patient in the meantime. A.m. labs. 03/22/25 patient was seen nurse practitioner physician during rounding in room 427. Patient's culture of the wound is growing MRSA. As per ID continue vancomycin and patient will also need a midline. Patient will be referred to [facility]. Case management consulted. We will continue to monitor patient in the meantime. A.m. labs. REVIEW OF SYSTEMS CONSTITUTIONAL: Denies fevers, chills, or night sweats. No unintentional weight loss reported. NEUROLOGICAL: Denies headache, amaurosis fugax, motor weakness, sensory deficit, vertigo/spinning sensation, gait abnormalities, or tremors. ENT: No hearing loss, otalgia, otorrhea, rhinitis, rhinorrhea, hoarseness, or sore throat. CARDIOVASCULAR: Denies any exertional angina, dyspnea on exertion, orthopnea, paroxysmal nocturnal dyspnea, palpitations, life-threatening arrhythmias, claudication. PULMONARY: Denies any shortness of breath, cough, phlegm/sputum, hemoptysis, pleuritic chest pain. GASTROINTESTINAL: Denies any type of dysphagia to either liquids or solids. Denies nausea, vomiting, pyrosis, early satiety, abdominal pain, diarrhea, constipation, or changes in stool consistency or caliber. Denies coffee-ground emesis, hematemesis, hematochezia, or melanotic stools. GENITOURINARY: Denies frequency, urgency, nocturia, hematuria or incontinence (Storage/Irritative symptoms.) Low urinary stream, straining to void, urinary intermittency or hesitancy, splitting of the voiding stream, terminal dribbling. ENDOCRINOLOGIC: Denies polyuria, polydipsia, polyphagia or heat/cold intolerances. HEMATOLOGIC: Denies thrombophilia/previous clots, or coagulopathy/bleeding disorders. ONCOLOGIC: Denies personal history of malignancy. DERMATOLOGIC: Positive Erythema and swelling on the left anterior chest wall area PSYCHIATRIC: Denies any suicidal or homicidal ideation. Denies hallucinations. PHYSICAL EXAM GENERAL APPEARANCE: The patient is awake, alert, and oriented, in no acute cardiopulmonary distress. NEUROLOGICAL: Cranial nerves II-XII grossly intact. Motor is 5/5 in bilateral upper and lower extremities proximal to distal. No sensory deficits. HEENT: Face is symmetric. Pupils are equal and reactive. Extraocular movements are intact. NECK: Supple. No JVD. No thyromegaly. No submental, submandibular, pre- /postauricular, occipital or supraclavicular lymphadenopathy. CHEST: Normal chest expansion. No Telemetry. On the left lateral anterior aspect of the chest wall. There is significant induration which is tender to palpation there is a small open wound which is not draining anything. There is associated erythema on the left chest wall area. No redness in the arm LUNGS: Absence of any rales, rhonchi or any wheezing. CARDIOVASCULAR: Regular. S1 and S2 normal. No appreciable rubs, murmurs or gallops. ABDOMEN: Soft, nontender, and nondistended. There is no rebound, voluntary guarding, or rigidity. : Deferred. No Berger. EXTREMITIES: Non-edematous and not cyanotic. No clubbing. Good capillary refill. SKIN: Erythema and induration on the left lateral anterior chest wall area Vital Signs (last 8hr) Date Time Temp Pulse Resp B/P (MAP) Pulse Ox O2 Delivery O2 Flow Rate FiO2 03/22/25 12:00 97.9 76 16 127/70 98 Room Air 03/22/25 08:56 99 Room Air* 0 21 03/22/25 08:00 99.3 81 18 139/84 99 Room Air LABS: Laboratory: Test 03/22/25 06:33 03/22/25 03:40 03/21/25 03:32 Range/Units Vancomycin Level Trough 9.9 L 10.0-20.0 UG/ML White Blood Count 8.3 4.8-10.8 K/uL Red Blood Count 3.69 L 4.50-6.20 MIL/uL Hemoglobin 11.6 L 14.0-18.0 g/dL Hematocrit 34.1 L 42-54 % Mean Corpuscular Volume 92.4 79-99 fL Mean Corpuscular Hemoglobin 31.4 27.0-33.0 pg Mean Corpuscular Hemoglobin Concent 34.0 32.0-36.0 g/dL Red Cell Distribution Width 12.0 11.0-15.5 % Platelet Count 278 130-400 K/uL Mean Platelet Volume 10.5 7.5-10.5 fL Immature Granulocyte % (Auto) 0.5 0-1 % Neutrophils (%) (Auto) 68.0 40.0-77.0 % Lymphocytes (%) (Auto) 18.5 L 21.0-51.0 % Monocytes (%) (Auto) 11.2 3.0-13.0 % Eosinophils (%) (Auto) 1.3 0.0-8.0 % Basophils (%) (Auto) 0.5 0.0-5.0 % Neutrophils # (Auto) 5.6 1.8-7.7 K/uL Lymphocytes # (Auto) 1.5 1.0-4.8 K/uL Monocytes # (Auto) 0.9 0.1-1.0 K/uL Eosinophils # (Auto) 0.11 0.00-0.70 K/uL Basophils # (Auto) 0.04 0.00-0.20 K/uL Absolute Immature Granulocyte (auto 0.04 0-1 K/uL Nucleated Red Blood Cells 0.0 0.0-0.19 % Sodium Level 140 136-145 mmol/L Potassium Level 3.6 3.5-5.1 mmol/L Chloride Level 104 101-111 mmol/L Carbon Dioxide Level 27 21-32 mmol/L Blood Urea Nitrogen 10 7-18 mg/dL Creatinine 1.0 0.5-1.3 mg/dL Glomerular Filtration Rate Calc 88 >90 mL/min Random Glucose 111 H 70-105 mg/dL Total Calcium 8.3 L 8.5-10.1 mg/dL Magnesium Level 1.80 1.80-2.40 mg/dL Total Bilirubin 0.4 0.2-1.0 mg/dL Aspartate Amino Transf (AST/SGOT) 16 10-37 U/L Alanine Aminotransferase (ALT/SGPT) 29 12-78 U/L Alkaline Phosphatase 74 50-136 U/L Total Protein 6.1 6.0-8.3 g/dL Albumin 2.3 L 3.5-5.0 g/dL B-Type Natriuretic Peptide 90 0-100 pg/mL Current Medications Medications (Trade) Dose Ordered Sig/Dino Route PRN Reason Start Time Stop Time Status Last Admin Dose Admin Cefepime HCl (MAXipime 1 GM vial) 1 gm Q8H IVPB 03/19/25 01:00 03/18/25 23:58 DC Cefepime HCl (MAXipime 1 GM vial) 1 gm Q8H IVPB 03/19/25 02:00 03/21/25 11:56 DC 03/21/25 10:53 1 GM Cefepime HCl (MAXipime 1 GM vial) 1 gm Q8H IVPB 03/18/25 18:30 03/18/25 18:26 DC Enoxaparin Sodium (Lovenox) 40 mg DAILY SQ 03/21/25 09:00 04/20/25 08:59 03/22/25 08:50 40 MG Famotidine (Pepcid 20mg Vial) 20 mg BID IV 03/18/25 21:00 04/17/25 20:59 03/22/25 08:49 20 MG Famotidine (Pepcid 20mg Vial) 20 mg DAILY IV 03/19/25 09:00 03/18/25 18:37 DC Fentanyl Citrate (FENTanyl CITRate PF 50 MCG/ 1 ML 2ML VIAL) 25 mcg Q5MIN PRN IVP PAIN LEVEL 7 TO 10 03/19/25 11:30 03/20/25 03:07 DC Hydralazine HCl (APRESOLine 20MG INJ) 10 mg Q6H PRN IV For:SBP above 160;DBP above 90 03/18/25 18:30 04/17/25 18:29 Hydromorphone HCl (DiLAUDid 1MG INJ) 1 mg Q4H PRN IVP SEVERE PAIN (7-10) 03/20/25 03:00 03/25/25 02:59 03/20/25 18:25 1 MG Indomethacin (Indocin) 50 mg TID PO 03/21/25 21:00 04/20/25 20:59 03/22/25 13:20 50 MG Ketorolac Tromethamine (toRADol) 15 mg Q4HPRN PRN IV MODERATE PAIN (4-6) 03/20/25 19:30 03/25/25 19:29 03/21/25 19:49 15 MG Ketorolac Tromethamine (toRADol) 15 mg Q6H PRN IV MILD PAIN (1-3) 03/18/25 18:30 03/20/25 19:23 DC 03/18/25 20:56 15 MG Ketorolac Tromethamine (toRADol) 30 mg AD PRN IV MODERATE PAIN (4-6) 03/19/25 11:30 03/20/25 08:26 DC Lactated Ringer's 1,000 ml @ 75 mls/hr [id number] IV 03/18/25 18:30 03/18/25 18:51 DC Metoclopramide HCl (regLAN 10MG IV) 10 mg AD PRN IVP NAUSEA/VOMITING 03/19/25 11:30 03/20/25 08:26 DC Metronidazole/ Sodium Chloride 100 ml @ 100 mls/hr Q8H6 IVPB 03/19/25 01:00 03/19/25 22:05 DC 03/19/25 18:32 100 MLS/HR Metronidazole/ Sodium Chloride 100 ml @ 100 mls/hr Q8H6 IVPB 03/20/25 02:30 03/20/25 19:03 DC 03/20/25 06:34 100 MLS/HR Metronidazole/ Sodium Chloride 100 ml @ 100 mls/hr Q8H6 IVPB 03/18/25 23:00 03/18/25 23:57 DC Morphine Sulfate (morPHINE 2MG SYG) 2 mg AD PRN IVP PAIN LEVEL 4 TO 6 03/19/25 11:30 03/20/25 03:05 DC Morphine Sulfate (morPHINE 2MG SYG) 2 mg Q4H PRN IVP SEVERE PAIN (7-10) 03/18/25 18:30 03/20/25 03:06 DC Morphine Sulfate (morPHINE 4MG SYG) 4 mg Q4H PRN IVP SEVERE PAIN (7-10) 03/18/25 18:30 03/18/25 18:37 DC Naloxone HCl (NARcan 0.4mg/1 mL) 0.1 mg AD PRN IVP RESPIRATORY SYMPTOMS 03/19/25 11:30 03/20/25 08:26 DC Ondansetron HCl (zoFRAN 4MG INJ) 4 mg AD PRN IVP NAUSEA/VOMITING 03/19/25 11:30 03/20/25 08:26 DC Ondansetron HCl (zoFRAN 4MG INJ) 4 mg Q6H PRN IV NAUSEA/VOMITING 03/18/25 18:30 04/17/25 18:29 Oxycodone/ Acetaminophen (perCOCET) 1 tab Q4H PRN PO SEVERE PAIN (7-10) 03/20/25 03:00 03/27/25 02:59 03/21/25 17:12 1 TAB Promethazine HCl (Phenergan) 25 mg AD PRN IM NAUSEA/VOMITING 03/19/25 11:30 03/20/25 08:26 DC Sodium Chloride 1,000 ml @ 100 mls/hr Q10H IV 03/18/25 18:30 04/17/25 18:29 03/20/25 02:06 100 MLS/HR Vancomycin HCl 250 ml @ 125 mls/hr Q12H IV 03/19/25 08:00 03/22/25 10:30 DC 03/22/25 08:50 125 MLS/HR Vancomycin HCl 250 ml @ 125 mls/hr Q12H IV 03/22/25 20:00 04/01/25 19:59 Vancomycin HCl (Vancomycin Protocol) 1 each AD IV 03/18/25 18:30 04/01/25 18:29 DIAGNOSTICS / RADIOLOGY: [ ] ASSESSMENT: Status post I&D of left anterior chest wall abscess, secondary to cellulitis. Sepsis, improving. Leukocytosis, downtrending. Obesity (BMI 41.4). Hypoalbuminemia PLAN: Patient's culture of the wound is growing MRSA. As per ID continue vancomycin and patient will also need a midline. Patient will be referred to [facility]. Case management consulted. We will continue to monitor patient in the meantime. A.m. labs. Continue pain management as tolerated. Monitor wound site for signs of recurrent infection or drainage. Infectious Disease consultated Monitor for clinical improvement and adjust management as needed. Continue to monitor hemodynamic status and laboratory trends. Advance care planning previously discussed; no new updates at this time. ATTESTATION BY PHYSICIAN I have seen and examined the patient. I reviewed the documentation, medical decision making, and treatment plan as noted by the mid-level provider above. I agree with the findings and plan of care. RUBIN ORONA MD ATTESTATION BY PHYSICIAN I have seen and examined the patient. I reviewed the documentation, medical decision making, and treatment plan as noted by the mid-level provider above. I agree with the findings and plan of care. RUBIN ORONA MD, [facility] Mar 22, 2025 14:28
--- NOTE | 2025-03-22 14:43 | NUR ---
SW met with pt at his request to complete a MPOA. Pt assisgned his daughter aKia Scott to be his MPOA, forms signed and a copy was placed in his chart.
[2025-03-22] MEDS: PoTASSium chloRIDE 20MEQ ER 20 MEQ ERTAB PO ONE ×2 (15:18→20:25)
[2025-03-22] MEDS: MAGNESIUM 2GM PREMIX 50ML 50 ML IV SCH (15:19)
[2025-03-22 16:00] VITALS: BP 131/80; PULSE 83; RESP 17; TEMP 98
--- NOTE | 2025-03-22 18:45 | NUR ---
WOUND CARE CLEANSED WOUND WITH NS. PAT DRY. PACKED WITH IODOFOAM. APPLIED 4X4 SECURED WITH ABDOMINAL PAD AND OPTIFOAM TAPE. PATIENT TOLERATED WELL.
[2025-03-22 20:00] VITALS: BP 139/91; PULSE 76; RESP 20; TEMP 98; O2SAT 95
[2025-03-22] MEDS: VANCOMYCIN 1.5 GM/250 ML BAG 250 ML IV SCH (21:38)
[2025-03-23] VITALS: BP 125/74; PULSE 72; RESP 20; TEMP 98.1
[2025-03-23 04:00] VITALS: BP 123/74; PULSE 69; RESP 22; TEMP 97.9
[2025-03-23 04:48] LABS: IMMATURE GRANULOCYTE ABSOLUTE 0.06 K/uL (0-1); NUCLEATED RED BLOOD CELLS 0.0 % (0.0-0.19); PLATELET COUNT (AUTO) 315 K/uL (130-400); RED BLOOD CELL COUNT(AUTO) 3.98 MIL/uL (4.50-6.20); RED CELL DISTRIBUTION WIDTH 11.9 % (11.0-15.5); WHITE BLOOD COUNT (AUTO) 13.8 K/uL (4.8-10.8)
[2025-03-23 05:18] LABS: ASPARTATE AMINOTRANSFERASE 17.0 U/L (10-37); CREATININE 1.1 mg/dL (0.5-1.3); GLOMERULAR FILTR. RATE CALC 79.0 mL/min (>90); GLUCOSE,RANDOM 130.0 mg/dL (70-105); SODIUM SERUM 142.0 mmol/L (136-145); TOTAL PROTEIN, SERUM 6.7 g/dL (6.0-8.3); UREA NITROGEN, BLOOD 13.0 mg/dL (7-18)
[2025-03-23 08:36] VITALS: BP 149/88; PULSE 70; RESP 16; TEMP 96.3
[2025-03-23 10:15] VITALS: O2SAT 96
[2025-03-23 14:02] LABS: INR 1.04 (0.85-1.15)
--- NOTE | 2025-03-23 14:54 | PN ---
[facility] PROGRESS NOTE Date of Service: Mar 23, 2025 Time of Service: 14:52 Attending doctor Shade SUBJECTIVE: 03/18/25 54-year-old male with no significant past medical history presented to the hospital secondary to pain in the left lateral aspect of the chest wall. The patient states around two days ago he noted a small induration on the left anterior lateral aspect of the chest wall. The area was getting progressively indurated with increasing pain with movement of the shoulder and chest. He noted redness on the chest area. Denied any drainage from the area. Denied any insect bites, any cuts, scrapes to the chest wall. Patient is unsure if he had a rash present. Denied any chest pain, abdominal pain, nausea, vomiting. He noted he was having fevers today. Denied any nausea, vomiting. He currently does not take any medications at home. Denied any previous history of skin absc ess. Patient thereafter went to [facility] for further evaluation. Patient was transferred from [facility] to [facility] due to concern for chest wall cellulitis with associated abscess. Labs in [facility] showed white count of 15.1, hemoglobin was 13.9, platelet count was 226 K, sodium was 134, potassium was 4.5, chloride was 107, bicarb was 31 , blood glucose was 114 Patient underwent a ultrasound which showed a two subcutaneous lesions with echogenic center and anechoic rims. This was concerning for possible early abscess versus infected sebaceous cyst. 03/19/25 Patient evaluated in PACU, status post incision and drainage (I&D) of left anterior chest wall abscess. He currently has no complaints. Reports adequate pain control and is tolerating pain management regimen. No new symptoms reported. 03/20/25 patient was seen by nurse practitioner and physician during rounding in room 427. Patient is s/p I and D with Dr. Wen on 03/19/2025. Patient continues to be on Flagyl cefepime and vancomycin. ID consulted for IV antibiotic treatment. Cultures growing Gram-positive cocci. Patient is complaining of the right wrist swelling. Right wrist x-ray and right wrist ultrasound Doppler was ordered. We will continue to monitor patient in the meantime. A.m. labs. 03/21/25 patient was seen by nurse practitioner physician during rounding in room 4. WBC 9.6. Patient continues to be on vanco, cefepime and Flagyl as per ID. Wound culture is growing Gram-positive cocci. Patient was also complaining yesterday regarding that right wrist pain. Wrist x-ray showed no acute osseous abnormality of the right scaphoid or wrist. Venous Doppler showed thrombosis of the right cephalic vein at the antecubital suck consistent with a superficial venous thrombosis no evidence of DVT. Patient to elevate the hand and apply hot packs. Potassium today is 3.4 patient will receive 40 mEq x2 of potassium. We will continue to monitor patient in the meantime. A.m. labs. 03/22/25 patient was seen nurse practitioner physician during rounding in room 427. Patient's culture of the wound is growing MRSA. As per ID continue van comycin and patient will also need a midline. Patient will be referred to [facility]. Case management consulted. We will continue to monitor patient in the meantime. A.m. labs. 03/23/25 patient was seen by [employer] and physician. Final culture grew MRSA as per ID continue vancomycin. Patient is pending midline placement as per ID. Patient is pending house placement was. Discharge medications S[employer] chart. The patient in the meantime. A.m. labs. REVIEW OF SYSTEMS CONSTITUTIONAL: Denies fevers, chills, or night sweats. No unintentional weight loss reported. NEUROLOGICAL: Denies headache, amaurosis fugax, motor weakness, sensory deficit, vertigo/spinning sensation, gait abnormalities, or tremors. ENT: No hearing loss, otalgia, otorrhea, rhinitis, rhinorrhea, hoarseness, or sore throat. CARDIOVASCULAR: Denies any exertional angina, dyspnea on exertion, orthopnea, paroxysmal nocturnal dyspnea, palpitations, life-threatening arrhythmias, claudication. PULMONARY: Denies any shortness of breath, cough, phlegm/sputum, hemoptysis, pleuritic chest pain. GASTROINTESTINAL: Denies any type of dysphagia to either liquids or solids. Denies nausea, vomiting, pyrosis, early satiety, abdominal pain, diarrhea, constipation, or changes in stool consistency or caliber. Denies coffee-ground emesis, hematemesis, hematochezia, or melanotic stools. GENITOURINARY: Denies frequency, urgency, nocturia, hematuria or incontinence (Storage/Irritative symptoms.) Low urinary stream, straining to void, urinary intermittency or hesitancy, splitting of the voiding stream, terminal dribbling. ENDOCRINOLOGIC: Denies polyuria, polydipsia, polyphagia or heat/cold intolerances. HEMATOLOGIC: Denies thrombophilia/previous clots, or coagulopathy/bleeding disorders. ONCOLOGIC: Denies personal history of malignancy. DERMATOLOGIC: Positive Erythema and swelling on the left anterior chest wall area..improved PSYCHIATRIC: Denies any suicidal or homicidal ideation. Denies hallucinations. PHYSICAL EXAM GENERAL APPEARANCE: The patient is awake, alert, and oriented, in no acute cardiopulmonary distress. NEUROLOGICAL: Cranial nerves II-XII grossly intact. Motor is 5/5 in bilateral upper and lower extremities proximal to distal. No sensory deficits. HEENT: Face is symmetric. Pupils are equal and reactive. Extraocular movements are intact. NECK: Supple. No JVD. No thyromegaly. No submental, submandibular, pre- /postauricular, occipital or supraclavicular lymphadenopathy. CHEST: Normal chest expansion. No Telemetry. On the left lateral anterior aspect of the chest wall. There is significant induration which is tender to palpation there is a small open wound which is not draining anything. There is associated erythema on the left chest wall area. No redness in the arm LUNGS: Absence of any rales, rhonchi or any wheezing. CARDIOVASCULAR: Regular. S1 and S2 normal. No appreciable rubs, murmurs or gallops. ABDOMEN: Soft, nontender, and nondistended. There is no rebound, voluntary guarding, or rigidity. : Deferred. No Berger. EXTREMITIES: Non-edematous and not cyanotic. No clubbing. Good capillary refill. SKIN: Erythema and induration on the left lateral anterior chest wall area Vital Signs (last 8hr) Date Time Temp Pulse Resp B/P (MAP) Pulse Ox O2 Delivery O2 Flow Rate FiO2 03/23/25 08:36 96.3 70 16 149/88 97 Room Air LABS: Laboratory: Test 03/23/25 13:38 03/23/25 04:33 03/22/25 06:33 Range/Units Prothrombin Time 11.0 9.6-11.6 SEC Prothromb Time International Ratio 1.04 0.85-1.15 Activated Partial Thromboplast Time 26.9 26.3-35.5 SEC White Blood Count 13.8 H 4.8-10.8 K/uL Red Blood Count 3.98 L 4.50-6.20 MIL/uL Hemoglobin 12.5 L 14.0-18.0 g/dL Hematocrit 36.4 L 42-54 % Mean Corpuscular Volume 91.5 79-99 fL Mean Corpuscular Hemoglobin 31.4 27.0-33.0 pg Mean Corpuscular Hemoglobin Concent 34.3 32.0-36.0 g/dL Red Cell Distribution Width 11.9 11.0-15.5 % Platelet Count 315 130-400 K/uL Mean Platelet Volume 10.3 7.5-10.5 fL Immature Granulocyte % (Auto) 0.4 0-1 % Neutrophils (%) (Auto) 82.5 H 40.0-77.0 % Lymphocytes (%) (Auto) 10.6 L 21.0-51.0 % Monocytes (%) (Auto) 6.2 3.0-13.0 % Eosinophils (%) (Auto) 0.1 0.0-8.0 % Basophils (%) (Auto) 0.2 0.0-5.0 % Neutrophils # (Auto) 11.4 H 1.8-7.7 K/uL Lymphocytes # (Auto) 1.5 1.0-4.8 K/uL Monocytes # (Auto) 0.9 0.1-1.0 K/uL Eosinophils # (Auto) 0.01 0.00-0.70 K/uL Basophils # (Auto) 0.03 0.00-0.20 K/uL Absolute Immature Granulocyte (auto 0.06 0-1 K/uL Nucleated Red Blood Cells 0.0 0.0-0.19 % Sodium Level 142 136-145 mmol/L Potassium Level 5.1 3.5-5.1 mmol/L Chloride Level 106 101-111 mmol/L Carbon Dioxide Level 31 21-32 mmol/L Blood Urea Nitrogen 13 7-18 mg/dL Creatinine 1.1 0.5-1.3 mg/dL Glomerular Filtration Rate Calc 79 >90 mL/min Random Glucose 130 H 70-105 mg/dL Total Calcium 8.7 8.5-10.1 mg/dL Magnesium Level 2.50 H 1.80-2.40 mg/dL Total Bilirubin 0.3 0.2-1.0 mg/dL Aspartate Amino Transf (AST/SGOT) 17 10-37 U/L Alanine Aminotransferase (ALT/SGPT) 31 12-78 U/L Alkaline Phosphatase 77 50-136 U/L Total Protein 6.7 6.0-8.3 g/dL Albumin 2.4 L 3.5-5.0 g/dL Vancomycin Level Trough 9.9 L 10.0-20.0 UG/ML Current Medications Medications (Trade) Dose Ordered Sig/Dino Route PRN Reason Start Time Stop Time Status Last Admin Dose Admin Cefepime HCl (MAXipime 1 GM vial) 1 gm Q8H IVPB 03/19/25 01:00 03/18/25 23:58 DC Cefepime HCl (MAXipime 1 GM vial) 1 gm Q8H IVPB 03/19/25 02:00 03/21/25 11:56 DC 03/21/25 10:53 1 GM Cefepime HCl (MAXipime 1 GM vial) 1 gm Q8H IVPB 03/18/25 18:30 03/18/25 18:26 DC Enoxaparin Sodium (Lovenox) 40 mg DAILY SQ 03/21/25 09:00 04/20/25 08:59 03/23/25 10:17 40 MG Famotidine (Pepcid 20mg Vial) 20 mg BID IV 03/18/25 21:00 04/17/25 20:59 03/23/25 10:16 20 MG Famotidine (Pepcid 20mg Vial) 20 mg DAILY IV 03/19/25 09:00 03/18/25 18:37 DC Fentanyl Citrate (FENTanyl CITRate PF 50 MCG/ 1 ML 2ML VIAL) 25 mcg Q5MIN PRN IVP PAIN LEVEL 7 TO 10 03/19/25 11:30 03/20/25 03:07 DC Hydralazine HCl (APRESOLine 20MG INJ) 10 mg Q6H PRN IV For:SBP above 160;DBP above 90 03/18/25 18:30 04/17/25 18:29 Hydromorphone HCl (DiLAUDid 1MG INJ) 1 mg Q4H PRN IVP SEVERE PAIN (7-10) 03/20/25 03:00 03/25/25 02:59 03/20/25 18:25 1 MG Indomethacin (Indocin) 50 mg TID PO 03/21/25 21:00 04/20/25 20:59 03/23/25 14:06 50 MG Ketorolac Tromethamine (toRADol) 15 mg Q4HPRN PRN IV MODERATE PAIN (4-6) 03/20/25 19:30 03/23/25 06:58 DC 03/21/25 19:49 15 MG Ketorolac Tromethamine (toRADol) 15 mg Q6H PRN IV MILD PAIN (1-3) 03/18/25 18:30 03/20/25 19:23 DC 03/18/25 20:56 15 MG Ketorolac Tromethamine (toRADol) 30 mg AD PRN IV MODERATE PAIN (4-6) 03/19/25 11:30 03/20/25 08:26 DC Lactated Ringer's 1,000 ml @ 75 mls/hr [id number] IV 03/18/25 18:30 03/18/25 18:51 DC Magnesium Sulfate 50 ml @ 0 mls/hr PROTOCOL IV 03/22/25 14:30 04/21/25 14:29 03/22/25 15:19 25 MLS/HR Metoclopramide HCl (regLAN 10MG IV) 10 mg AD PRN IVP NAUSEA/VOMITING 03/19/25 11:30 03/20/25 08:26 DC Metronidazole/ Sodium Chloride 100 ml @ 100 mls/hr Q8H6 IVPB 03/19/25 01:00 03/19/25 22:05 DC 03/19/25 18:32 100 MLS/HR Metronidazole/ Sodium Chloride 100 ml @ 100 mls/hr Q8H6 IVPB 03/20/25 02:30 03/20/25 19:03 DC 03/20/25 06:34 100 MLS/HR Metronidazole/ Sodium Chloride 100 ml @ 100 mls/hr Q8H6 IVPB 03/18/25 23:00 03/18/25 23:57 DC Morphine Sulfate (morPHINE 2MG SYG) 2 mg AD PRN IVP PAIN LEVEL 4 TO 6 03/19/25 11:30 03/20/25 03:05 DC Morphine Sulfate (morPHINE 2MG SYG) 2 mg Q4H PRN IVP SEVERE PAIN (7-10) 03/18/25 18:30 03/20/25 03:06 DC Morphine Sulfate (morPHINE 4MG SYG) 4 mg Q4H PRN IVP SEVERE PAIN (7-10) 03/18/25 18:30 03/18/25 18:37 DC Naloxone HCl (NARcan 0.4mg/1 mL) 0.1 mg AD PRN IVP RESPIRATORY SYMPTOMS 03/19/25 11:30 03/20/25 08:26 DC Ondansetron HCl (zoFRAN 4MG INJ) 4 mg AD PRN IVP NAUSEA/VOMITING 03/19/25 11:30 03/20/25 08:26 DC Ondansetron HCl (zoFRAN 4MG INJ) 4 mg Q6H PRN IV NAUSEA/VOMITING 03/18/25 18:30 04/17/25 18:29 Oxycodone/ Acetaminophen (perCOCET) 1 tab Q4H PRN PO MODERATE PAIN (4-6) 03/20/25 03:00 03/27/25 02:59 03/22/25 16:50 1 TAB Promethazine HCl (Phenergan) 25 mg AD PRN IM NAUSEA/VOMITING 03/19/25 11:30 03/20/25 08:26 DC Sodium Chloride 1,000 ml @ 100 mls/hr Q10H IV 03/18/25 18:30 04/17/25 18:29 03/22/25 21:53 100 MLS/HR Vancomycin HCl 250 ml @ 125 mls/hr Q12H IV 03/19/25 08:00 03/22/25 10:30 DC 03/22/25 08:50 125 MLS/HR Vancomycin HCl 250 ml @ 125 mls/hr Q12H IV 03/22/25 20:00 04/01/25 19:59 03/23/25 10:16 125 MLS/HR Vancomycin HCl (Vancomycin Protocol) 1 each AD IV 03/18/25 18:30 04/01/25 18:29 DIAGNOSTICS / RADIOLOGY: [ ] ASSESSMENT: Status post I&D of left anterior chest wall abscess, secondary to cellulitis. final culture grew MRSA Sepsis, improving. Leukocytosis, downtrending. Obesity (BMI 41.4). Hypoalbuminemia PLAN: Final culture grew MRSA as per ID continue vancomycin. Patient is pending midline placement as per ID. Patient is pending house placement was. Discharge medications S[employer] chart. The patient in the meantime. A.m. labs. Continue pain management as tolerated. Monitor wound site for signs of recurrent infection or drainage. Monitor for clinical improvement and adjust management as needed. Continue to monitor hemodynamic status and laboratory trends. Advance care planning previously discussed; no new updates at this time. ATTESTATION BY PHYSICIAN I have seen and examined the patient. I reviewed the documentation, medical decision making, and treatment plan as noted by the mid-level provider above. I agree with the findings and plan of care. RUBIN ORONA MD, [facility] Mar 23, 2025 14:54
--- NOTE | 2025-03-23 15:08 | PN ---
INFECTIOUS DISEASE PROGRESS NOTE Date of Service: Mar 23, 2025 SUBJECTIVE: This is a 54-year-old male patient who was seen and examined at bedside in room 427. Patient is status post incision and drainage of the left lateral chest wall abscess on 03/19/2025. WBC is slightly elevated at 13.8 but remains afebrile, temperature is 96.3. Case management working on SNF placement. We will place midline. PHYSICAL EXAM EYES: Anicteric. Pupils equal and reactive. HENT: No oral thrush seen, moist Oral mucosa. NECK: Supple, no JVD or thyromegaly. LUNGS: Good air entry. No rales, no rhonchi. CHEST: Left chest wall Abscess/ s/p I/D. CARDIOVASCULAR: S1, S2 regular. No murmur heard. ABDOMEN: Soft, non tender, bowel sounds present. Obese. CENTRAL NERVOUS SYSTEM: Awake, alert, oriented x 3. SKIN: No rashes, no swelling. LYMPHATICS: No peripheral lymphadenopathy. MUSCULOSKELETAL: No joint swelling, erythema or tenderness. EXTREMITIES: No cyanosis or clubbing. Right upper extremity superficial venous thrombosis of the right cephalic vein. BACK: No deformity, no pressure ulcer. GENITOURINARY: No dysuria or hematuria. Vital Sign (Last 12 Hours) 03/23/25 03/23/25 04:00 08:36 Temp 97.9 96.3 Pulse 69 70 Resp 22 16 B/P (MAP) 123/74 149/88 Pulse Ox 96 97 O2 Delivery Room Air Room Air Intake & Output (last 24hrs) 03/22/25 03/22/25 03/23/25 15:00 23:00 07:00 Intake Total 250.0 ml 1200.0 ml Balance 250.0 ml 1200.0 ml LABS: Laboratory: Test 03/23/25 13:38 03/23/25 04:33 03/22/25 06:33 Range/Units Prothrombin Time 11.0 9.6-11.6 SEC Prothromb Time International Ratio 1.04 0.85-1.15 Activated Partial Thromboplast Time 26.9 26.3-35.5 SEC White Blood Count 13.8 H 4.8-10.8 K/uL Red Blood Count 3.98 L 4.50-6.20 MIL/uL Hemoglobin 12.5 L 14.0-18.0 g/dL Hematocrit 36.4 L 42-54 % Mean Corpuscular Volume 91.5 79-99 fL Mean Corpuscular Hemoglobin 31.4 27.0-33.0 pg Mean Corpuscular Hemoglobin Concent 34.3 32.0-36.0 g/dL Red Cell Distribution Width 11.9 11.0-15.5 % Platelet Count 315 130-400 K/uL Mean Platelet Volume 10.3 7.5-10.5 fL Immature Granulocyte % (Auto) 0.4 0-1 % Neutrophils (%) (Auto) 82.5 H 40.0-77.0 % Lymphocytes (%) (Auto) 10.6 L 21.0-51.0 % Monocytes (%) (Auto) 6.2 3.0-13.0 % Eosinophils (%) (Auto) 0.1 0.0-8.0 % Basophils (%) (Auto) 0.2 0.0-5.0 % Neutrophils # (Auto) 11.4 H 1.8-7.7 K/uL Lymphocytes # (Auto) 1.5 1.0-4.8 K/uL Monocytes # (Auto) 0.9 0.1-1.0 K/uL Eosinophils # (Auto) 0.01 0.00-0.70 K/uL Basophils # (Auto) 0.03 0.00-0.20 K/uL Absolute Immature Granulocyte (auto 0.06 0-1 K/uL Nucleated Red Blood Cells 0.0 0.0-0.19 % Sodium Level 142 136-145 mmol/L Potassium Level 5.1 3.5-5.1 mmol/L Chloride Level 106 101-111 mmol/L Carbon Dioxide Level 31 21-32 mmol/L Blood Urea Nitrogen 13 7-18 mg/dL Creatinine 1.1 0.5-1.3 mg/dL Glomerular Filtration Rate Calc 79 >90 mL/min Random Glucose 130 H 70-105 mg/dL Total Calcium 8.7 8.5-10.1 mg/dL Magnesium Level 2.50 H 1.80-2.40 mg/dL Total Bilirubin 0.3 0.2-1.0 mg/dL Aspartate Amino Transf (AST/SGOT) 17 10-37 U/L Alanine Aminotransferase (ALT/SGPT) 31 12-78 U/L Alkaline Phosphatase 77 50-136 U/L Total Protein 6.7 6.0-8.3 g/dL Albumin 2.4 L 3.5-5.0 g/dL Vancomycin Level Trough 9.9 L 10.0-20.0 UG/ML ASSESSMENT: Left lateral chest wall abscess, s/p incision and drainage on 03/19/2025. Infection with Methicillin-Resistant Staphylococcus Aureus. Chest wall Cellulitis. Leukocytosis. Former smoker. Gout. Morbid Obesity. Superficial venous thrombosis of the right cephalic vein. PLAN: Place midline. Continue vancomycin per pharmacy protocol. Continue GI prophylaxis. Continue Lovenox. Continue Wound care as recommended by General surgeon. Continue pain management. Case management working on SNF placement. This case was reviewed and discussed with my supervising physician Dr. Gomez and the above assessment and plan was formulated and agreed upon. ATTESTATION BY PHYSICIAN I have seen and examined the patient. I reviewed the documentation, medical decision making, and treatment plan as noted by the mid-level provider above. I agree with the findings and plan of care. ABDIRAHMAN GOMEZ MD, [facility] Mar 23, 2025 15:08
--- NOTE | 2025-03-23 15:20 | NUR ---
MIDLINE MIDLINE PLACED IN LEFT UPPER ARM. PATIENT RESPONDED WELL TO PROCEDURE, NO DISTRESS NOTED.
[2025-03-23 16:00] VITALS: BP 163/74; PULSE 68; RESP 16; TEMP 98.2
--- NOTE | 2025-03-23 16:31 | PN ---
PROGRESS NOTE Date of Service: Mar 23, 2025 Time of Service: 16:30 SUBJECTIVE: [ ] REVIEW OF SYSTEMS CONSTITUTIONAL: Denies fever, chills, or fatigue. HEAD/FACE: No signs of trauma. EENT: Denies eye pain, blurred vision, double vision, or light sensitivity. RESPIRATORY: Denies shortness of breath, cough, wheezing CARDIOVASCULAR: Denies chest pain, palpitation, syncope GASTROINTESTINAL/ABDOMINAL: Denies abdominal pain, constipation, diarrhea, nausea or vomiting GENITOURINARY: Denies dysuria or hematuria. MUSCULOSKELETAL: Denies joint pain, tenderness, or trauma. INTEGUMENTARY: Denies rash or itchiness NEUROLOGICAL/PSYCH: Denies anxiety, depression, heat or cold intolerance. PHYSICAL EXAM EYES: Anicteric. Pupils equal and reactive. HENT: No oral thrush seen, moist Oral mucosa NECK: Supple, no JVD or thyromegaly. LUNGS: Good air entry. No rales, no rhonchi. CARDIOVASCULAR: S1, S2 regular. No murmur heard. ABDOMEN: Soft, non tender, bowel sounds present, no organomegaly CENTRAL NERVOUS SYSTEM: Awake, alert, oriented x 3. No focal deficits. SKIN: No rashes, no swelling. LYMPHATICS: No peripheral lymphadenopathy MUSCULOSKELETAL: No joint swelling, erythema or tenderness. EXTREMITIES: No cyanosis or clubbing BACK: No deformity, no pressure ulcer. GENITOURINARY: No dysuria or hematuria Vital Signs (last 8hr) Date Time Temp Pulse Resp B/P (MAP) Pulse Ox O2 Delivery O2 Flow Rate FiO2 03/23/25 08:36 96.3 70 16 149/88 97 Room Air LABS: Laboratory: Test 03/23/25 13:38 03/23/25 04:33 03/22/25 06:33 Range/Units Prothrombin Time 11.0 9.6-11.6 SEC Prothromb Time International Ratio 1.04 0.85-1.15 Activated Partial Thromboplast Time 26.9 26.3-35.5 SEC White Blood Count 13.8 H 4.8-10.8 K/uL Red Blood Count 3.98 L 4.50-6.20 MIL/uL Hemoglobin 12.5 L 14.0-18.0 g/dL Hematocrit 36.4 L 42-54 % Mean Corpuscular Volume 91.5 79-99 fL Mean Corpuscular Hemoglobin 31.4 27.0-33.0 pg Mean Corpuscular Hemoglobin Concent 34.3 32.0-36.0 g/dL Red Cell Distribution Width 11.9 11.0-15.5 % Platelet Count 315 130-400 K/uL Mean Platelet Volume 10.3 7.5-10.5 fL Immature Granulocyte % (Auto) 0.4 0-1 % Neutrophils (%) (Auto) 82.5 H 40.0-77.0 % Lymphocytes (%) (Auto) 10.6 L 21.0-51.0 % Monocytes (%) (Auto) 6.2 3.0-13.0 % Eosinophils (%) (Auto) 0.1 0.0-8.0 % Basophils (%) (Auto) 0.2 0.0-5.0 % Neutrophils # (Auto) 11.4 H 1.8-7.7 K/uL Lymphocytes # (Auto) 1.5 1.0-4.8 K/uL Monocytes # (Auto) 0.9 0.1-1.0 K/uL Eosinophils # (Auto) 0.01 0.00-0.70 K/uL Basophils # (Auto) 0.03 0.00-0.20 K/uL Absolute Immature Granulocyte (auto 0.06 0-1 K/uL Nucleated Red Blood Cells 0.0 0.0-0.19 % Sodium Level 142 136-145 mmol/L Potassium Level 5.1 3.5-5.1 mmol/L Chloride Level 106 101-111 mmol/L Carbon Dioxide Level 31 21-32 mmol/L Blood Urea Nitrogen 13 7-18 mg/dL Creatinine 1.1 0.5-1.3 mg/dL Glomerular Filtration Rate Calc 79 >90 mL/min Random Glucose 130 H 70-105 mg/dL Total Calcium 8.7 8.5-10.1 mg/dL Magnesium Level 2.50 H 1.80-2.40 mg/dL Total Bilirubin 0.3 0.2-1.0 mg/dL Aspartate Amino Transf (AST/SGOT) 17 10-37 U/L Alanine Aminotransferase (ALT/SGPT) 31 12-78 U/L Alkaline Phosphatase 77 50-136 U/L Total Protein 6.7 6.0-8.3 g/dL Albumin 2.4 L 3.5-5.0 g/dL Vancomycin Level Trough 9.9 L 10.0-20.0 UG/ML DIAGNOSTICS / RADIOLOGY: [ ] PROBLEM LIST : Unspecified open wound of left front wall of thorax without penetration into thoracic cavity, initial encounter PLAN: Wound care to left lateral chest wall: Cleanse with normal saline, pat dry, lightly pack with 1/2 inch iodoform packing strip, cover with gauze, secure with tape change daily and prn Keep wounds clean and dry Offloading/reposition q 2 hours Continue IV antibiotics per ID Comorbidities per primary care team Further Management per hospital course. Thank You for the consult and allowing us to participate in the care of this patient. FRANCINE GODOY RADIOLOGY INTERVENTIONAL PHYSICIAN Mar 23, 2025 16:31
--- NOTE | 2025-03-23 17:49 | PN ---
GENERAL SURGERY PROGRESS NOTE DATE OF SERVICE: Mar 23, 2025 TIME OF SERVICE: 17:49 No new issues Pain is better PROBLEM LISTS: [ ] Left chest wall cellulitis and abscess S/p I&D INTERVAL HISTORY: [ ] Doing well PHYSICAL EXAMINATION: GENERAL: [Patient is lying comfortably in bed, not in any obvious distress.] HEAD: [Normal with no signs of head trauma.] EYES: [Not pale not jaundiced afebrile to touch.] ENT: [ Normal.] NECK: [Supple,no tenderness,no lymphadenopathy,no masses,no thyromegaly ,no bruits, no JVD.] LUNGS: [Clear breath sounds bilaterally. No wheezes, rales, or rhonchi.] Left chest wall dressings in place hardness and erythema much better HEART: [Regular rate and rhythm. Normal S1 and S2, without murmurs, rub or gallop.] VASC: [No edema. Peripheral pulses normal and equal in all extremities.] ABD: [Benign : [Normal, no suprapubic tenderness.] LYMPH: [No lymphadenopathy noted.] EXT: [ Warm soft, non tender.] SKIN: [ No rashes or lesions.] NEURO: [ Awake Alert and oriented x3.] LABORATORY: [ ] Hematology Labs: Test 03/23/25 04:33 Range/Units White Blood Count 13.8 H 4.8-10.8 K/uL Red Blood Count 3.98 L 4.50-6.20 MIL/uL Hemoglobin 12.5 L 14.0-18.0 g/dL Hematocrit 36.4 L 42-54 % Mean Corpuscular Volume 91.5 79-99 fL Mean Corpuscular Hemoglobin 31.4 27.0-33.0 pg Mean Corpuscular Hemoglobin Concent 34.3 32.0-36.0 g/dL Red Cell Distribution Width 11.9 11.0-15.5 % Platelet Count 315 130-400 K/uL Mean Platelet Volume 10.3 7.5-10.5 fL Immature Granulocyte % (Auto) 0.4 0-1 % Neutrophils (%) (Auto) 82.5 H 40.0-77.0 % Lymphocytes (%) (Auto) 10.6 L 21.0-51.0 % Monocytes (%) (Auto) 6.2 3.0-13.0 % Eosinophils (%) (Auto) 0.1 0.0-8.0 % Basophils (%) (Auto) 0.2 0.0-5.0 % Neutrophils # (Auto) 11.4 H 1.8-7.7 K/uL Lymphocytes # (Auto) 1.5 1.0-4.8 K/uL Monocytes # (Auto) 0.9 0.1-1.0 K/uL Eosinophils # (Auto) 0.01 0.00-0.70 K/uL Basophils # (Auto) 0.03 0.00-0.20 K/uL Absolute Immature Granulocyte (auto 0.06 0-1 K/uL Nucleated Red Blood Cells 0.0 0.0-0.19 % Chemistry Labs: Test 03/23/25 04:33 Range/Units Sodium Level 142 136-145 mmol/L Potassium Level 5.1 3.5-5.1 mmol/L Chloride Level 106 101-111 mmol/L Carbon Dioxide Level 31 21-32 mmol/L Blood Urea Nitrogen 13 7-18 mg/dL Creatinine 1.1 0.5-1.3 mg/dL Glomerular Filtration Rate Calc 79 >90 mL/min Random Glucose 130 H 70-105 mg/dL Total Calcium 8.7 8.5-10.1 mg/dL Magnesium Level 2.50 H 1.80-2.40 mg/dL Total Bilirubin 0.3 0.2-1.0 mg/dL Aspartate Amino Transf (AST/SGOT) 17 10-37 U/L Alanine Aminotransferase (ALT/SGPT) 31 12-78 U/L Alkaline Phosphatase 77 50-136 U/L Total Protein 6.7 6.0-8.3 g/dL Albumin 2.4 L 3.5-5.0 g/dL Coagulation Labs: Test 03/23/25 13:38 Range/Units Prothrombin Time 11.0 9.6-11.6 SEC Prothromb Time International Ratio 1.04 0.85-1.15 Activated Partial Thromboplast Time 26.9 26.3-35.5 SEC DIAGNOSTICS / RADIOLOGY: [Copy/Paste Echos/Imaging Report here] ASSESSMENT: [] S/p I&D left chest wall cellulitis and abscess PLAN: Local wound care IV antibiotics DC planning MARINO MCCRAY MD Mar 23, 2025 17:49
--- NOTE | 2025-03-23 18:19 | NUR ---
Patient endorsed to nursing Will be removed from PT roster
[2025-03-23 20:00] VITALS: BP 156/80; PULSE 73; RESP 18; TEMP 98
[2025-03-24 00:34] VITALS: BP 139/93; PULSE 67; RESP 18
[2025-03-24 04:00] VITALS: BP 157/84; PULSE 70; RESP 18; TEMP 98
[2025-03-24 05:00] LABS: IMMATURE GRANULOCYTE ABSOLUTE 0.05 K/uL (0-1); NUCLEATED RED BLOOD CELLS 0.0 % (0.0-0.19); PLATELET COUNT (AUTO) 329 K/uL (130-400); RED BLOOD CELL COUNT(AUTO) 3.85 MIL/uL (4.50-6.20); RED CELL DISTRIBUTION WIDTH 12.0 % (11.0-15.5); WHITE BLOOD COUNT (AUTO) 8.5 K/uL (4.8-10.8)
[2025-03-24 05:18] LABS: ASPARTATE AMINOTRANSFERASE 22.0 U/L (10-37); CREATININE 1.0 mg/dL (0.5-1.3); GLOMERULAR FILTR. RATE CALC 88.0 mL/min (>90); GLUCOSE,RANDOM 97.0 mg/dL (70-105); SODIUM SERUM 142.0 mmol/L (136-145); TOTAL PROTEIN, SERUM 6.4 g/dL (6.0-8.3); UREA NITROGEN, BLOOD 16.0 mg/dL (7-18)
[2025-03-24 08:00] VITALS: BP 147/93; PULSE 76; RESP 20; TEMP 98
[2025-03-24 08:01] VITALS: O2SAT 97
[2025-03-24 12:00] VITALS: BP 159/109; PULSE 70; RESP 18; TEMP 97.8
--- NOTE | 2025-03-24 14:55 | NUR ---
REPORT GIVEN TO THOMAS RICHARDSON AT [facility] REGARDING PATIENT. VERBALIZED UNDERSTANDING. PATIENT PENDING VAN SR. MERCHANDISE PLANNER FROM [facility]. DISCHARGE INSTRUCTIONS GIVEN TO PATIENT REGARDING FOLLOW UP AND INSTRUCTIONS. PT VERBALIZED UNDERSTANDING. GOING WITH MIDLINE IN PLACE AND INTACT. Addendum: 03/24/25 at 1530 by RIAN LI LVN LVN PATIENT PICKED UP BY [facility]. IV CATHETER REMOVED AND INTACT. NO FURTHER COMMENTS.
--- NOTE | 2025-03-24 17:28 | PN ---
INFECTIOUS DISEASE PROGRESS NOTE Date of Service: Mar 24, 2025 SUBJECTIVE: This is a 54-year-old male patient who was seen at bedside in room 427. Patient is status post incision and drainage of the left lateral chest wall abscess on 03/19/2025. The WBC has trended down to 8.5 and remains afebrile. Patient has been approved to [facility] and being discharged today. Prescription for vancomycin 1.5 g every 12 hours was written and the midline has been placed. PHYSICAL EXAM EYES: Anicteric. Pupils equal and reactive. HENT: No oral thrush seen, moist Oral mucosa. NECK: Supple, no JVD or thyromegaly. LUNGS: Good air entry. No rales, no rhonchi. CHEST: Left chest wall Abscess/ s/p I/D. CARDIOVASCULAR: S1, S2 regular. No murmur heard. ABDOMEN: Soft, non tender, bowel sounds present. Obese. CENTRAL NERVOUS SYSTEM: Awake, alert, oriented x 3. SKIN: No rashes, no swelling. LYMPHATICS: No peripheral lymphadenopathy. MUSCULOSKELETAL: No joint swelling, erythema or tenderness. EXTREMITIES: No cyanosis or clubbing. Right upper extremity superficial venous thrombosis of the right cephalic vein. BACK: No deformity, no pressure ulcer. GENITOURINARY: No dysuria or hematuria. Vital Sign (Last 12 Hours) 03/24/25 03/24/25 03/24/25 08:00 08:01 12:00 Temp 98.1 97.9 Pulse 76 70 Resp 20 18 B/P (MAP) 147/93 159/109 Pulse Ox 97 97 96 O2 Delivery Room Air Room Air* Room Air O2 Flow Rate 0 FiO2 21 21 21 Intake & Output (last 24hrs) 03/23/25 03/23/25 03/24/25 15:00 23:00 07:00 Intake Total 980.0 ml 700.0 ml 1450.0 ml Balance 980.0 ml 700.0 ml 1450.0 ml LABS: Laboratory: Test 03/24/25 06:58 03/24/25 04:45 03/23/25 13:38 Range/Units Vancomycin Level Trough 16.3 # 10.0-20.0 UG/ML White Blood Count 8.5 4.8-10.8 K/uL Red Blood Count 3.85 L 4.50-6.20 MIL/uL Hemoglobin 12.2 L 14.0-18.0 g/dL Hematocrit 35.3 L 42-54 % Mean Corpuscular Volume 91.7 79-99 fL Mean Corpuscular Hemoglobin 31.7 27.0-33.0 pg Mean Corpuscular Hemoglobin Concent 34.6 32.0-36.0 g/dL Red Cell Distribution Width 12.0 11.0-15.5 % Platelet Count 329 130-400 K/uL Mean Platelet Volume 10.4 7.5-10.5 fL Immature Granulocyte % (Auto) 0.6 0-1 % Neutrophils (%) (Auto) 68.1 40.0-77.0 % Lymphocytes (%) (Auto) 19.8 L 21.0-51.0 % Monocytes (%) (Auto) 8.0 3.0-13.0 % Eosinophils (%) (Auto) 2.6 0.0-8.0 % Basophils (%) (Auto) 0.9 0.0-5.0 % Neutrophils # (Auto) 5.8 1.8-7.7 K/uL Lymphocytes # (Auto) 1.7 1.0-4.8 K/uL Monocytes # (Auto) 0.7 0.1-1.0 K/uL Eosinophils # (Auto) 0.22 0.00-0.70 K/uL Basophils # (Auto) 0.08 0.00-0.20 K/uL Absolute Immature Granulocyte (auto 0.05 0-1 K/uL Nucleated Red Blood Cells 0.0 0.0-0.19 % Sodium Level 142 136-145 mmol/L Potassium Level 4.0 3.5-5.1 mmol/L Chloride Level 107 101-111 mmol/L Carbon Dioxide Level 28 21-32 mmol/L Blood Urea Nitrogen 16 7-18 mg/dL Creatinine 1.0 0.5-1.3 mg/dL Glomerular Filtration Rate Calc 88 >90 mL/min Random Glucose 97 70-105 mg/dL Total Calcium 8.7 8.5-10.1 mg/dL Magnesium Level 2.00 1.80-2.40 mg/dL Total Bilirubin 0.3 0.2-1.0 mg/dL Aspartate Amino Transf (AST/SGOT) 22 10-37 U/L Alanine Aminotransferase (ALT/SGPT) 37 12-78 U/L Alkaline Phosphatase 73 50-136 U/L Total Protein 6.4 6.0-8.3 g/dL Albumin 2.4 L 3.5-5.0 g/dL Prothrombin Time 11.0 9.6-11.6 SEC Prothromb Time International Ratio 1.04 0.85-1.15 Activated Partial Thromboplast Time 26.9 26.3-35.5 SEC ASSESSMENT: Left lateral chest wall abscess, s/p incision and drainage on 03/19/2025. Infection with Methicillin-Resistant Staphylococcus Aureus. Chest wall Cellulitis. Leukocytosis. Former smoker. Gout. Morbid Obesity. Superficial venous thrombosis of the right cephalic vein. PLAN: Patient has been approved to [facility] and being discharged today. Prescription for vancomycin 1.5 g every 12 hours was written. Midline has been placed. This case was reviewed and discussed with my supervising physician Dr. Gomez and the above assessment and plan was formulated and agreed upon. ATTESTATION BY PHYSICIAN I have seen and examined the patient. I reviewed the documentation, medical decision making, and treatment plan as noted by the mid-level provider above. I agree with the findings and plan of care. ABDIRAHMAN GOMEZ MD, MIRTA L [facility] Mar 24, 2025 17:28
--- NOTE | 2025-03-24 18:58 | DS ---
Discharge Summary Hospital Course Summary: DATE OF ADMISSION:[03/18/2025] DATE OF DISCHARGE:[03/24/2025] DISPOSITION:[[facility]] CONDITION:[Medically stable] CONSULTANTS:[ginger PORTILLO General surgeon,wound care] FOLLOW UP APPOINTMENTS:[PCP 2 to 3 days. Surgeon within one week. Wound care with a follow] PROCEDURES:[I and D by Dr. Wen 03/19/2025] IMAGING: report attached to summary MICROBIOLOGY: report attached to summary ACTIVITY:[Requires one-person assist] HOME MEDICATIONS: see [facility] NEW MEDICATIONS:[All the medications were reconciled and continued from the hospital stage II [facility]] EMERGENCY INSTRUCTIONS: The patient was instructed to present to the nearest Emergency departmentr or call 911 once their symptoms will return or worsen Atmospheric Chemist(s): Patient is 54 years old no significant past medical history who came to emergency department secondary to the pain in the left lateral aspect chest wall. Patient stated that two days prior coming the hospital he noted a small induration of the left anterior lateral aspect chest wall. The area was getting progressively indurated with the increased pain with the movement of the shoulder and chest. He noted redness chest area. Patient denied any drainage from the patient also denied any insect bite any cuts scrapes to the chest wall . Patient underwent chest x-ray that showed no acute cardiopulmonary findings. Mild prominent cardio mediastinal silhouette. During hospitalization one of the IV infiltrated and patient was complaining of severe pain to the right upper extremity. Ultrasound venous Doppler showed thrombosis of the right cephalic vein at the antecubital fossa consistent with a superficial venous thrombosis. No evidence of DVT. X-ray of the right wrist showed no acute osseous abnormality of the right scaphoid or wrist. As later was found out patient had a gout and was started on appropriate medicine x5 days. On 03/19/2025 patient underwent I and D of the left anterior chest wall with Dr. Reynaga. Wound culture of the fluids that were withdrawal grew MRSA. ID was consulted and recommended that patient continues long-term IV antibiotics of cefepime and vancomycin. Case management was consulted for disposition to [facility] for wound care and long-term IV antibiotics. Today patient was approved and ready to be discharged. Patient is medically stable to be transferred. Patient to follow up with PCP in 2 to 3 days. Surgeon within one week. Wound care we will continue the [facility]. ID we will continue to follow at the [facility] Procedure(s): REVIEW OF SYSTEMS CONSTITUTIONAL: Denies fevers, chills, or night sweats. No unintentional weight loss reported. NEUROLOGICAL: Denies headache, amaurosis fugax, motor weakness, sensory deficit, vertigo/spinning sensation, gait abnormalities, or tremors. ENT: No hearing loss, otalgia, otorrhea, rhinitis, rhinorrhea, hoarseness, or s ore throat. CARDIOVASCULAR: Denies any exertional angina, dyspnea on exertion, orthopnea, paroxysmal nocturnal dyspnea, palpitations, life-threatening arrhythmias, claudication. PULMONARY: Denies any shortness of breath, cough, phlegm/sputum, hemoptysis, pleuritic chest pain. GASTROINTESTINAL: Denies any type of dysphagia to either liquids or solids. Denies nausea, vomiting, pyrosis, early satiety, abdominal pain, diarrhea, co nstipation, or changes in stool consistency or caliber. Denies coffee-ground emesis, hematemesis, hematochezia, or melanotic stools. GENITOURINARY: Denies frequency, urgency, nocturia, hematuria or incontinence (Storage/Irritative symptoms.) Low urinary stream, straining to void, urinary intermittency or hesitancy, splitting of the voiding stream, terminal dribbling. ENDOCRINOLOGIC: Denies polyuria, polydipsia, polyphagia or heat/cold intolerances. HEMATOLOGIC: Denies thrombophilia/previous clots, or coagulopathy/bleeding disorders. ONCOLOGIC: Denies personal history of malignancy. DERMATOLOGIC: Positive Erythema and swelling on the left anterior chest wall area..improved PSYCHIATRIC: Denies any suicidal or homicidal ideation. Denies hallucinations. PHYSICAL EXAM GENERAL APPEARANCE: The patient is awake, alert, and oriented, in no acute cardiopulmonary distress. NEUROLOGICAL: Cranial nerves II-XII grossly intact. Motor is 5/5 in bilateral upper and lower extremities proximal to distal. No sensory deficits. HEENT: Face is symmetric. Pupils are equal and reactive. Extraocular movements are intact. NECK: Supple. No JVD. No thyromegaly. No submental, submandibular, pre- /postauricular, occipital or supraclavicular lymphadenopathy. CHEST: Normal chest expansion. No Telemetry. On the left lateral anterior aspect of the chest wall. There is significant induration which is tender to palpation there is a small open wound which is not draining anything. There is associated erythema on the left chest wall area. No redness in the arm LUNGS: Absence of any rales, rhonchi or any wheezing. CARDIOVASCULAR: Regular. S1 and S2 normal. No appreciable rubs, murmurs or gallops. ABDOMEN: Soft, nontender, and nondistended. There is no rebound, voluntary guarding, or rigidity. : Deferred. No Berger. EXTREMITIES: Non-edematous and not cyanotic. No clubbing. Good capillary refill. SKIN: Erythema and induration on the left lateral anterior chest wall area Assessment/Plan: ASSESSMENT: Status post I&D of left anterior chest wall abscess, secondary to cellulitis. final culture grew MRSA S/p I and D 03/19/2025 with Sepsis, improving. Leukocytosis, downtrending. Obesity (BMI 41.4). Hypoalbuminemia Home Medications: Discontinued Scripts Naproxen Sodium (Naproxen Sodium) 550 Mg Tablet, 1 TAB PO BID for arthritis for 15 Days, #30 TAB 0 Refills Prov:CHRISTY GIBBS 11/08/24 Naproxen (Naproxen) 250 Mg Tablet, 1 TAB PO BID for pain for 15 Days, #30 TAB 0 Refills Prov:RICHELLE MARMOLEJO MD 06/19/24 Naproxen (Naproxen) 250 Mg Tablet, 250 MG PO BID for 5 Days, #10 TAB Prov:JOHN MARTINO MD 05/03/24 Colchicine (Colchicine) 0.6 Mg Capsule, 1 CAP PO DAILY for 30 Days, #30 CAP 0 Refills Prov:JOHN MARTINO MD 05/03/24 Indomethacin (Indomethacin) 50 Mg Capsule, 50 MG PO TID for gouty pain, #30 CAP Prov:LENNY GILL MD 12/29/23 Prednisone (Prednisone) 20 Mg Tablet, 20 MG PO DAILY for 5 Days, #5 TAB Prov:LENNY GILL MD 12/29/23 Colchicine (Colchicine) 0.6 Mg Tablet, 0.6 MG PO QID for gout pain, #30 TAB Prov:LENNY GILL MD 12/29/23 Prednisone (Prednisone) 5 Mg Tablet, 30 MG PO DAILY for 4 Days, #4 TAB 0 Refills Prov:JOSE DUNN [facility] 12/04/23 Allopurinol (Allopurinol) 100 Mg Tablet, 100 MG PO DAILY for 7 Days, #7 TAB 0 Refills Prov:JOSE DUNN [facility] 12/04/23 Methocarbamol (Robaxin) 750 Mg Tab, 750 MG PO BID for 5 Days, #10 TAB Prov:MAGGIE HERNANDEZ MD 11/29/23 Naproxen (Naproxen) 375 Mg Tablet.dr, 375 MG PO BID PRN for PAIN for 10 Days, #20 TAB Prov:MAGGIE HERNANDEZ MD 11/29/23 Amoxicillin/Potassium Clav (Amox Tr-K Clv 875-125 mg Tab) 1 Each Tablet, 1 EACH PO BID for 10 Days, #20 TAB Prov:LAURA COOK V [facility] 11/13/22 Oseltamivir Phosphate (Tamiflu) 75 Mg Cap, 75 MG PO BID for 5 Days, #10 CAP Prov:LAURA COOK V [facility] 11/13/22 Indomethacin (Indomethacin) 50 Mg Capsule, 50 MG PO TID for 30 Days, #90 CAP Prov:LAURA COOK V [facility] 07/11/22 Indomethacin (Indomethacin) 50 Mg Capsule, 50 MG PO TID PRN for PAIN, #30 CAP 0 Refills Prov:GERTRUDE TARIQ MD 05/23/22 Indomethacin (Indomethacin) 50 Mg Capsule, 50 MG PO TIDP PRN for Gout pain, #20 CAP 2 Refills Prov:KIERAN ECHEVERRIA MD 01/22/22 Indomethacin (Indomethacin) 50 Mg Capsule, 50 MG PO TIDP PRN for SEVERE PAIN (7- 10), #20 CAP 0 Refills Prov:KIERAN ECHVEERRIA MD 12/28/21 Time spent arranging discharge: 31-60 minutes ATTESTATION BY PHYSICIAN I have seen and examined the patient. I reviewed the documentation, medical decision making, and treatment plan as noted by the mid-level provider above. I agree with the findings and plan of care. RUBIN ORONA MD, KATARZYNA B [facility] Mar 24, 2025 18:58
--- NOTE | 2025-03-25 20:40 | OP ---
DATE OF PROCEDURE: 03/19/2025 DATE OF SURGERY: 03/19/2025 PREOPERATIVE DIAGNOSIS: Left chest wall cellulitis and abscess. POSTOPERATIVE DIAGNOSIS: Left chest wall cellulitis and abscess. PROCEDURE PERFORMED: Incision and drainage left chest wall abscess. SURGEON: Kizzy Lira M.D. ANESTHESIA: General. ESTIMATED BLOOD LOSS: Minimal. FINDINGS: Abscess with lots of indurated tissues. SPECIMEN: Pus, some sent for Gram stain, culture, and sensitivity. COMPLICATIONS: None. PROCEDURE: The patient was brought into the operating room. After proper identification, the patient was placed on the operating table in the supine position. General anesthesia was then administered and the patient was endotracheally intubated. Attention was then focused in the area of the chest wall. The skin was prepped and draped in the usual sterile fashion. An appropriate timeout was then carried out. Inspection of the left chest wall showed evidence of erythema, fluctuance and swelling. I proceeded to make a cruciate incision in the most fluctuant aspect of the abscess. The incision was carried through skin and subcutaneous tissue until the abscess cavity was encountered. Pus was drained. Some of this was sent for Gram stain, culture, and sensitivity. I then used a Madelin clamp to break into various loculations of the abscess cavity. Once this was adequately drained, I copiously irrigated the wound with antibiotic irrigation. Hemostasis was achieved using the Bovie cautery. I then proceeded to pack the wound with 1-inch iodoform gauze. Sterile dressings were then applied. Instrument and sponge count correct x 2. The patient was then woken up, extubated, and taken to the recovery room in stable condition. The patient tolerated the procedure well. TID: [id number] RECEIPT: [id number]
== END 2025-03-24 15:30 | DRG 872 ==
LOC: 4DH 17:43
PROVIDERS: ADMIT Internal Medicine; ATTEND Internal Medicine
PROC: 0J960ZZ Drainage of Chest Subcutaneous Tissue and Fascia, Open Approach (ICD-10-PCS; principal; 2025-03-19 11:56)
DX: A41.02 Sepsis due to Methicillin resistant Staphylococcus aureus (principal); E88.09 Other disorders of plasma-protein metabolism, not elsewhere classified; L02.213 Cutaneous abscess of chest wall; L03.313 Cellulitis of chest wall; Z68.41 Body mass index [BMI] 40.0-44.9, adult; M10.9 Gout, unspecified; E66.01 Morbid (severe) obesity due to excess calories; Z87.891 Personal history of nicotine dependence; Z83.3 Family history of diabetes mellitus; Z79.899 Other long term (current) drug therapy
CPT/HCPCS: 36415; 36556; 71045; 73100; 80048; 80053; 80202; 83036; 83735; 83880; 84100; 84145; 84443; 85025; 85027; 85610; 85730; 86140; 87040; 87070; 87076; 87086; 87186; 87205; 93971; A4450; A6266; C1894; G0378; J0690; J0692; J1100; J1171; J1650; J1885; J2003; J2250; J2270; J2371; J2405; J2704; J2919; J3010; J3475; J3490; A4216; A4222; A4223; A4930; C1750; J0665; J1308; J3373; J3375

== ENCOUNTER → 2025-04-16 | Outpatient (CLI) | payer BC | END | disposition home or self-care (01) | LOC: WHH 08:17 | PROVIDERS: ATTEND Family Medicine | DX: T81.89XA Other complications of procedures, not elsewhere classified, initial encounter (principal); S41.102A Unspecified open wound of left upper arm, initial encounter; L02.412 Cutaneous abscess of left axilla; M10.9 Gout, unspecified; E66.01 Morbid (severe) obesity due to excess calories; Z79.899 Other long term (current) drug therapy; Z68.41 Body mass index [BMI] 40.0-44.9, adult; Z87.891 Personal history of nicotine dependence; Y83.8 Other surgical procedures as the cause of abnormal reaction of the patient, or of later complication, without mention of misadventure at the time of the procedure; Y92.238 Other place in hospital as the place of occurrence of the external cause; X58.XXXA Exposure to other specified factors, initial encounter; Y93.89 Activity, other specified; Y92.89 Other specified places as the place of occurrence of the external cause; Y99.8 Other external cause status | CPT/HCPCS: 99215 ==